=== PATIENT | female | born 1940 | race Caucasian/White ===

== ENCOUNTER 2019-08-06 17:46 | Emergency (ER) | payer MEDICARE, OTHER ==
--- OUTSIDE RECORDS SUMMARY | 2019-08-06 18:14 | XMS REPORT | Continuity of Care Document ---
:1940 External Reference #:[id number] Author Name MICHELLE Nicole (transmitted by agent of provider Dawood Hager M.D.) Address [address] [place] [address] Care Team Providers Name Role Phone Russ Fallon MD - Orthopaedic Surgery Care Team Information Personnel Arbitrator [phone] Dewayne Nelson MD - Wound Care Care Team Information Personnel Arbitrator [facility] - Clinic/Center Care Team Information Personnel Arbitrator Problems Active Problems Provider Date Benign essential hypertension Dawood Hager M.D. Onset: 01/08/2007 Hypothyroidism Dawood Hager M.D. Onset: 01/08/2007 Pure hypercholesterolemia Dawood Hager M.D. Onset: 01/08/2007 Rheumatoid arthritis Dawood Hager M.D. Onset: 01/08/2007 Osteoporosis Dawood Hager M.D. Onset: 11/14/2007 Degenerative joint disease involving multiple Dawood Hager M.D. Onset: joints Irritable bowel syndrome Dawood Hager M.D. Onset: 10/09/2011 Gastroesophageal reflux disease Dawood Hager M.D. Onset: 05/21/2017 Mixed hyperlipidemia Dawood Hager M.D. Onset: 05/21/2017 Rheumatoid arthritis with organ / system Dawood Hager M.D. Onset: 2015 involvement Osteochondropathy Dawood Hager M.D. 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 Onset: 10/11/2015 Vitamin D deficiency Dawood Hager M.D. 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 Onset: 05/27/2015 Social History Type Date Description Comments Sex Unknown Tobacco Use Start: Unknown Nonsmoker Tobacco Use Start: Unknown Patient has never smoked Smoking Status Reviewed: 08/06/19 Patient has never smoked Allergies, Adverse Reactions, Alerts Active Allergies Reaction Severity Comments Date Penicillin 03/07/2006 Erythromycin 03/07/2006 Tetracycline 03/07/2006 Oysters 03/07/2006 Shellfish-derived Products 02/08/2011 Meloxicam rash 05/08/2012 Linezolid 10/19/2014 Keflex Anaphylaxis 04/17/2016 Gabapentin itch 08/30/2016 Medications Active Medications SIG Qnty Indications Ordering Date Provider Fluconazole take 1 by mouth 2tabs N76.0 Flores 06/24/2019 100mg with onset vaginal Vee, [employer]ATION [employer] Tablets yeast symptoms, if incomplete response, repeat at 5-7 days Levothyroxine Sodium take 1 tablet by 90tabs E03.9 Flores 04/14/2019 mouth every day Vee, [employer] 100mcg Tablets Atenolol Take 1 Tablet By 90tabs Dawood Hager, 08/29/2017 100mg Mouth Every Day M.D. Tablets Gauze Dressing dispense quantity M05.20 Flores 03/05/2017 4"X4" 60 for 2 times Vee, [employer]ATION [employer] Pads daily use Gauze Bandage dispense quantity M05.20 Flores 03/05/2017 for daily use Vee, [employer] rolls 3" guaze wrap Santyl apply sparingly to 90gm M79.605 Flores 11/08/2016 250Unit/GM wounds of Vee, [employer] Ointment bilateral lower extremities daily with dsg change Xeroform Occlusive dispense one box OneBox M79.605 Flores 11/08/2016 Petroltum Gauze guazes for daily Vee, [employer] Patch 4"X4" dressing changes 4"X4" Pads Oxycodone-Acetaminop 1 tab by mouth 90tabs Flores 11/08/2016 hen three times a day NATALIIA Baxter 5-325mg Tablets as needed for pain Potassium Chloride 1 by mouth 2-3 100tabs Flores 01/11/2016 ER times per week MCKAYLA BaxterP 20Meq Tablets ER Triamterene/Hydrochl 2-3 times per week 30caps Dawood Hager MD 2014 orothiazide 37.5-25mg Capsules Epipen 2-Omid use as directed 2units Flores 05/27/2015 VeeMCKAYLA tranP 0.3mg/0.3ML Solution Auto-Inject Hydroxyzine HCL take 1 tablet by 90tabs Flores 03/07/2006 10mg mouth every day . MCKAYLA BaxterP Tablets max daily dose: 1 tablet Atorvastatin Calcium take 1 tablet by 90tabs Flores 03/07/2006 mouth every day NATALIIA Baxter 10mg Tablets Loperamide HCL daily 20tabs Unknown 2mg Tablets Silvadene two times a day as 170gm Flores 1% Cream needed NATALIIA Baxter Vitamin D 1 by mouth every Unknown 800Iu day Tablets History Medications Prednisone take 2 po bid x 30tabs M79.604 Flores 05/23/2019 - 5mg 3 days, then NATALIIA Baxter 06/24/2019 Tablets take 1 po tid x 3 days, then take 1 po bid x 3 days, then 1 po qd x 3 days, then stop Doxycycline Hyclate take one 180caps L03.115 Flores 04/18/2019 - capsule by NATALIIA Baxter 06/24/2019 100mg Capsules mouth twice a day Immunizations CPT Code Status Date Vaccine Lot # [id number] Given 02/10/2015 Pneumococcal Conjugate Vacc-13 [id number] Given 07/26/2014 DO Not Use Split Influenza Virus Vaccine [id number] Given 08/09/2011 Split Influenza Medicare: Fludomenica [id number] Given 08/22/2010 DO Not Use Split Influenza Virus Vaccine [id number] 51274 Given 07/10/2009 DO Not Use Split Influenza Virus Vaccine [id number] 30987 Given 09/07/2008 Pneumococcal Immunization [id number] Vital Signs Date Vital Result Comment 08/06/2019 4:34pm BP Systolic 120 mmHg BP Diastolic 88 mmHg Heart Rate 68 /min Body Temperature 98.4 F Respiratory Rate 18 /min Weight 230.00 lb 06/24/2019 2:31pm BP Systolic 126 mmHg BP Diastolic 80 mmHg Heart Rate 70 /min Body Temperature 98.4 F Respiratory Rate 17 /min Height 59.25 inches 4'11.25" Weight 218.00 lb BMI (Body Mass Index) 43.7 kg/m2 Results Test Date Facility Test Result H/L Range Note Wound 07/01/2019 [facility] Wound/Misc SEE RESULT BELOW 1 Culture/Sensi Culture-Gram Stain 1 SEE RESULT BELOW Name: BERTHA WHEELER : [address]: Dewayne Nelson MD Acct: [id number] Unit: [id number] AGE: 79 Location: WOUND Re07/01/19 SEX: F Status: REG REF SPEC: [id number] NOBLE: 07/01/[address] [facility] [address]: Dewayne Nelson MD REQ: [id number] RECD: 07/01/19 STATUS: SWAPNA APPIAH DR: Dawood Hager MD _ SOURCE: LEG, RIGHT SPDESC: ORDERED: Culture Stain Procedure Result Reported Site Wound/Misc Gram Stain Final 07/02/19- 46 ML No Neutrophils Observed 1+ Epithelial Cells 4+ Gram Positive Cocci 1+ Gram Negative Bacilli Wound/Misc Culture Final 07/05/19- 912 ML Organism 1 PSEUDOMONAS AERUGINOSA Quantity 3+ Organism 2 SERRATIA MARCESCENS Quantity 2+ Organism 3 STREP AGALACTIAE - (GROUP B) Quantity 2+ Organism 4 ESBL KLEBSIELLA OXYTOCA Quantity 1+ Organism 5 NORMAL XUAN Quantity 1+ STREP AGALACTIAE - (GROUP B):Organism nonviable for further testing. This isolate is an Extended Spectrum Beta-Lactamase 3Rd Grade Teacher (ESBL) strain, and as such is considered resistant for all penicillins, cephalosporins and aztreonam. 1. PSEUDOMONAS AERUGINOSA [facility] RX --------- ------ Cefazolin >=64 R Cefepime 4 S Ciprofloxacin 2 I Gentamicin 4 S Levofloxacin >=8 R Meropenem <=0.25 S CONTINUED ON NEXT PAGE DEPARTMENT OF PATHOLOGY, [address] [place] [address] Ed Boston M.D. Director [facility] # [id number] Specimen: [id number] Collected: 07/01/19 Received: 07/01/19 (Continued) Procedure Result Reported Site Wound/Misc Culture Final (continued) 07/05/19912 1. PSEUDOMONAS AERUGINOSA (continued) [facility].I.C. RX --------- ------ Pipercillin/Tazobactam <=4 S 2. SERRATIA MARCESCENS [facility] RX --------- ------ Cefazolin >=64 R Cefepime <=1 S Ceftriaxone <=1 S Ciprofloxacin <=0.25 S Gentamicin <=1 S Levofloxacin <=0.12 S Meropenem <=0.25 S Tetracycline >=16 R Trimethoprim/Sulfamethoxazole <=20 S Amoxicillin/Clavulanic Acid >=32 R Aztreonam <=1 S 3. STREP AGALACTIAE - (GROUP B) [facility].I.[facility]. RX --------- ------ Ampicillin <=0.25 S Penicillin <=0.12 S Clindamycin S Levofloxacin 1 S Linezolid 2 S * Moxifloxacin <=0.25 S * Quinupristin/Dalfopristin <=0.25 S Tetracycline >=16 R 4. ESBL KLEBSIELLA OXYTOCA [facility].I.C. RX --------- ------ Ampicillin >=32 R Cefazolin >=64 R Cefepime R Ceftriaxone >=64 R Ciprofloxacin 2 I Gentamicin <=1 S Levofloxacin 1 S Meropenem <=0.25 S Tetracycline >=16 R Pipercillin/Tazobactam 32 I Trimethoprim/Sulfamethoxazole >=320 R CONTINUED ON NEXT PAGE DEPARTMENT OF PATHOLOGY, [address] [place] [address] Ed Boston M.D. Director [facility] # [id number] Specimen: [id number] Collected: 07/01/19 Received: 07/01/19 (Continued) Procedure Result Reported Site Wound/Misc Culture Final (continued) 07/05/19- 912 4. ESBL KLEBSIELLA OXYTOCA (continued) M.I.C. RX --------- ------ Amoxicillin/Clavulanic Acid 16 I Aztreonam >=64 R * These antibiotics are not available in the [facility] Formulary Contact the Microbiology Department for any additional antibiotic reporting. Contact the Microbiology Department for any additional antibiotic reporting. * ML - Main Lab . END OF REPORT DEPARTMENT OF PATHOLOGY, [address] [place] [address] Ed Boston M.D. Director [facility] # [id number] Procedures Date Code Description Status 06/13/2018 [id number] Mammogram Completed 09/10/2017 [id number] Bone Mineral Density Test Completed 03/12/2017 [id number] Mammogram Completed 11/28/2016 [id number] Colonoscopy Completed 12/13/2015 [id number] Mammogram Completed 04/21/2015 [id number] Mammogram Completed 02/14/2013 [id number] Mammogram Completed 10/04/2011 [id number] Colonoscopy Completed 01/24/2011 [id number] Mammogram Completed 03/13/2008 [id number] Mammogram Completed 12/26/2006 [id number] Mammogram Completed 06/13/2006 [id number] Colonoscopy Completed Medical Devices Description No Information Available Encounters Type Date Location Provider Dx Diagnosis Office Visit 06/24/2019 Main Office Flores Baxter, I89.0 Lymphedema, not 2:15p [employer] elsewhere classified M79.604 Pain in right leg L03.115 Cellulitis of right lower limb 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 [facility] N76.0 Acute vaginitis Office Visit 05/23/2019 2:45p Main Office Flores I89.0 Lymphedema, not Vee, [employer] elsewhere classified M79.604 Pain in right leg L03.115 Cellulitis of right lower limb 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 [facility] Office Visit 04/29/2019 3:00p Main Office Flores M05.20 Rheumatoid Vee, [employer] vasculitis with rheumatoid arthritis of [facility] I89.0 Lymphedema, not elsewhere classified M79.604 Pain in right leg L03.115 Cellulitis of right lower limb Office Visit 04/18/2019 1:45p Main Office Flores M05.20 Rheumatoid Vee, [employer] vasculitis with rheumatoid arthritis of [facility] I89.0 Lymphedema, not elsewhere classified M79.604 Pain in right leg L03.115 Cellulitis of right lower limb Assessments Date Code Description Provider 08/06/2019 R21 Rash and other nonspecific skin eruption MICHELLE Nicole 06/24/2019 I89.0 Lymphedema, not elsewhere classified NATALIIA Laughlin 06/24/2019 M79.604 Pain in right leg MCKAYLA LaughlinP 06/24/2019 L03.115 Cellulitis of right lower limb NATALIIA Laughlin 06/24/2019 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 Flores Vee, [employer] arthritis of unspecifi 06/24/2019 N76.0 Acute vaginitis Flores Vee, [employer] 05/23/2019 I89.0 Lymphedema, not elsewhere classified Flores Vee, [employer] 05/23/2019 M79.604 Pain in right leg Flores Vee, [employer] 05/23/2019 L03.115 Cellulitis of right lower limb Flores Vee, [employer] 05/23/2019 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 Flores Vee, [employer] arthritis of unspecifi 04/29/2019 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 Flores Vee, [employer] arthritis of unspecifi 04/29/2019 I89.0 Lymphedema, not elsewhere classified Flores Vee, [employer] 04/29/2019 M79.604 Pain in right leg Flores Vee, [employer] 04/29/2019 L03.115 Cellulitis of right lower limb Flores Vee, [employer] 04/18/2019 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 at Main [facility]2008/06/2019 - Heidy Blanco, PAR21 Rash and other nonspecific skin eruptionComments:Sent to Emergency Room for further evaluation.Dr. Hager gave report to ER MD. Patient was warned ofthe risks of not going to the emergency room for further evaluation including loss of limb or .AllComments: PCMHMedication Management Patient Understands medications he's taking? Yes Are there Barriers to Adherence? No Has the patient been asked about herbal supplements and therapies, and OTC meds? Yes Care Plan1. Patient has been queried about patient's goals/preferences and functional/ lifestyle goals at relevant visits. Yes If relevant, describe: N/A2. Treatment goals as explained to the patient: above3. Are there barriers to meeting treatment goals? No If Yes, please describe:4. Self-Management goals as described to the patient: Yes As always, we strongly encourage a healthy diet and making physical activity a part of your every day life. If you have questions about how or where to start, please contact the office. Functional Status Description No Information Available Mental Status Description No Information Available Referrals Refer to Reason for Referral Status Appt Date [facility] W[facility] Consult and treat. Office note, labs and triage Sent faxed. LT [address] Floor AT [address] [address] [phone]
--- OUTSIDE RECORDS SUMMARY | 2019-08-06 18:14 | XMS REPORT | Continuity of Care Document ---
:1940 External Reference #:[id number] Author Name Cecilia Noriega NP (transmitted by agent of provider Mary Alexandra) Address [address] [place] [id number] Care Team Providers Name Role Phone Dawood Hager MD - Family Care Team Information [employer] Therapist [phone] Medicine Problems Active Problems Provider Date Rheumatoid arthritis Doe Moreno M.D. Onset: 07/30/2012 Medications Care Home (Current) Use Encounter Doe Moreno M.D. Onset: 06/2012 Lumbosacral spondylosis without myelopathy Doe Moreno M.D. Onset: 2011 Localized, primary osteoarthritis of the lower Doe Moreno M.D. Onset: leg Malaise and fatigue Doe Moreno M.D. Onset: 04/03/2013 Hypothyroidism Doe Moreno M.D. Onset: 06/19/2013 Allergic urticaria Doe Moreno M.D. Onset: 06/19/2013 Degenerative joint disease involving multiple Inocente Palomino M.D. Onset: 06/23 joints Migraine Inocente Palomino M.D. Onset: 08/31/2014 Cellulitis and abscess of foot excluding toe Inocente Palomino M.D. Onset: 2013 Cellulitis and abscess of lower limb Inocente Palomino M.D. Onset: 09/09/2014 Eruption Inocente Palomino M.D. Onset: 09/09/2014 Cellulitis Inocente Palomino M.D. Onset: 09/16/2014 Hypersensitivity angiitis Inocente Palomino M.D. Onset: 09/16/2014 Ulcer of lower extremity Doe Moreno M.D. Onset: 12/07/2014 Taking medication Doe Moreno M.D. Onset: 12/07/2014 Pruritus of skin Doe Moreno M.D. Onset: 03/01/2015 Social History Type Date Description Comments Sex Unknown Tobacco Use Start: Unknown Never Smoked Cigarettes ETOH Use Occasionally consumes alcohol Tobacco Use Start: Unknown Patient has never smoked Recreational Drug Use Denies Drug Use Smoking Status Reviewed: 07/24/19 Patient has never smoked Allergies, Adverse Reactions, Alerts Active Allergies Reaction Severity Comments Date Sulfa 01/27/2011 Keflex 01/27/2011 Penicillin 01/27/2011 Erythromycin 01/27/2011 Shellfish-derived Products 01/27/2011 Tetracycline 01/27/2011 Clindamycin diarrhea 10/08/2014 Zyvox Violent diarrhea 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 Misc and venous stasis with compression stockings Epipen 2-Omid take as directed 2uzair Casper, 04/25/2018 for severe M.D. 0.3mg/0.3ML Solution allergic reaction Auto-Inject Caltrate 600+D take one 180tabs Tray Casper, 09/16/2017 capsule/tablet by [facility] [id number] mouth twice daily Tablets Atorvastatin Calcium Take 1 Tablet 90tabs Doe Moreno, 02/22/2015 Daily M.D. 10mg Tablets Triamterene/Hydrochl Take 1 Capsule 90caps Doe Moreno, 09/09/2012 orothiazide Daily (Pt. is M.D. 37.5-25mg taking this only Capsules two times a week) Hydroxyzine HCL take 1 tablet at 120tabs Doe Moreno, 06/01/2011 10mg bedtime and as M.D. Tablets needed every day Aspirin 1 po qd (pt is Unknown [address] aspirins a day) Potassium Chloride 1 po twice a week 30tabs Unknown ER 20Meq Tablets ER Atenolol take 2 tablet Unknown 50mg Tablets daily Levothyroxine Sodium once a day Unknown 100mcg Solution Rec Multivitamin Adults once a day Unknown 50+ Adlt 50+ Tablets Tums 1 or 2 chewtabs by Unknown 500mg Chewtabs mouth as needed, indigestion Loperamide HCL Unknown 2mg Capsules Gentamicin Sulfate Apply Topicallly Unknown Every Day 0.1% Ointment Medications Administered in Office Medication SIG Qnty Indications Ordering Provider Date SHANKAR Moreno M.D. 03/11/2012 Injection Immunizations CPT Code Status Date Vaccine Reaction Lot # [id number] Given 08/01/2018 Fluzone High Dose [id number] 48490 Given 08/23/2017 Influenza Virus Vaccine, no immediate reaction [id number] Quadrivalent, Split, noted Preservative Free 52803 Given 07/18/2016 Influenza Virus Vaccine, [id number] Quadrivalent, Split, Preservative Free 44193 Given 09/03/2015 Influenza Virus Vaccine, No reaction noted. [id number] Quadrivalent, Split, Preservative Free Q2038 Given 07/30/2012 Fluzone Vaccine [id number] Vital Signs Date Vital Result Comment 07/24/2019 11:52am Height 61 inches 5'1" Weight 214.00 lb Heart Rate 72 /min BP Systolic Sitting 142 mmHg BP Diastolic Sitting 90 mmHg Respiratory Rate 14 /min Body Temperature 98.3 F BMI (Body Mass Index) 40.4 kg/m2 07/17/2019 10:32am Height 61 inches 5'1" Weight 214.00 lb Heart Rate 72 /min BP Systolic Sitting 112 mmHg BP Diastolic Sitting 72 mmHg Respiratory Rate 14 /min Body Temperature 99.7 F BMI (Body Mass Index) 40.4 kg/m2 Results Description No Information Available Procedures Date Code Description Status 07/15/2019 05029 Removal Devitalized Tissue Wound Greater Than 20 Completed Square CM 07/15/2019 50907 Removal Devitalized Tissue Wound Greater Than 20 Completed Square CM 07/15/2019 32696 Removal Devitalization Tissue Wound Less Than Equal 20 Completed Square CM 07/08/2019 36882 Removal Devitalized Tissue Wound Greater Than 20 Completed Square CM 07/08/2019 87140 Removal Devitalization Tissue Wound Less Than Equal 20 Completed Square CM 07/01/2019 39744 Removal Devitalized Tissue Wound Greater Than 20 Completed Square CM 07/01/2019 71699 Removal Devitalized Tissue Wound Greater Than 20 Completed Square CM 07/01/2019 64441 Removal Devitalized Tissue Wound Greater Than 20 Completed Square CM 07/01/2019 70794 Removal Devitalization Tissue Wound Less Than Equal 20 Completed Square CM 02/10/2019 38365 ECHO Transthoracic, Real-Time 2D With Doppler And Completed Color Flow 02/10/2019 57044 ECHO Transthoracic, Real-Time 2D With Doppler And Completed Color Flow 09/10/2017 [id number] Bone Mineral Density Test Completed 11/28/2016 [id number] Colonoscopy Completed 09/07/2015 [id number] Bone Mineral Density Test Completed 02/14/2013 [id number] Mammogram Completed 08/08/2011 775273946 Bone Mineral Density Test Completed Medical Devices Description No Information Available Encounters Description No Information Available Assessments Date Code Description Provider 07/24/2019 L03.115 Cellulitis of right lower limb Cecilia Noriega NP 07/24/2019 I87.313 Chronic venous hypertension Cecilia Noriega NP (idiopathic) with ulcer of bilateral lower extremity 07/24/2019 I89.0 Lymphedema, not elsewhere Cecilia Noriega NP classified 07/17/2019 L03.115 Cellulitis of right lower limb Cecilia Noriega NP 07/17/2019 I87.313 Chronic venous hypertension Cecilia Noriega NP (idiopathic) with ulcer of bilateral lower extremity 07/17/2019 I89.0 Lymphedema, not elsewhere Cecilia Noriega NP classified 07/15/2019 I87.313 Chronic venous hypertension Dewayne Nelson M.D. (idiopathic) with ulcer of bilateral lower extremity 07/15/2019 I89.0 Lymphedema, not elsewhere Dewayne Nelson M.D. classified 07/08/2019 I87.313 Chronic venous hypertension Dewayne Nelson M.D. (idiopathic) with ulcer of bilateral lower extremity 07/08/2019 I89.0 Lymphedema, not elsewhere Dewayne Nelson M.D. classified 07/01/2019 I87.313 Chronic venous hypertension Dewayne Nelson M.D. (idiopathic) with ulcer of bilateral lower extremity 07/01/2019 I89.0 Lymphedema, not elsewhere Dewayne Nelson M.D. classified 02/10/2019 I51.89 Other ill-defined heart diseases Arian Banuelos M.D., [facility] 02/10/2019 I51.89 Other ill-defined heart diseases Traveling ECHO 1 02/10/2019 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 with Traveling ECHO 1 rheumatoid arthritis of unspecifi Plan of Treatment Future Appointment(s):08/15/2019 3:00 pm - Cecilia Noriega NP at [facility]zcl[facility]78/03/2019 - Cecilia Noriega NPL03.115 Cellulitis of right lower limbFollow up:2-3 otcrjQ31.313 Chronic venous hypertension w ulcer of bilateral low hqwljE61.0 Lymphedema, not elsewhere classified Functional Status Description No Information Available Mental Status Description No Information Available Referrals Description No Information Available
--- OUTSIDE RECORDS SUMMARY | 2019-08-06 18:14 | XMS REPORT | Continuity of Care Document ---
:1940 External Reference #:[id number] Author Name Flores Baxter, NATALIIA Address [address] [place] [address] Care Team Providers Name Role Phone Russ Fallon MD - Orthopaedic Surgery Care Team Information Java J2Ee Technical Lead Dewayne Nelson MD - Wound Care Care Team Information Java J2Ee Technical Lead [facility] [place] [facility]/Center Care Team Information Java J2Ee Technical Lead [phone] Problems Active Problems Provider Date Benign essential [...] Use Start: Unknown Patient has never smoked Allergies, Adverse Reactions, Alerts Active Allergies Reaction Severity Comments Date Penicillin 03/07/2006 Erythromycin 03/07/2006 Tetracycline 03/07/2006 Oysters 03/07/2006 Shellfish-derived Products 02/08/2011 Meloxicam rash 05/08/2012 Linezolid 10/19/2014 Keflex Anaphylaxis 04/17/2016 Gabapentin itch 08/30/2016 Medications Active Medications SIG Qnty Indications Ordering Date Provider Fluconazole take 1 by mouth 2tabs N76.0 Florse 06/24/2019 100mg with onset vaginal Vee, CAR CLE[employer]ER Tablets yeast symptoms, if incomplete response, repeat at 5-7 days Levothyroxine Sodium take 1 tablet by 90tabs E03.9 Flores 04/14/2019 mouth every day Vee, [employer] CLE[employer]ER 100mcg Tablets Atenolol Take 1 Tablet By 90tabs Dawood Hager, 08/29/2017 100mg Mouth Every Day M.D. Tablets Gauze Dressing dispense quantity M05.20 Flores 03/05/2017 4"X4" 60 for 2 times Vee, CAR CLEANER Pads daily use Gauze Bandage dispense quantity M05.20 Flores 03/05/2017 for daily use Vee, CAR CLEANER rolls 3" guaze wrap Santyl apply sparingly to 90gm M79.605 Flores 11/08/2016 250Unit/GM wounds of Vee, [employer] CLEANER Ointment bilateral lower extremities daily with dsg change Xeroform Occlusive dispense one box OneBox M79.605 Flores 11/08/2016 Petroltum Gauze guazes for daily Vee, [employer] CLE[employer]ER Patch 4"X4" dressing changes 4"X4" Pads Oxycodone-Acetaminop 1 tab by mouth 90tabs Flores 11/08/2016 hen three times a day Vee, [employer] CLE[employer]ER 5-325mg Tablets as needed for pain Potassium Chloride 1 by mouth 2-3 100tabs [place] 01/11/2016 ER times per week Vee, [employer] CLE[employer]ER 20Meq Tablets ER Triamterene/Hydrochl 2-3 times per week 30caps Dawood Hager MD 2014 orothiazide 37.5-25mg Capsules Epipen 2-Omid use as directed 2units [place] 05/27/2015 Vee, CAR CLE[employer]ER 0.3mg/0.3ML Solution Auto-Inject Hydroxyzine HCL take 1 tablet by 90tabs [place] 03/07/2006 10mg mouth every day . Vee, [employer] CLE[employer]ER Tablets max daily dose: 1 tablet Atorvastatin Calcium take 1 tablet by 90tabs [place] 03/07/2006 mouth every day Vee, [employer] CLE[employer]ER 10mg Tablets Loperamide HCL daily 20tabs Unknown 2mg Tablets Silvadene two times a day as 170gm [place] 1% Cream needed Vee, [employer] CLE[employer]ER Vitamin D 1 by mouth every Unknown 800Iu day Tablets History Medications Prednisone take 2 po bid x 3 30tabs M79.604 [place] 05/23/2019 - 5mg days, then take 1 Vee, [employer] CLE[employer] 06/24/2019 Tablets po tid x 3 days, then take 1 po bid x 3 days, then 1 po qd x 3 days, then stop Doxycycline take one capsule 180caps L03.115 [place] 04/18/2019 - Hyclate by mouth twice a Vee, [employer] CLE[employer]ER 06/24/2019 100mg day Capsules Doxycycline take one by mouth 90caps [place] 01/23/2019 - Hyclate daily/ has taken Vee, [employer] CLE[employer]ER 04/18/2019 100mg doxycycline Capsules without difficulty in past Immunizations CPT Code Status Date Vaccine Lot # [id number] Given 02/10/2015 Pneumococcal Conjugate Vacc-13 [id number] Given 07/26/2014 DO Not Use Split Influenza Virus Vaccine [id number] Given 08/09/2011 Split Influenza Medicare: Fludomenica [id number] Given 08/22/2010 DO Not Use Split Influenza Virus Vaccine [id number] 72880 Given 07/10/2009 DO Not Use Split Influenza Virus Vaccine [id number] 35688 Given 09/07/2008 Pneumococcal Immunization [id number] Vital Signs Date Vital Result Comment 06/24/2019 2:31pm BP Systolic 126 mmHg BP Diastolic 80 mmHg Heart Rate 70 /min Body Temperature 98.4 F Respiratory Rate 17 /min Height 59.25 inches 4'11.25" Weight 218.00 lb BMI (Body Mass Index) 43.7 kg/m2 05/23/2019 3:07pm BP Systolic 128 mmHg BP Diastolic 88 mmHg Heart Rate 57 /min Body Temperature 97.7 F Respiratory Rate 20 /min O2 % BldC Oximetry 95 % Height 59.25 inches 4'11.25" Weight 220.00 lb BMI (Body Mass Index) 44.1 kg/m2 Results Test Date Facility Test Result H/L Range Note Laboratory test 01/23/2019 Mazin Dannielle([facility]) TSH 3.09 mIU/L 0.50-6.00 finding Free T4 1.13 ng/dL 0.75-1.54 CBC Electronic Fma 01/23/2019 Mazin Spicer([facility]) WBC 8.5 x10^3/UL 4.0- 10.0 RBC 4.66 x10^6/UL 3.93-6.00 HGB 12.9 g/dL 12.0-17.0 HCT 40 % 35-50 MCV 85.6 fL 80.0-95.0 MCH 27.7 pg 25.6-32.2 MCHC 32.3 g/dL 32.2-36.0 RDW-CV 14.5 % High 11.6-14.4 PLT 263 x10^3/UL 163-400 MPV 8.7 fL Low 9.4-12.4 Shanelle# 6.57 x10^3/UL High 1.56-6.13 Lymph# 1.18 x10^3/UL 1.18-3.74 Lyman# 0.69 x10^3/UL 0.24-0.82 Eos # 0.0 x10^3/UL 0.0-0.5 Baso # 0.00 x10^3/UL Low 0.01-0.08 Shanelle% 77.7 % High 34.0-70.0 Lymph % 13.9 % Low 20.0-52.0 Lyman% 8.2 % 5.0-12.0 Eos% 0.0 % Low 0.7-7.0 Baso% 0.0 % Low 0.1-1.2 Comprehensive Metabolic 01/23/2019 Retana Dannielle([facility]) Sodium 142 mEq/L 134-149 Prof Potassium 5.1 mEq/L 3.6-5.5 Chloride 102 mEq/L 94-112 Carbon Dioxide 30 mEq/L 21-32 Glucose 85 mg/dL 70-105 BUN 22 mg/dL 6-26 Creatinine 0.9 mg/dL 0.6-1.4 BUN/Creat Ratio 24.4 CALC 8.0-36.0 Calcium 9.9 mg/dL 8.6-10.2 Total Protein 6.9 g/dL 6.4-8.3 Albumin 4.3 g/dL 3.8-5.5 Globulin 2.6 g/dL 2.0-4.8 A/G Ratio 1.7 CALC 0.6-2.3 Alk. Phosphatase 99 U/L 30-110 Alt (SGPT) 18 U/L 7-35 Ast (Sgot) 26 U/L 5-34 Total Bilirubin 0.5 mg/dL 0.2-1.3 GFR Non- >60 ml/min/1.73m^ >=60 GFR >60 ml/min/1.73m^ >=60 Procedures Date Code Description Status 06/13/2018 [id number] Mammogram Completed 09/10/2017 [id number] Bone Mineral Density Test Completed 03/12/2017 [id number] Mammogram Completed 11/28/2016 [id number] Colonoscopy Completed 12/13/2015 [id number] Mammogram Completed 04/21/2015 [id number] Mammogram Completed 02/14/2013 [id number] Mammogram Completed 10/04/2011 [id number] Colonoscopy Completed 01/24/2011 [id number] Mammogram Completed 03/13/2008 [id number] Mammogram Completed 12/26/2006 [id number] Mammogram Completed 06/13/2006 [id number] Colonoscopy Completed Medical Devices Description No Information Available Encounters Type Date Location Provider Dx Diagnosis Office Visit 05/23/2019 Main Office Flores Baxter, I89.0 Lymphedema, not 2:45p CAR CLEANER elsewhere classified M79.604 Pain in right leg L03.115 Cellulitis of right lower limb 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 [facility] Office Visit 04/29/2019 3:00p Main Office Flores 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 Rheumatoid Vee, [employer] CLE[employer]ER vasculitis with rheumatoid arthritis of [facility] I89.0 Lymphedema, not elsewhere classified M79.604 Pain in right leg L03.115 Cellulitis of right lower limb Office Visit 04/18/2019 1:45p Main Office Flores 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 Rheumatoid Vee, [employer] CLE[employer] vasculitis with rheumatoid arthritis of [facility] site I89.0 Lymphedema, not elsewhere classified M79.604 Pain in right leg L03.115 Cellulitis of right lower limb Office Visit 01/23/2019 [place] Flores E03.9 Hypothyroidism, 2:00p Office Vee, [employer] CLE[employer]ER unspecified 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 [facility] site I89.0 Lymphedema, not elsewhere classified M79.605 Pain in left leg N39.41 Urge incontinence K92.1 Melena Assessments Date Code Description Provider 06/24/2019 I89.0 Lymphedema, not elsewhere classified Flores Vee, [employer] 06/24/2019 M79.604 Pain in right leg Flores Vee, [employer] 06/24/2019 L03.115 Cellulitis of right lower limb Flores Vee, [facility] 06/24/2019 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 Flores Vee, [employer] CLE[employer] arthritis of unspecifi 06/24/2019 N76.0 Acute vaginitis Flores Vee, [employer] 05/23/2019 I89.0 Lymphedema, not elsewhere classified Flores Vee, [employer] 05/23/2019 M79.604 Pain in right leg Flores Vee, [facility] 05/23/2019 L03.115 Cellulitis of right lower limb Flores Vee, [employer] 05/23/2019 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 Flores Vee, [employer] arthritis of unspecifi 04/29/2019 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 Flores Vee, [employer] arthritis of unspecifi 04/29/2019 I89.0 Lymphedema, not elsewhere classified Flores Vee, [facility] 04/29/2019 M79.604 Pain in right leg Florestabatha Zamanart, [facility] 04/29/2019 L03.115 Cellulitis of right lower limb Flores Vee, [facility] 04/18/2019 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 Flores [facility], [facility] arthritis of unspecifi 04/18/2019 I89.0 Lymphedema, not elsewhere classified Flores Vee, [facility] 04/18/2019 M79.604 Pain in right leg Flores Vee, [facility] 04/18/2019 L03.115 Cellulitis of right lower limb Flores Vee, [facility] 01/23/2019 E03.9 Hypothyroidism, unspecified Flores Vee, [facility] 01/23/2019 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 Flores [facility], [facility] arthritis of unspecifi 01/23/2019 I89.0 Lymphedema, not elsewhere classified Flores Vee, [facility] 01/23/2019 M79.605 Pain in left leg Flores Vee, [facility] 01/23/2019 N39.41 Urge incontinence Flores Vee, [facility] 01/23/2019 K92.1 Sarai Tanner [facility], [facility] Plan of Treatment 06/24/2019 - Flores Baxter, FNPI89.0 Lymphedema, not elsewhere dgdxooatcvR08.604 Pain in right legL03.115 Cellulitis of right lower limb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 unspecifiFollow up:3 month follow-up with Dr Alvarez76.0 Acute vaginitisNew Medication:Fluconazole 100 mg - take 1 by mouth with onset vaginal yeast symptoms, if incomplete response, repeat at 5-7 daysFollow up:call ROSE if condition changes/worsens in any wayAllComments:Medication Management Patient Understands medications he 's taking? Yes No Are there Barriers to Adherence? Yes No Has the patient been asked about herbal supplements and therapies, andOTC meds? Yes No As always, we strongly encourage a healthy diet and making physical activity a part of your every day life. If you have questions about how or where to start, please contact the office. Functional Status Description No Information Available Mental Status Description No Information Available Referrals Refer to Reason for Referral Status Appt Date Didi Jon MD Echocardiogram ind: rheumatoid arthritis ? Scheduled 02/10 cardiac involvment [place] [id number] [phone]
--- OUTSIDE RECORDS SUMMARY | 2019-08-06 18:14 | XMS REPORT | Continuity of Care Document ---
:1940 External Reference #:[id number] Author Name Cecilia Noriega NP (transmitted by agent of provider Sabina Oakes) Address [address] [place] [id number] Care Team Providers Name Role Phone Dawood Hager MD - Family Care Team Information Set Staff Fitter [phone] Medicine Problems Active Problems Provider Date Rheumatoid arthritis Doe Moreno M.D. Onset: 07/30/2012 Medications Criminal Intelligence Specialist (Current) Use Encounter Doe Moreno M.D. Onset: [...] Patient has never smoked Smoking Status Reviewed: 07/17/19 Patient has never smoked Allergies, Adverse Reactions, [...] 14 days Stocking Applicator apply to help 2uzair [place], 08/01/2018 Regular edema/spider veins M.D. Misc and venous stasis with compression stockings Epipen 2-Omid take as directed 2uzair Casper, 04/25/2018 for severe M.D. 0.3mg/0.3ML Solution allergic reaction Auto-Inject Caltrate 600+D take one 180tabs Tray Casper, 09/16/2017 capsule/tablet by [facility] [id number] mouth twice daily Tablets Atorvastatin Calcium Take [...] Code Status Date Vaccine Reaction Lot # [id number] Given 08/01/2018 Fluzone High Dose [id number] 84690 Given 08/23/2017 Influenza Virus Vaccine, no immediate reaction [id number] Quadrivalent, Split, noted Preservative Free 02824 Given 07/18/2016 Influenza Virus Vaccine, [id number] Quadrivalent, Split, Preservative Free 07569 Given 09/03/2015 Influenza Virus Vaccine, No reaction noted. [id number] Quadrivalent, Split, Preservative Free Q2038 Given 07/30/2012 Fluzone Vaccine [id number] Vital Signs Date Vital Result Comment 07/17/2019 10:32am Height 61 inches 5'1" Weight 214.00 lb Heart Rate 72 /min BP Systolic Sitting 112 mmHg BP Diastolic Sitting 72 mmHg Respiratory Rate 14 /min Body Temperature 99.7 F BMI (Body Mass Index) 40.4 kg/m2 11/05/2018 2:25pm Height 61 inches 5'1" Weight 216.38 lb Heart Rate 62 /min BP Systolic Sitting 152 mmHg BP Diastolic Sitting 94 mmHg Pain Level 7 O2 % BldC Oximetry 97 % BMI (Body Mass Index) 40.9 kg/m2 Results Description No Information Available Procedures Date Code Description Status 07/15/2019 06621 Removal Devitalized Tissue Wound Greater Than 20 Completed Square CM 07/15/2019 75264 Removal Devitalized Tissue Wound Greater Than 20 Completed Square CM 07/15/2019 84072 Removal Devitalization Tissue Wound Less Than Equal 20 Completed Square CM 07/08/2019 33711 Removal Devitalized Tissue Wound Greater Than 20 Completed Square CM 07/08/2019 70030 Removal Devitalization Tissue Wound Less Than Equal 20 Completed Square CM 07/01/2019 15915 Removal Devitalized Tissue Wound Greater Than 20 Completed Square CM 07/01/2019 19156 Removal Devitalized Tissue Wound Greater Than 20 Completed Square CM 07/01/2019 96486 Removal Devitalized Tissue Wound Greater Than 20 Completed Square CM 07/01/2019 76226 Removal Devitalization Tissue Wound Less Than Equal 20 Completed Square CM 02/10/2019 06487 ECHO Transthoracic, Real-Time 2D With Doppler And Completed Color Flow 02/10/2019 66608 ECHO Transthoracic, Real-Time 2D With Doppler And Completed Color Flow 09/10/2017 [id number] Bone Mineral Density Test Completed 11/28/2016 [id number] Colonoscopy Completed 09/07/2015 [id number] Bone Mineral Density Test Completed 02/14/2013 [id number] Mammogram Completed 08/08/2011 [id number] Bone Mineral Density Test Completed Medical Devices Description No Information Available Encounters Description No Information Available Assessments Date Code Description Provider 07/17/2019 L03.115 Cellulitis of right lower limb [...] Other ill-defined heart diseases Arian Banuelos M.D., [facility] 02/10/2019 I51.89 Other ill-defined heart diseases Traveling ECHO 1 02/10/2019 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 with Traveling ECHO 1 rheumatoid arthritis of unspecifi Plan of Treatment Future Appointment(s):07/24/2019 11:30 am - Cecilia Noriega NP at [facility]84/26/2019 - Cecilia Noriega, NPL03.115 Cellulitis of right lower limbNew Medication:Ciprofloxacin HCL 500 mg - Take 1 tablet by mouth twice a day for 14 daysComments:Take antibiotics as directed. Change at least the outer dressing as needed if they are saturated. Keep legs elevated and use the compression sleeves as directed by the wound clinic. If you develop worsening symptoms over the weekend such as shortness of breath, fevers, or increased pain and swelling of the right leg go to the emergency room.Follow up:1 weekI87.313 Chronic venous hypertension w ulcer of bilateral low jinhxZ12.0 Lymphedema, not elsewhere classified Functional Status Description No Information Available Mental Status Description No Information Available Referrals Description No Information Available
--- NOTE | 2019-08-06 19:49 | ED ---
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 Hager complains of rash on bilateral inner thighs since yesterday after wearing a norm skirt. States rash is itchy. States she noticed the rash yesterday during her wound care treatment. States she has been getting treatment for her bilateral lower extremities at the [facility]. Symptoms better w hydrocortisone cream and atarax. No oral involvement. 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 - History of Current Complaint Chief Complaint: EDRashSkinAbscess Time Seen by Provider: 08/06/19 19:42 Stated Complaint: RASH ON RIGHT LEG PER PATIENT Hx Obtained From: Patient Onset/Duration: Started Days Ago - 1, Still Present Timing: Constant Skin Location: Other: - bilateral anterior thighs Aggravating Symptom(s): Nothing Alleviating Symptom(s): Nothing - Allergy/Home Medications Allergies/Adverse Reactions: Allergies Allergy/AdvReac Type Severity Reaction Status Date / Time MS Cephalexin [From Keflex] Allergy Severe Rash And Verified 10/14/14 11:01 Itching MS Erythromycin Allergy Severe Rash And Verified 10/14/14 11:01 [Erythromycin] Itching MS Penicillins [Penicillins] Allergy Severe Rash Verified 10/14/14 11:01 MS Shellfish-derived Products Allergy Severe Shortness Verified 10/14/14 11:01 [Shellfish-derived Products] of Breath MS Sulfa Antibiotics Allergy Intermediate Itching Verified 10/14/14 11:01 [Sulfa Antibiotics] MS Tetracycline Allergy Mild Itching Verified 10/14/14 11:01 [Tetracycline] MS Clindamycin [Clindamycin] Allergy Diarrhea Verified 10/14/14 11:01 PMH/Surg Hx/FS Hx/Imm Hx Endocrine/Hematology History: Reports: Hx Thyroid Disease - Hypothyroidism Denies: Hx Diabetes Cardiovascular History: Reports: Hx Deep Vein Thrombosis - 1980 - unsure of which leg - clot., Other Cardiovascular Problems/Disorders - DVT Denies: Hx Congestive Heart Failure, Hx Hypertension Respiratory History: Reports: Hx Pneumonia Denies: Hx Asthma GI History: Reports: Hx Irritable Bowel, Other GI Disorders - gallbladder removal Denies: Hx Ulcer History: Denies: Hx Renal Disease Musculoskeletal History: Reports: Hx Arthritis - RA, Hx Rheumatoid Arthritis, Hx Back Problems - spinal stenosis, Hx Scoliosis Denies: Hx Osteoporosis Sensory History: Reports: Hx Contacts or Glasses Opthamlomology History: Reports: Hx Contacts or Glasses Neurological History: Reports: Hx Migraine, Other Neuro Impairments/Disorders - RHEUMATOID ARTHRITIS AND OSTEOPOROSIS FOR ABOUT 10 YEARS Denies: Hx Spinal Cord Injury - Cancer History Hx Chemotherapy: No Hx Radiation Therapy: No Hx Palliative Cancer Treatment: No - Surgical History Surgery Procedure, Year, and Place: Hysterectomy. Left shoulder. Cholecystectomy. Hx Anesthesia Reactions: No Infectious Disease History: No Infectious Disease History: Denies: Traveled Outside the [place] in Last 30 Days - Social History Alcohol Use: Rare Substance Use Type: Reports: None Smoking Status (MU): Never Smoked Tobacco Have You Smoked in the Last Year: No Review of Systems Negative: Fever Positive: Rash - bilateral inner thighs All Other Systems Reviewed And Are Negative: Yes Physical Exam - Summary Physical Exam Summary: Constitutional: Well-developed, Well-nourished, Alert. (-) Distressed Skin: Warm, Dry, papular non blanching erythematous rash to the inner thighs HENT: Normocephalic; Atraumatic Eyes: Conjunctiva normal Neck: Musculoskeletal ROM normal neck. (-) JVD, (-) Stridor, (-) Nuchal rigidity Cardio: Rhythm regular, rate normal, Heart sounds normal; Intact distal pulses; Radial pulses are 2+ and symmetric. (-) Murmur Pulmonary/Chest wall: Effort normal. (-) Respiratory distress, (-) Wheezes, (-) Rales Abd: Soft, (-) tenderness, (-) Distension, (-) Guarding, (-) Rebound Musculoskeletal: edema to feet, LE wrapped in clean dressing Lymph: (-) Cervical adenopathy Neuro: Alert, Oriented x3 Psych: Mood and affect Normal Triage Information Reviewed: Yes Vital Signs On Initial Exam: Initial Vitals Temp Pulse Resp BP Pulse Ox 98.0 F 57 16 189/84 100 08/06/19 17:55 08/06/19 17:55 08/06/19 17:55 08/06/19 17:55 08/06/19 17:55 Vital Signs Reviewed: Yes Procedures - Sedation Patient Received Moderate/Deep Sedation with Procedure: No Diagnostics - Vital Signs Vital Signs Temp Pulse Resp BP Pulse Ox 08/06/19 17:55 98.0 F 57 16 189/84 100 - Laboratory Lab Statement: Any lab studies that have been ordered have been reviewed, and results considered in the medical decision making process. Re-Evaluation - Re-Evaluation First Eval Re-Evaluation Time: 20:15 Comment: understands d/c instructions Course/Dx - Course Course Of Treatment: 79 y/o F w hx of SJS 40 years ago p/w itchy rash to thighs. - PE w heat rash/contact rash of thighs. LE in dressing (follows w wound clinic). 2+ DP pulses. No oral mucosal involvement to suggest SJS. - using hydrocortisone cream, can take benadryl PRN. - return for worsening symptoms - Diagnoses Provider Diagnoses: [facility] Discharge ED - Sign-Out/Discharge Documenting (check all that apply): Patient Departure - Discharge - Discharge Plan Condition: Stable Disposition: HOME Patient Education Materials: Acute Rash (ED) Referrals: Dawood Hager MD [Primary Care Provider] - Additional Instructions: You were seen in the emergency department for a rash. Your rashe is consistent with something called miliaria rubra which is a rash results with localized inflammation often seen in the inner thighs or axilla where the skin is warm. Please return to emergency by you have worsening of your rash, involvement of your oral mucosa in your mouth, fevers or you're concerned. It was a pleasure taking care of you today. - Billing Disposition and Condition Condition: STABLE Disposition: Home - Attestation Statements Document Initiated by Alonso: Yes Documenting Scribe: Cary Calvin Provider For Whom Alonso is Documenting (Include Credential): Lamont Avelar MD Scribe Attestation: I, Cary Calvin, scribed for Lamont Avelar MD on 08/06/19 at 2023. Scribe Documentation Reviewed: Yes Provider Attestation: The documentation as recorded by the Cary morales accurately reflects the service I personally performed and the decisions made by me, Lamont Avelar MD Status of Scribe Document: Viewed
[2019-08-06 20:37] VITALS: BP 166/80
== END 2019-08-06 20:20 | disposition home or self-care (01) ==
LOC: ED 17:46
DX: L74.3 Miliaria, unspecified (principal); E03.9 Hypothyroidism, unspecified; M06.9 Rheumatoid arthritis, unspecified; Z90.710 Acquired absence of both cervix and uterus; Z90.49 Acquired absence of other specified parts of digestive tract; Z88.1 Allergy status to other antibiotic agents; Z88.0 Allergy status to penicillin; Z88.2 Allergy status to sulfonamides; Z79.890 Hormone replacement therapy; Z79.899 Other long term (current) drug therapy
CPT/HCPCS: 99282

== ENCOUNTER 2019-12-12 16:39 | Emergency (ER) | payer MEDICARE, OTHER ==
[2019-12-12 17:25] LABS: Hematocrit 37 % (35-47); Hemoglobin 11.9 g/dL (12.0-16.0); Mean Corpuscular HGB Conc 33 g/dL (31-36); Mean Corpuscular Hemoglobin 28 pg (27-31); Mean Corpuscular Volume 87 fL (80-97); Mean Platelet Volume 6.9 fL (7.4-10.4); Platelet Count 328 10^3/uL (150-450); Red Blood Count 4.21 10^6 /uL (3.70-4.87); Red Cell Distribution Width 18 % (10-15); White Blood Count 20.7 10^3/uL (3.5-10.8)
[2019-12-12 17:31] LABS: INR 1.15 (0.82-1.09)
[2019-12-12 17:48] LABS: Albumin 3.5 g/dL (3.2-5.2); Albumin/Globulin Ratio 1.2 (1-3); BUN/Creatinine Ratio 33.3 (8-20); Calcium 9.7 mg/dL (8.6-10.3); EGFR Non-African American 42.1 (>60); Potassium 4.7 mmol/L (3.5-5.0); Total Bilirubin 0.6 mg/dL (0.2-1.0); Total Protein 6.5 g/dL (6.4-8.9)
[2019-12-12 17:49] LABS: Troponin I 0.02 ng/mL (<0.03)
[2019-12-12 17:54] LABS: ABS Lymphocytes 0.8 10^3/ul (1.0-4.8); ABS Monocytes 0.5 10^3/ul (0-0.8); ABS Neutrophils 19.5 10^3/ul (1.5-7.7); Lymphocyte % 3.7 %
--- NOTE | 2019-12-12 19:26 | ED ---
HPI Chest Pain - HPI Summary HPI Summary: This patient is a 79 year old female presenting to [facility] with a chief complaint of chest pain since 7 days ago. 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 She states the pain was caused by what felt like distension in her abdomen. She states her symptoms resolved yesterday. She was concerned it may be a reaction to the prednisone. She called her PCP Dr. Hager who told her to come here to get an EKG. She has no Hx of cardiac problems. - History of Current Complaint Chief Complaint: EDChestPainROMI Time Seen by Provider: 12/12/19 17:12 Hx Obtained From: Patient Onset/Duration: Started Days Ago Pain Intensity: 0 Pain Scale Used: 0-10 Numeric - Allergy/Home Medications Allergies/Adverse Reactions: Allergies Allergy/AdvReac Type Severity Reaction Status Date / Time MS Cephalexin [From Keflex] Allergy Severe Rash And Verified 12/12/19 16:53 Itching MS Erythromycin Allergy Severe Rash And Verified 12/12/19 16:53 [Erythromycin] Itching MS Penicillins [Penicillins] Allergy Severe Rash Verified 12/12/19 16:53 MS Shellfish-derived Products Allergy Severe Shortness Verified 12/12/19 16:53 [Shellfish-derived Products] of Breath MS Sulfa Antibiotics Allergy Intermediate Itching Verified 12/12/19 16:53 [Sulfa Antibiotics] MS Tetracycline Allergy Mild Itching Verified 12/12/19 16:53 [Tetracycline] cephalexin [From Keflex] Allergy Rash And Verified 12/12/19 19:27 Itching clindamycin Allergy Diarrhea Verified 12/12/19 19:27 erythromycin base Allergy Rash And Verified 12/12/19 19:27 Itching MS Clindamycin [Clindamycin] Allergy Diarrhea Verified 12/12/19 16:53 Penicillins Allergy Rash Verified 12/12/19 19:27 shellfish derived Allergy Anaphylatic Verified 12/12/19 19:27 Shock Sulfa (Sulfonamide Allergy Rash And Verified 12/12/19 19:27 Antibiotics) Itching Tetracyclines Allergy Rash And Verified 12/12/19 19:27 Itching Home Medications: Home Medications Atenolol TAB* [Tenormin TAB* 50 MG] 50 mg PO DAILY 08/05/14 [History Confirmed 11/24/16] Atorvastatin* [Lipitor*] 10 mg PO BEDTIME 08/05/14 [History Confirmed 11/24/16] Levothyroxine TAB* [Synthroid 100 MCG TAB*] 100 mcg PO DAILY 08/05/14 [History Confirmed 11/24/16] Omeprazole CAP (NF) [Prilosec CAP* 20 MG] 20 mg PO DAILY 08/05/14 [History Confirmed 11/24/16] hydrOXYzine HCL TAB* [Atarax 10 MG TAB*] 10 mg PO BEDTIME 08/05/14 [History Confirmed 11/24/16] Loperamide CAP* [Imodium CAP*] 2 mg PO QPM 09/09/14 [History Confirmed 11/24/16] Triamterene/HCTZ 37.5-25 MG* [Dyazide CAP*] 1 cap PO FR 10/26/14 [History Confirmed 11/24/16] Cholecalciferol [Vitamin D3] 2,000 unit PO DAILY 11/24/16 [History Confirmed 05/07] DULoxetine DR CAP* [Cymbalta CAP*] 30 mg PO DAILY 11/24/16 [History Confirmed ] EPINEPHrine [Epipen 2-Omid] 0.3 mg IM ONCE PRN 11/24/16 [History Confirmed ] Hydrocodone/Acetaminophen [Hydrocodone/Acetaminophen 10-325 mg] 1 tab PO Q6H PRN 11/24/16 [History Confirmed 11/24/16] Ondansetron TAB* [Zofran Tab*] 4 mg PO Q6H PRN 11/24/16 [History Confirmed 11/24] Potassium Chlor TAB* [Klor Con ER TAB*] 20 meq PO DAILY 11/24/16 [History Confirmed 11/24/16] Aspirin TAB* [Aspirin 325 MG TAB*] 650 mg PO TID 11/28/16 [History Confirmed 05/07] Gentamicin 0.1% OINTMENT* 1 applic TOPICAL DAILY 30 Days #7 tube 07/08/19 [Rx] Triamcinolone 0.1% Oint (NF) [Triamcinolone Acetonide] 3 gm TOPICAL DAILY 30 Days #90 gm 09/09/19 [Rx] PMH/Surg Hx/FS Hx/Imm Hx Endocrine/Hematology History: Reports: Hx Thyroid Disease - Hypothyroidism Denies: Hx Diabetes Cardiovascular History: Reports: Hx Deep Vein Thrombosis - 1980 - unsure of which leg - clot., Other Cardiovascular Problems/Disorders - DVT Denies: Hx Congestive Heart Failure, Hx Hypertension Respiratory History: Reports: Hx Pneumonia Denies: Hx Asthma GI History: Reports: Hx Irritable Bowel, Other GI Disorders - gallbladder removal Denies: Hx Ulcer History: Denies: Hx Renal Disease Musculoskeletal History: Reports: Hx Arthritis - RA, Hx Rheumatoid Arthritis, Hx Back Problems - spinal stenosis, Hx Scoliosis Denies: Hx Osteoporosis Sensory History: Reports: Hx Contacts or Glasses Opthamlomology History: Reports: Hx Contacts or Glasses Neurological History: Reports: Hx Migraine, Other Neuro Impairments/Disorders - RHEUMATOID ARTHRITIS AND OSTEOPOROSIS FOR ABOUT 10 YEARS Denies: Hx Spinal Cord Injury - Cancer History Hx Chemotherapy: No Hx Radiation Therapy: No Hx Palliative Cancer Treatment: No - Surgical History Surgery Procedure, Year, and Place: Hysterectomy. Left shoulder. Cholecystectomy. Hx Anesthesia Reactions: No Infectious Disease History: No Infectious Disease History: Denies: Traveled Outside the [place] in Last 30 Days - Family History Known Family History: Negative: Cardiac Disease - Social History Alcohol Use: Rare Substance Use Type: Reports: None Smoking Status (MU): Never Smoked Tobacco Have You Smoked in the Last Year: No Review of Systems Positive: Chest Pain Positive: Other - Abd Distension All Other Systems Reviewed And Are Negative: Yes Physical Exam - Summary Physical Exam Summary: Appearance: Well-appearing, Well-nourished, lying in bed comfortably Skin: Warm, dry, no obvious rash Eyes: sclera anicteric, no conjunctival pallor ENT: mucous membranes moist, pharynx appears normal Neck: Supple, nontender Respiratory: Clear to auscultation, no signs of respiratory distress Cardiovascular: Normal S1, S2. No murmurs. Normal distal pulses in tibial and radial bilaterally. Abdomen: Soft, nontender, normal active bowel sounds present Musculoskeletal: Normal, Strength/ROM Intact. Patient dressings on lower extremities left intact. Appears to be chronic swelling and erythema in this area. Neurological: A&Ox3, awake and alert, mentation is normal, speech is fluent and appropriate Psychiatric: affect is normal, does not appear anxious or depressed Triage Information Reviewed: Yes Vital Signs On Initial Exam: Initial Vitals Temp Pulse Resp BP Pulse Ox 97.9 F 66 16 159/75 98 12/12/19 16:49 02/21/20 16:49 12/12/19 16:49 12/12/19 16:49 12/12/19 16:49 Vital Signs Reviewed: Yes Procedures - Sedation Patient Received Moderate/Deep Sedation with Procedure: No Diagnostics - Vital Signs Vital Signs Temp Pulse Resp BP Pulse Ox 12/12/19 16:49 97.9 F 66 16 159/75 98 - Laboratory Lab Results: Lab Results 12/12/19 12/12/19 12/12/19 Range/Units 17:08 17:08 17:08 WBC 20.7 H (3.5-10.8) 10^3/uL RBC 4.21 (3.70-4.87) 10^6 /uL Hgb 11.9 L (12.0-16.0) g/dL Hct 37 (35-47) % MCV 87 (80-97) fL MCH 28 (27-31) pg MCHC 33 (31-36) g/dL RDW 18 H (10-15) % Plt Count 328 (150-450) 10^3/uL MPV 6.9 L (7.4-10.4) fL Neut % (Auto) 93.8 % Lymph % (Auto) 3.7 % Charles % (Auto) 2.4 % Eos % (Auto) 0.0 % Baso % (Auto) 0.1 % Absolute Neuts (auto) 19.5 H (1.5-7.7) 10^3/ul Absolute Lymphs (auto) 0.8 L (1.0-4.8) 10^3/ul Absolute Monos (auto) 0.5 (0-0.8) 10^3/ul Absolute Eos (auto) 0.0 (0-0.6) 10^3/ul Absolute Basos (auto) 0.0 (0-0.2) 10^3/ul Absolute Nucleated RBC 0.0 10^3/ul Immature Gran % 5.0 (0-9) % Neutrophils % 91.0 % Band Neutrophils % 1.0 (0-8) % Lymphocytes % 2.0 % Monocytes % 2.0 % Metamyelocytes % 1.0 (0-2) % Myelocytes % 3.0 H (0-1) % Nucleated RBC % 0.0 Normal RBC Morphology Not Reportable Anisocytosis 1+ INR (Anticoag Therapy) 1.15 H (0.82-1.09) Sodium 135 (135-145) mmol/L Potassium 4.7 (3.5-5.0) mmol/L Chloride 103 (101-111) mmol/L Carbon Dioxide 24 (22-32) mmol/L Anion Gap 8 (2-11) mmol/L BUN 41 H (6-24) mg/dL Creatinine 1.23 H (0.51-0.95) mg/dL Est GFR ( Amer) 51.0 (>60) Est GFR (Non-Af Amer) 42.1 (>60) BUN/Creatinine Ratio 33.3 H (8-20) Glucose 161 H (70-100) mg/dL Calcium 9.7 (8.6-10.3) mg/dL Total Bilirubin 0.60 (0.2-1.0) mg/dL AST 18 (13-39) U/L ALT 39 (7-52) U/L Alkaline Phosphatase 88 (34-104) U/L Troponin I 0.02 (<0.03) ng/mL Total Protein 6.5 (6.4-8.9) g/dL Albumin 3.5 (3.2-5.2) g/dL Globulin 3.0 (2-4) g/dL Albumin/Globulin Ratio 1.2 (1-3) Result Diagrams: 12/12/19 17:08 12/12/19 17:08 Lab Statement: Any lab studies that have been ordered have been reviewed, and results considered in the medical decision making process. - Radiology CXR Radiology Interpretation Completed By: ED Physician Summary of Radiographic Findings: No acute process. Pending official radiologist report. - EKG 1651 Cardiac Rate: NL - 67 BPM EKG Rhythm: Sinus Rhythm Summary of EKG Findings: NSR at 67 BPM, P waves, QRS complex, and T waves are within normal limits, T waves and intervals are normal, no ischemic changes. This is a normal EKG. Chest Pain Course/Dx - Course Course Of Treatment: This patient is a 79 year old female presenting to [facility] with a chief complaint of chest pain since 7 days ago. Physical exam, CXR, and EKG were unremarkable for cardiac problems. She states her pain resolved one day ago. THe patient was not instructed to stop her medication due to the resolution of her symptoms. Plan for discharge was discussed with the patient and she understands and agrees. - Diagnoses Provider Diagnoses: Chest pain Discharge ED - Sign-Out/Discharge Documenting (check all that apply): Patient Departure - Discharge - Discharge Plan Condition: Good Disposition: HOME Patient Education Materials: Chest Pain (ED) Referrals: Dawood Hager MD [Primary Care Provider] - Additional Instructions: The tests we ran to check your heart and make sure the discomfort you had wasn' t coming from a heart condition were negative. 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 - Billing Disposition and Condition Condition: GOOD Disposition: Home - Attestation Statements Document Initiated by Alonso: Yes Documenting Hermanibe: Leonel Nair Provider For Whom Alonso is Documenting (Include Credential): Edwardo Fields MD Scribe Attestation: Leonel Burrell, hermanibed for Edwardo Fields MD on 12/13/19 at 0633. Scribe Documentation Reviewed: Yes Provider Attestation: The documentation as recorded by the Leonel morales accurately reflects the service I personally performed and the decisions made by me, Edwardo Fields MD Status of Scribe Document: Viewed
[2019-12-12 19:47] VITALS: BP 165/66
== END 2019-12-12 19:45 | disposition home or self-care (01) ==
LOC: ED 16:39
DX: R07.9 Chest pain, unspecified (principal); E03.9 Hypothyroidism, unspecified; Z86.718 Personal history of other venous thrombosis and embolism; Z79.82 Long term (current) use of aspirin; Z79.890 Hormone replacement therapy; Z79.899 Other long term (current) drug therapy; Z88.1 Allergy status to other antibiotic agents; Z88.0 Allergy status to penicillin; Z88.2 Allergy status to sulfonamides
CPT/HCPCS: 36415; 71045; 80053; 84484; 85025; 85610; 93005; 99282

== ENCOUNTER 2019-12-18 19:13 | Emergency (ER) | payer MEDICARE, OTHER ==
--- OUTSIDE RECORDS SUMMARY | 2019-12-18 19:36 | XMS REPORT | Continuity of Care Document ---
:1940 External Reference #:[id number] Author Name Tray Casper M.D. (transmitted by agent of provider Sabina Oakes) Address [address] [place] [id number] Care Team Providers Name Role Phone Dawood Hager MD - Family Care Team Information Application Architect Manager [phone] Medicine Problems Active Problems Provider Date Rheumatoid arthritis Doe Moreno M.D. Onset: 07/30/2012 Medications Mcfp (Current) Use Encounter Doe Moreno M.D. 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 daily by mouth Trazodone HCL take one 30tabs R30.0 Tray Casper, 12/01/2019 50mg tablet/capsule by M.DSherif Tablets mouth at bedtime. as needed for insomnia Dapsone take two 60tabs M05.20 Tray Casper, 10/16/2019 25mg Tablets capsule/tablet M.D. daily by mouth Stocking Applicator apply to help 2units Tray Casper, 08/01/2018 Regular edema/spider veins M.D. Misc and venous stasis with compression stockings Epipen 2-Omid take as directed 2unjusta Casper, 04/25/2018 for severe M.D. 0.3mg/0.3ML Solution allergic reaction Auto-Inject Caltrate 600+D take one 180tabs Tray Casper, 09/16/2017 capsule/tablet by Mayo [id number] mouth twice daily Tablets Atorvastatin Calcium Take 1 Tablet 90tabs Doe Moreno, 02/22/2015 Daily M.D. 10mg Tablets Triamterene/Hydrochlo Take 1 Capsule 90caps Doe Moreno, 09/09/2012 rothiazide Daily (Pt. is M.D. 37.5-25mg taking this only Capsules two times a week) Hydroxyzine HCL take 1 tablet at 120tabs Doe Moreno, 06/01/2011 10mg bedtime and as M.D. Tablets needed every day Triamcinolone Apply To Affected Unknown Acetonide Area(S) Two Times 0.1% Cream Daily For 7 To 10 Days, Then Apply as Needed Gentamicin Sulfate Apply Topicallly Unknown 0.1% Every Day Ointment Loperamide HCL Unknown 2mg Capsules Tums 1 or 2 chewtabs by Unknown 500mg Chewtabs mouth as needed, indigestion Multivitamin Adults once a day Unknown 50+ Adlt 50+ Tablets Levothyroxine Sodium once a day Unknown 100mcg Solution Rec Atenolol take 2 tablet Unknown 50mg Tablets daily Potassium Chloride ER 1 po twice a week 30tabs Unknown 20Meq Tablets ER Aspirin 1 po qd (pt is Unknown [address] taking three aspirins a day) History Medications Furosemide one tab once 7tabs I89.0 Sean Woods 08/18/2019 - 40mg Tablets daily Mayo Monahan 09/15/2019 Furosemide Take 1 tablet 2tabs I87.313 Cecilia Layne 08/15/2019 - 40mg Tablets by mouth daily DIAN Noriega 08/18/2019 Ciprofloxacin HCL Take 1 tablet 28tabs L03.115 Cecilia Layne 2018 - 500mg by mouth twice DIAN Noriega 08/14/2019 Tablets a day for 14 days Medications Administered in Office Medication SIG Qnty Indications Ordering Provider Date SHANKAR Moreno M.D. 03/11/2012 Injection Immunizations CPT Code Status Date Vaccine Reaction Lot # [id number] Given 10/16/2019 Fluad (65+) or older flu [id number] vacc 20732 Given 08/01/2018 Fluzone High Dose [id number] Given 08/23/2017 Influenza Virus Vaccine, no immediate reaction [id number] Quadrivalent, Split, noted Preservative Free 60135 Given 07/18/2016 Influenza Virus Vaccine, [id number] Quadrivalent, Split, Preservative Free 85151 Given 09/03/2015 Influenza Virus Vaccine, No reaction noted. [id number] Quadrivalent, Split, Preservative Free [id number] Given 07/30/2012 Fluzone Vaccine [id number] Vital Signs Date Vital Result Comment 12/01/2019 4:06pm Height 61 inches 5'1" Weight 206.00 lb Heart Rate 56 /min BP Systolic Sitting 132 mmHg BP Diastolic Sitting 82 mmHg Body Temperature 97.8 F Pain Level 10 O2 % BldC Oximetry 98 % BMI (Body Mass Index) 38.9 kg/m2 10/16/2019 2:42pm Height 61 inches 5'1" Weight 212.00 lb Heart Rate 78 /min BP Systolic 132 mmHg BP Diastolic 80 mmHg Body Temperature 98.1 F Pain Level 5 O2 % BldC Oximetry 98 % BMI (Body Mass Index) 40.1 kg/m2 Results Test Acquired Date Facility Test Result H/L Range Note Laboratory test 11/25/2019 [facility] C Reactive 31.63 mg/L High <8.[address] [place] [address] [phone] Erythrocyte Sed Rate 45 mm/Hr High 0-29 CBC Auto 11/25/2019 [facility] White Blood 16.7 10^3/uL High 3.5-10.[address] [place] [address] [phone] Red Blood Count 4.18 10^6/uL Normal 3.70-4.87 Hemoglobin 11.8 g/dL Low 12.0-16.0 Hematocrit 37 % Normal 35-47 Mean Corpuscular Volume 88 fL Normal 80-97 Mean Corpuscular Hemoglobin 28 pg Normal 27-31 Mean Corpuscular HGB Conc 32 g/dL Normal 31-36 Red Cell Distribution Width 18 % High 10-15 Platelet Count 352 10^3/uL Normal 150-450 Mean Platelet Volume 7.0 fL Low 7.4-10.4 Abs Neutrophils 15.1 10^3/uL High 1.5-7.7 Abs Lymphocytes 0.9 10^3/uL Low 1.0-4.8 Abs Monocytes 0.7 10^3/uL Normal 0-0.8 Abs Eosinophils 0.0 10^3/uL Normal 0-0.6 Abs Basophils 0.1 10^3/uL Normal 0-0.2 Abs Nucleated RBC 0.0 10^3/uL Granulocyte % 90.3 % Lymphocyte % 5.3 % Monocyte % 4.0 % Eosinophil % 0.0 % Basophil % 0.4 % Nucleated Red Blood Cells % 0.1 Laboratory test 11/25/2019 [facility] Magnesium 2.0 Normal 1.9 -2.7 finding 101 mg/[place] [address] [phone] Manual 11/25/2019 [facility] Immature 6.0 % Normal 0-9 Differential [address] [place] [address] [phone] Neutrophil % 84.0 % Band % 5.0 % Normal 0-8 Lymphocytes % 5.0 % Monocytes % 5.0 % Myelocytes % 1.0 % Normal 0-1 RBC Morphology Normal Normal Laboratory test 11/25/2019 [facility] Rheumatoid 19 IU/mL High <15 finding [address] [place] [address] [phone] Iron & Iron 11/25/2019 [facility] Total Iron 319 Normal 250- 450 Binding 101 Binding g/[place] [address] Capacity [phone] Transferrin 228 mg/dL Normal 203-362 Iron 58 g/dL Normal 50-212 Unsaturated Iron Binding < 304 g/dL % Iron Saturation 18 % Normal 15-55 Laboratory test 11/25/2019 [facility] Ferritin 84.6 ng/mL Normal 11-307 finding 101 [place] [address] [phone] Folic Acid (Folate) > 20.00 ng/mL >3.99 Vitamin B12 549 pg/mL Normal 180-914 1 G6PD Quantitative RBC 12.6 U/gHb 8.8 - 13.4 2 Cyclic Citrullinated Pep Igg <15.6 U 3 Anca AB Ser If 11/25/2019 [facility] C-Anca Negative Negative [address] [place] [address] [phone] P-Anca Positive Abnormal Negative 4 Comp Metabolic 08/15/2019 [facility] Sodium 138 mmol/L Normal 135-145 Panel [address] [place] [address] [phone] Potassium 4.7 mmol/L Normal 3.5-5.0 Chloride 104 mmol/L Normal 101-111 Co2 Carbon Dioxide 31 mmol/L Normal 22-32 Anion Gap 3 mmol/L Normal 2-11 Glucose 93 mg/dL Normal 70-100 Blood Urea Nitrogen 25 mg/dL High 6-24 Creatinine 0.74 mg/dL Normal 0.51-0.95 BUN/Creatinine Ratio 33.8 High 8-20 Calcium 9.2 mg/dL Normal 8.6-10.3 Total Protein 6.7 g/dL Normal 6.4-8.9 Albumin 3.9 g/dL Normal 3.2-5.2 Globulin 2.8 g/dL Normal 2-4 Albumin/Globulin Ratio 1.4 Normal 1-3 Total Bilirubin 0.40 mg/dL Normal 0.2-1.0 Alkaline Phosphatase 77 U/L Normal 34-104 Alt 23 U/L Normal 7-52 Ast 19 U/L Normal 13-39 Egfr Non- 75.7 >60 Egfr 91.6 >60 5 CBC Auto 08/15/2019 [facility] White Blood 13.5 10^3/uL High 3.5-10.[address] [place] [address] [phone] Red Blood Count 4.48 10^6/uL Normal 3.70-4.87 Hemoglobin 12.6 g/dL Normal 12.0-16.0 Hematocrit 39 % Normal 35-47 Mean Corpuscular Volume 86 fL Normal 80-97 Mean Corpuscular Hemoglobin 28 pg Normal 27-31 Mean Corpuscular HGB Conc 33 g/dL Normal 31-36 Red Cell Distribution Width 18 % High 10-15 Platelet Count 339 10^3/uL Normal 150-450 Mean Platelet Volume 6.5 fL Low 7.4-10.4 Abs Neutrophils 11.5 10^3/uL High 1.5-7.7 Abs Lymphocytes 1.1 10^3/uL Normal 1.0-4.8 Abs Monocytes 0.8 10^3/uL Normal 0-0.8 Abs Eosinophils 0.0 10^3/uL Normal 0-0.6 Abs Basophils 0.0 10^3/uL Normal 0-0.2 Abs Nucleated RBC 0.0 10^3/uL Granulocyte % 85.6 % Lymphocyte % 8.3 % Monocyte % 6.0 % Eosinophil % 0.1 % Basophil % 0.0 % Nucleated Red Blood Cells % 0.1 Laboratory test 08/15/2019 [facility] C Reactive 11.56 mg/L High <8.[address] Protein [place], [place] [id number] [phone] 1 Normal Range 180 to 914 Indeterminate Range 145 to 180 Deficient Range <145 2 ADDITIONAL INFORMATION This test was developed and its performance characteristics determined by [facility] in a manner consistent with CLIA requirements. This test has not been cleared or approved by the U.S. Food and Drug Administration. Test Performed by: [facility] [place] [address] Seo Coordinator: Jorge A Flores M.D. Ph.D.; CLIA# [id number] 3 REFERENCE VALUE <20.0 (Negative) Test Performed by: [facility] [place] [address] Seo Coordinator: Jorge A Flores M.D. 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 Suggest further testing for anti-myeloperoxidase (anti-MPO) antibodies, if clinically indicated. ADDITIONAL INFORMATION This test was developed and its performance characteristics determined by [facility] in a manner consistent with CLIA requirements. This test has not been cleared or approved by the U.S. Food and Drug Administration. Test Performed by: [place] [address] Seo Coordinator: Jorge A Flores M.D. Ph.D.; CLIA# [id number] 5 Because ethnic data is not always readily available, this report includes an eGFR for both -Americans and non- Americans. The National Kidney Disease Education Program (NKDEP) does not endorse the use of the MDRD equation for patients that are not between the ages of 18 and 70, are , have extremes of body size, muscle mass, or nutritional status, or are non- or non-. According to the National Kidney Foundation, irrespective of diagnosis, the stage of the disease is based on the level of kidney function: Stage Description GFR(mL/min/1.73 m(2)) 1 Kidney damage with normal or decreased GFR 90 2 Kidney damage with mild decrease in GFR 60-89 3 Moderate decrease in GFR 30-59 4 Severe decrease in GFR 15-29 5 Kidney failure <15 (or dialysis) Procedures Date Code Description Status 11/25/2019 75378 Punch Biopsy Of Skin Completed 11/06/2019 12934 Removal Devitalized Tissue Wound Greater Than [address] 11/06/2019 79885 Removal Devitalized Tissue Wound Greater Than [address] 11/06/2019 11356 Removal Devitalization Tissue Wound Less Than Equal 20 Completed [facility] 08/29/2019 50301 Punch Biopsy Of Skin Completed 08/05/2019 58894 Removal Devitalized Tissue Wound Greater Than [address] 08/05/2019 74171 Removal Devitalization Tissue Wound Less Than Equal [address] 07/29/2019 01920 Removal Devitalized Tissue Wound Greater Than [address] 07/29/2019 45139 Removal Devitalization Tissue Wound Less Than Equal [address] 07/15/2019 39464 Removal Devitalization Tissue Wound Less Than Equal [address] 07/15/2019 73718 Removal Devitalized Tissue Wound Greater Than [address] 07/15/2019 91332 Removal Devitalized Tissue Wound Greater Than [address] 07/08/2019 61407 Removal Devitalized Tissue Wound Greater Than [address] 07/08/2019 75385 Removal Devitalization Tissue Wound Less Than Equal [address] 07/01/2019 66081 Removal Devitalized Tissue Wound Greater Than [address] 07/01/2019 70128 Removal Devitalized Tissue Wound Greater Than [address] 07/01/2019 35678 Removal Devitalized Tissue Wound Greater Than [address] 07/01/2019 65176 Removal Devitalization Tissue Wound Less Than Equal 20 Completed [facility] 09/10/2017 [id number] Bone Mineral Density Test Completed 11/28/2016 [id number] Colonoscopy Completed 09/07/2015 [id number] Bone Mineral Density Test Completed 02/14/2013 [id number] Mammogram Completed 08/08/2011 [id number] Bone Mineral Density Test Completed Medical Devices Description No Information Available Encounters Type Date Location Provider Dx Diagnosis Office Visit 11/25/2019 Lorena Cee MD L88 Pyoderma gangrenosum 12:45p Z79.899 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 Heather Cee L13.1 Subcorneal pustular dermatitis L65.0 Telogen effluvium Office Visit 10/16/2019 2:20p Rheumatology Tray I89.0 Lymphedema, not Services Of Lorena Casper M.D. 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 [place] I89.0 Lymphedema, not Infectious Mayo Monahan elsewhere Diseases classified L30.9 Dermatitis, unspecified I87.313 Chronic venous hypertension w ulcer of bilateral low extrm Office Visit 09/10/2019 2:30p [facility] Heather Cee L13.1 Subcorneal pustular dermatitis L65.0 Telogen effluvium Z48.02 Encounter for removal of sutures Office Visit 09/09/2019 3:00p Wound Care Dewayne Arreola I87.313 Chronic venous [facility] Mayo Nelson hypertension w ulcer of bilateral low extrm I89.0 Lymphedema, not elsewhere classified L97.819 Non-pressure chronic ulcer oth prt r low leg w unsp severity L97.829 Non-pressure chronic ulcer oth prt l low leg w unsp severity Office Visit 08/29/2019 1:30p [facility] Heather Cee L30.Kirsty Mireles, MD unspecified Office Visit 08/18/2019 3:20p 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 R21 Rash and other nonspecific skin eruption L97.528 Non-prs chronic ulcer oth prt left foot with oth severity Office Visit 08/15/2019 [facility] Minmigueljesusmyron I87.313 Chronic venous 3:00p For Infectious Noriega, DIRECTOR VIDEO hypertension w Diseases ulcer of bilateral low extrm R21 Rash and other nonspecific skin eruption I89.0 Lymphedema, not elsewhere classified 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 Office Visit 07/24/2019 [facility] Minmigueljesusmyron L03.115 Cellulitis of 11:30a For Infectious Noriega, DIRECTOR VIDEO right lower limb Diseases I87.313 Chronic venous hypertension w ulcer of bilateral low extrm I89.0 Lymphedema, not elsewhere classified Office Visit 07/17/2019 [facility] Xi L03.115 Cellulitis of 10:30a For Infectious Noriega, DIRECTOR VIDEO right lower limb Diseases I87.313 Chronic venous hypertension w ulcer of bilateral low extrm I89.0 Lymphedema, not elsewhere classified Assessments Date Code Description Provider 12/01/2019 L88 Pyoderma gangrenosum Tray Casper M.D. 12/01/2019 Z79.899 Other senior care (current) drug Tray Casper M.D. therapy 12/01/2019 I87.313 Chronic venous hypertension Tray Casper M.D. (idiopathic) with ulcer of bilateral lower extremity 12/01/2019 I89.0 Lymphedema, not elsewhere classified Tray Casper M.D. 12/01/2019 R30.0 Dysuria Tray Casper M.D. 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 (idiopathic) with ulcer of bilateral lower extremity 11/25/2019 I89.0 Lymphedema, not elsewhere classified Dewayne Nelson M.D. 11/18/2019 L13.1 Subcorneal pustular dermatitis Hailey Cee MD 11/18/2019 L65.0 Telogen effluvium Hailey Cee MD 11/06/2019 I87.313 Chronic venous hypertension Dewayne Nelson M.D. (idiopathic) with ulcer of bilateral lower extremity 11/06/2019 I89.0 Lymphedema, not elsewhere classified Dewayne Nelson M.D. 11/06/2019 L97.919 Non-pressure chronic ulcer of Dewayne Nelson M.D. unspecified part of right lower leg with unspecified severity 11/06/2019 L97.929 Non-pressure chronic ulcer of Dewayne Nelson M.D. unspecified part of left lower leg with unspecified severity 11/06/2019 L97.529 Non-pressure chronic ulcer of other Dewayne Nelson M.D. part of left foot with unspecified severity 10/16/2019 I89.0 Lymphedema, not elsewhere classified Tray Casper M.D. 10/16/2019 L30.9 Dermatitis, unspecified Tray Casper M.D. 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 therapy 10/16/2019 D64.9 Anemia, unspecified Tray Casper M.D. 10/16/2019 Z23 Encounter for immunization Tray Casper M.D. 09/15/2019 I89.0 Lymphedema, not elsewhere classified Sean Monahan M.D. 09/15/2019 L30.9 Dermatitis, unspecified Sean Monahan M.D. 09/15/2019 I87.313 Chronic venous hypertension Sean Monahan M.D. (idiopathic) with ulcer of bilateral lower extremity 09/10/2019 L13.1 Subcorneal pustular dermatitis Hailey Cee MD 09/10/2019 L65.0 Telogen effluvium Hailey Cee MD 09/10/2019 Z48.02 Encounter for removal of sutures Hailey Cee MD 09/09/2019 I87.313 Chronic venous hypertension Dewayne Nelson M.D. (idiopathic) with ulcer of bilateral lower extremity 09/09/2019 I89.0 Lymphedema, not elsewhere classified Dewayne eNlson M.D. 09/09/2019 L97.819 Non-pressure chronic ulcer of other Dewayne Nelson M.D. part of right lower leg with unspecified severity 09/09/2019 L97.829 Non-pressure chronic ulcer of other Dewayne Nelson M.D. part of left lower leg with unspecified severity 08/29/2019 L30.9 Dermatitis, unspecified Hailey Cee MD 08/18/2019 I89.0 Lymphedema, not elsewhere classified Sean Monahan M.D. 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 arthritis of unspecifi 08/18/2019 R21 Rash and other nonspecific skin Sean Monahan M.D. eruption 08/18/2019 L97.528 Non-pressure chronic ulcer of other Sean Monahan M.D. 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 part of right lower leg with unspecified severity 08/05/2019 I87.311 Chronic venous hypertension Dewayne Nelson M.D. (idiopathic) with ulcer of right 08/05/2019 I89.0 Lymphedema, not elsewhere classified Dewayne Nelson M.D. 07/29/2019 L97.529 Non-pressure chronic ulcer of other Dewayne Nelson M.D. part of left foot with unspecified severity 07/29/2019 L97.829 Non-pressure chronic ulcer of other Dewayne Nelson M.D. part of left lower leg with unspecified severity 07/29/2019 L97.819 Non-pressure chronic ulcer of other Dewayne Nelson M.D. part of right lower leg with unspecified severity 07/29/2019 I87.313 Chronic venous hypertension Dewayne Nelson M.D. (idiopathic) with ulcer of bilateral lower extremity 07/29/2019 I89.0 Lymphedema, not elsewhere classified Dewayne Nelson M.D. 07/24/2019 L03.115 Cellulitis of right lower limb Cecilia Noriega, DIAN 07/24/2019 I87.313 Chronic venous hypertension Cecilia Noriega NP (idiopathic) with ulcer of bilateral lower extremity 07/24/2019 I89.0 Lymphedema, not elsewhere classified Cecilia Noriega, DIAN 07/17/2019 L03.115 Cellulitis of right lower limb Cecilia Noriega, DIAN 07/17/2019 I87.313 Chronic venous hypertension Cecilia Noriega NP (idiopathic) with ulcer of bilateral lower extremity 07/17/2019 I89.0 Lymphedema, not elsewhere classified Cecilia Noriega, DIAN 07/15/2019 I87.313 Chronic venous hypertension Dewayne Nelson M.D. (idiopathic) with ulcer of bilateral lower extremity 07/15/2019 I89.0 Lymphedema, not elsewhere classified Dewayne Nelson M.D. 07/08/2019 I87.313 Chronic venous hypertension Dewayne Nelson M.D. (idiopathic) with ulcer of bilateral lower extremity 07/08/2019 I89.0 Lymphedema, not elsewhere classified Dewayne Nelson M.D. 07/01/2019 I87.313 Chronic venous hypertension Dewayne Nelson M.D. (idiopathic) with ulcer of bilateral lower extremity 07/01/2019 I89.0 Lymphedema, not elsewhere classified Dewayne Nelson M.D. Plan of Treatment 12/01/2019 - Tray Casper M.D.L88 Pyoderma [id number] Other senior care (current) drug nhchphwG01.313 Chronic venous hypertension (idiopathic) with ulcer of bilateral lower pksizlkxwF82.0 Lymphedema, not elsewhere hqoiuwrizoG23.0 DysuriaNew Medication:Trazodone HCL 50 mg - take one tablet/ capsule by mouth at bedtime. as needed for insomnia Functional Status Description No Information Available Mental Status Description No Information Available Referrals Refer to Reason for Referral Status Appt Date Hailey Cee MD 79 year old woman with rheumatoid Received Complete vasculitis and non blanching rash on thighs and forearms [facility] [place] [address] [phone]
[2019-12-18] MEDS ORDERED: Ondansetron INJ* 2 MG/ML VIAL IV ONE (22:36)
[2019-12-18] MEDS ORDERED: NS 0.9% 1000 ML** 1,000 ML IV ONE (22:36)
--- NOTE | 2019-12-18 22:36 | ED ---
Nausea/Vomiting/Diarrhea HPI - HPI Summary HPI Summary: Patient complains of epigastric pain, nausea and vomiting 2 weeks. Seen here for same symptoms 1 week ago with subsequent cardiac rule out. History of GERD. Also complains of right hip pain 2 weeks. History of arthritis. Appointment with orthopedics Dr. Roberts pending. - History of Current Complaint Chief Complaint: EDAbdPain Stated Complaint: POS ULCER,HIP PAIN,LEG PAIN PER PT Time Seen by Provider: 12/18/19 22:34 Hx Obtained From: Patient Onset/Duration: Gradual Onset, Lasting Weeks Timing: Intermittent Episodes Lasting: Severity Initially: Severe Severity Currently: Severe Pain Intensity: 10 Pain Scale Used: 0-10 Numeric Location: Discrete At: LUQ, Epigastric Character: Burning Aggravating Factor(s): Food Alleviating Factor(s): Nothing Nausea/Vomiting Presence: Nauseated, Vomiting Vomiting Characteristics: Nonbilious Diarrhea Presence: No - Allergies/Home Medications Allergies/Adverse Reactions: Allergies Allergy/AdvReac Type Severity Reaction Status Date / Time MS Cephalexin [From Keflex] Allergy Severe Rash And Verified 12/12/19 16:53 Itching MS Erythromycin Allergy Severe Rash And Verified 12/18/19 23:51 [Erythromycin] Itching MS Penicillins [Penicillins] Allergy Severe Rash Verified 12/18/19 23:51 MS Shellfish-derived Products Allergy Severe Shortness Verified 12/18/19 23:51 [Shellfish-derived Products] of Breath ciprofloxacin [From Cipro] Allergy Intermediate Rash Verified 12/18/19 23:52 MS Sulfa Antibiotics Allergy Intermediate Itching Verified 12/18/19 23:51 [Sulfa Antibiotics] MS Tetracycline Allergy Mild Itching Verified 12/18/19 23:51 [Tetracycline] cephalexin [From Keflex] Allergy Rash And Verified 12/18/19 23:51 Itching clindamycin Allergy Diarrhea Verified 12/18/19 23:51 erythromycin base Allergy Rash And Verified 12/18/19 23:51 Itching MS Clindamycin [Clindamycin] Allergy Diarrhea Verified 12/18/19 23:51 Penicillins Allergy Rash Verified 12/18/19 23:51 shellfish derived Allergy Anaphylatic Verified 12/18/19 23:51 Shock Sulfa (Sulfonamide Allergy Rash And Verified 12/18/19 23:51 Antibiotics) Itching Tetracyclines Allergy Rash And Verified 12/18/19 23:51 Itching Home Medications: Home Medications Atenolol TAB* [Tenormin TAB* 50 MG] 50 mg PO DAILY 08/05/14 [History Confirmed 12/18/19] Atorvastatin* [Lipitor*] 10 mg PO BEDTIME 08/05/14 [History Confirmed 12/18/19] Levothyroxine TAB* [Synthroid 100 MCG TAB*] 100 mcg PO DAILY 08/05/14 [History Confirmed 12/18/19] Omeprazole CAP (NF) [Prilosec CAP* 20 MG] 20 mg PO DAILY 08/05/14 [History Confirmed 12/18/19] hydrOXYzine HCL TAB* [Atarax 10 MG TAB*] 10 mg PO BEDTIME 08/05/14 [History Confirmed 12/18/19] Loperamide CAP* [Imodium CAP*] 2 mg PO QPM 09/09/14 [History Confirmed 12/18/19] Triamterene/HCTZ 37.5-25 MG* [Dyazide CAP*] 1 cap PO FR 10/26/14 [History Confirmed 12/18/19] Cholecalciferol [Vitamin D3] 2,000 unit PO DAILY 11/24/16 [History Confirmed ] EPINEPHrine [Epipen 2-Omid] 0.3 mg IM ONCE PRN 11/24/16 [History Confirmed ] Ondansetron TAB* [Zofran Tab*] 4 mg PO Q6H PRN 11/24/16 [History Confirmed 12/18] Potassium Chlor TAB* [Klor Con ER TAB*] 20 meq PO DAILY 11/24/16 [History Confirmed 12/18/19] Aspirin TAB* [Aspirin 325 MG TAB*] 650 mg PO TID 11/28/16 [History Confirmed ] Triamcinolone 0.1% Oint (NF) [Triamcinolone Acetonide] 3 gm TOPICAL DAILY 30 Days #90 gm 09/09/19 [Rx Confirmed 12/18/19] Lidocaine 2% VISCOUS* [Xylocaine 2% Viscous*] 15 ml .SEE ORDER Q6H PRN #1 btl [Rx] Omeprazole 20 mg PO DAILY 30 Days #30 capsule. 12/19/19 [Rx] Ondansetron ODT TAB* [Zofran 4 MG Odt TAB*] 4 mg PO Q8H PRN 4 Days #14 tab.odt 12/19/19 [Rx] PMH/Surg Hx/FS Hx/Imm Hx Endocrine/Hematology History: Reports: Hx Thyroid Disease - Hypothyroidism Denies: Hx Diabetes Cardiovascular History: Reports: Hx Deep Vein Thrombosis - 1980 - unsure of which leg - clot., Other Cardiovascular Problems/Disorders - DVT Denies: Hx Congestive Heart Failure, Hx Hypertension Respiratory History: Reports: Hx Pneumonia Denies: Hx Asthma GI History: Reports: Hx Irritable Bowel, Other GI Disorders - gallbladder removal Denies: Hx Ulcer History: Denies: Hx Renal Disease Musculoskeletal History: Reports: Hx Arthritis - RA, Hx Rheumatoid Arthritis, Hx Back Problems - spinal stenosis, Hx Scoliosis Denies: Hx Osteoporosis Sensory History: Reports: Hx Contacts or Glasses Opthamlomology History: Reports: Hx Contacts or Glasses Neurological History: Reports: Hx Migraine, Other Neuro Impairments/Disorders - RHEUMATOID ARTHRITIS AND OSTEOPOROSIS FOR ABOUT 10 YEARS Denies: Hx Spinal Cord Injury - Cancer History Hx Chemotherapy: No Hx Radiation Therapy: No Hx Palliative Cancer Treatment: No - Surgical History Surgery Procedure, Year, and Place: Hysterectomy. Left shoulder. Cholecystectomy. Hx Anesthesia Reactions: No Infectious Disease History: No Infectious Disease History: Denies: Traveled Outside the [place] in Last 30 Days - Family History Known Family History: Negative: Cardiac Disease - Social History Alcohol Use: Rare Substance Use Type: Reports: None Smoking Status (MU): Never Smoked Tobacco Have You Smoked in the Last Year: No Review of Systems Constitutional: Negative Eyes: Negative ENT: Negative Cardiovascular: Negative Respiratory: Negative Positive: Abdominal Pain, Vomiting, Nausea Genitourinary: Negative Musculoskeletal: Negative Skin: Negative Neurological/Mental Status: Negative Psychological: Normal All Other Systems Reviewed And Are Negative: Yes Physical Exam - Summary Physical Exam Summary: Tender in epigastrium and left upper quadrant. Triage Information Reviewed: Yes Vital Signs On Initial Exam: Initial Vitals Temp Pulse Resp BP Pulse Ox 97.4 F 61 16 121/81 96 12/18/19 19:19 12/18/19 19:19 12/18/19 19:19 12/18/19 19:19 12/18/19 19:19 Vital Signs Reviewed: Yes Appearance: Positive: Well-Appearing Skin: Positive: Warm Head/Face: Positive: Normal Head/Face Inspection Neck: Positive: Supple Respiratory/Lung Sounds: Positive: Clear to Auscultation Cardiovascular: Positive: Normal Abdomen Description: Positive: Other: Musculoskeletal: Positive: Normal Neurological: Positive: Normal Psychiatric: Positive: Normal AVPU Assessment: Alert - [place] Coma Scale Best Eye Response: 4 - Spontaneous Best Motor Response: 6 - Obeys Commands Best Verbal Response: 5 - Oriented Coma Scale Total: 15 Procedures - Sedation Patient Received Moderate/Deep Sedation with Procedure: No Diagnostics - Vital Signs Vital Signs Temp Pulse Resp BP Pulse Ox 12/18/19 19:19 97.4 F 61 16 121/81 96 - Laboratory Result Diagrams: 12/18/19 22:54 12/18/19 22:54 Lab Statement: Any lab studies that have been ordered have been reviewed, and results considered in the medical decision making process. Naus/Vom/Diarrhea Course/Dx - Course Course Of Treatment: Patient complains of epigastric pain, nausea and vomiting 2 weeks. Seen here for same symptoms 1 week ago with subsequent cardiac rule out. History of GERD. Also complains of right hip pain 2 weeks. History of arthritis. Appointment with orthopedics Dr. Roberts pending. Denies trauma. Vital signs within normal limits. WBC 22.1. Patient currently taking prednisone for arthritis. Creatinine 1.18 which is new for patient. Likely due to dehydration. BUN/creatinine ratio is 40. CRP 80. Labs otherwise unremarkable. Patient's symptoms completely resolved with Zofran and GI cocktail. Advised to follow-up with GI. - Differential Dx/Diagnosis Provider Diagnosis: Gastritis, Dehydration, Hip pain, right Condition At Discharge: Stable Discharge ED - Sign-Out/Discharge Documenting (check all that apply): Patient Departure - Discharge Plan Condition: Stable Disposition: HOME Prescriptions: Lidocaine 2% VISCOUS* [Xylocaine 2% Viscous*] 15 ml .SEE ORDER Q6H PRN #1 btl PRN Reason: Pain - Moderate Omeprazole 20 mg PO DAILY 30 Days #30 capsule. Ondansetron ODT TAB* [Zofran 4 MG Odt TAB*] 4 mg PO Q8H PRN 4 Days #14 tab.odt PRN Reason: Nausea Patient Education Materials: Gastritis (ED) Referrals: Dawood Hager MD [Primary Care Provider] - Karri Mancuso MD [Medical Doctor] - Additional Instructions: Take omeprazole daily. Use lidocaine with [id number] Maalox every 6 hours if needed for breakthrough stomach pain. Use Zofran as directed for nausea if needed. Gentle diet. Follow-up with GI Dr. Mancuso for further evaluation. Return to the ED for any new or worsening symptoms. - Billing Disposition and Condition Condition: STABLE Disposition: Home
[2019-12-18] MEDS ORDERED: Lidocaine 2% VISCOUS* 15 ML UDC PO ONE (22:45)
[2019-12-18] MEDS ORDERED: Al Hydrox/Mg Hydrox/Simet LIQ* 30 ML UDC PO ONE (22:45)
[2019-12-18 23:03] LABS: Hematocrit 38 % (35-47); Hemoglobin 12.4 g/dL (12.0-16.0); Mean Corpuscular HGB Conc 33 g/dL (31-36); Mean Corpuscular Hemoglobin 28 pg (27-31); Mean Corpuscular Volume 87 fL (80-97); Mean Platelet Volume 6.9 fL (7.4-10.4); Platelet Count 310 10^3/uL (150-450); Red Blood Count 4.38 10^6 /uL (3.70-4.87); Red Cell Distribution Width 18 % (10-15); White Blood Count 22.1 10^3/uL (3.5-10.8)
[2019-12-18 23:20] LABS: Albumin 3.6 g/dL (3.2-5.2); Albumin/Globulin Ratio 1.1 (1-3); BUN/Creatinine Ratio 40.7 (8-20); C Reactive Protein 84.72 mg/L (<8.01); Calcium 9.7 mg/dL (8.6-10.3); EGFR African American 53.5 (>60); EGFR Non-African American 44.2 (>60); Globulin 3.3 g/dL (2-4); Potassium 4.5 mmol/L (3.5-5.0); Total Bilirubin 0.7 mg/dL (0.2-1.0); Total Protein 6.9 g/dL (6.4-8.9)
[2019-12-18 23:29] LABS: ABS Lymphocytes 0.9 10^3/ul (1.0-4.8); ABS Monocytes 0.6 10^3/ul (0-0.8); ABS Neutrophils 20.5 10^3/ul (1.5-7.7); Lymphocyte % 4.1 %; Polychromasia 1+
[2019-12-19] MEDS ORDERED: NS 0.9% 1000 ML** 1,000 ML IV ONE
[2019-12-19] MEDS ORDERED: oxyCODONE TAB* 5 MG TAB PO ONE (00:05)
[2019-12-19] MEDS ORDERED: Pantoprazole IV* 40 MG IV ONE (00:07)
[2019-12-19 02:00] VITALS: BP 146/48
== END 2019-12-19 01:58 | disposition home or self-care (01) ==
LOC: ED 19:13
DX: K29.70 Gastritis, unspecified, without bleeding (principal); E86.0 Dehydration; M25.551 Pain in right hip; R10.13 Epigastric pain; R11.2 Nausea with vomiting, unspecified; E03.9 Hypothyroidism, unspecified; Z86.718 Personal history of other venous thrombosis and embolism; Z79.890 Hormone replacement therapy; Z79.899 Other long term (current) drug therapy; Z88.2 Allergy status to sulfonamides; Z88.0 Allergy status to penicillin
CPT/HCPCS: 36415; 80053; 83605; 83690; 85025; 86140; 96361; 96374; 96375; 99284; A9270-GY; J2405

== ENCOUNTER 2019-12-22 08:58 | Inpatient (IN) | payer MEDICARE, OTHER ==
[2019-12-22 09:45] LABS: Hematocrit 33 % (35-47); Hemoglobin 10.9 g/dL (12.0-16.0); Mean Corpuscular HGB Conc 33 g/dL (31-36); Mean Corpuscular Hemoglobin 28 pg (27-31); Mean Corpuscular Volume 87 fL (80-97); Mean Platelet Volume 6.8 fL (7.4-10.4); Platelet Count 332 10^3/uL (150-450); Red Blood Count 3.84 10^6 /uL (3.70-4.87); Red Cell Distribution Width 19 % (10-15)
[2019-12-22 10:08] LABS: ALT 27 U/L (7-52); AST 20 U/L (13-39); Albumin 3.2 g/dL (3.2-5.2); Alkaline Phosphatase 94 U/L (34-104); Anion Gap 9 mmol/L (2-11); Blood Urea Nitrogen 60 mg/dL (6-24); CO2 Carbon Dioxide 20 mmol/L (22-32); Chloride 105 mmol/L (101-111); EGFR African American 40.5 (>60); EGFR Non-African American 33.5 (>60); Globulin 3.1 g/dL (2-4); Glucose 124 mg/dL (70-100); Magnesium 2.1 mg/dL (1.9-2.7); Potassium 4.9 mmol/L (3.5-5.0); Sodium 134 mmol/L (135-145); Total Protein 6.3 g/dL (6.4-8.9)
--- NOTE | 2019-12-22 10:32 | ED ---
Complex/Multi-Sys Presentation - HPI Summary HPI Summary: This patient is a 79 y/o female presenting to [facility] via EMS for abd pain, nausea and vomiting x2 weeks. Patient reports she has had decreased PO intake secondary to vomiting. She describes upper abdominal pain. Patient states today she felt weak and "lost the ability to walk." Additionally notes dizziness, described as head spinning, and shortness of breath. Denies fever or cough. Patient reports a little bit of burning with urination. She states she has hx of vasculitis and has bilateral leg pain that weep a lot. She has been placing silver sulfadiazine powder on legs with mild relief and has also been taking Dapsone. Patient sees Dr. Nelson, at the wound clinic, and last saw him 1 week ago. Patient notes she has had chest pain but was in the ED 4 days ago and had " heart study" that resulted normal. PMHx includes vasculitis, pyoderma, GERD, rheumatoid arthritis. Home Medications Medication Instructions Recorded Confirmed Type Atenolol TAB* [Tenormin TAB* 50 MG] 100 mg PO DAILY 08/05/14 12/22/19 History Atorvastatin* [Lipitor*] 10 mg PO DAILY 08/05/14 12/22/19 History Levothyroxine TAB* [Synthroid 100 100 mcg PO DAILY 08/05/14 12/22/19 History MCG TAB*] hydrOXYzine HCL TAB* [Atarax 10 MG 10 mg PO DAILY MDD 1 tab 08/05/14 12/22/19 History TAB*] Loperamide CAP* [Imodium CAP*] 2 mg PO DAILY 09/09/14 12/22/19 History Triamterene/HCTZ 37.5-25 MG* 1 cap PO .2-3X/WEEK 10/26/14 12/22/19 History [Dyazide CAP*] EPINEPHrine [Epipen 2-Omid] 0.3 mg IM ONCE PRN 11/24/16 12/22/19 History Potassium Chlor TAB* [Klor Con ER 20 meq PO .2-3X/WEEK 11/24/16 12/22/19 History TAB*] Aspirin TAB* [Aspirin 325 MG TAB*] 325 mg PO DAILY 11/28/16 12/22/19 History Cholecalciferol TAB* [Vitamin D 800 unit PO DAILY 12/22/19 12/22/19 History TAB*] Dapsone TAB* 25 mg PO BID 12/22/19 12/22/19 History Fluconazole 100 MG TAB* [Diflucan 100 mg PO ONCE 12/22/19 12/22/19 History 100 MG TAB*] Silver Sulfadiazine [Silvadene] 1 applic TOPICAL BID 12/22/19 12/22/19 History oxyCODONE/Acetamin 5/325 MG* 1 tab PO TID PRN 12/22/19 12/22/19 History [Percocet 5/325 TAB*] predniSONE 10 mg TAB [Deltasone 10 10 mg PO BID 12/22/19 12/22/19 History MG TAB*] - History Of Current Complaint Chief Complaint: EDWeakness Time Seen by Provider: 12/22/19 10:16 Hx Obtained From: Patient Onset/Duration: Lasting Weeks, Still Present Timing: Weeks Severity Currently: Moderate Location: Pain At: - upper abdomen Aggravating Factor(s): nothing Alleviating Factor(s): nothing Associated Signs And Symptoms: Positive: Dizziness, Weakness - generalized, SOB , Nausea, Vomiting, Abdominal Pain, Dysuria, Decreased Oral Intake. Negative: Cough, Chest Pain, Fever - Allergies/Home Medications Allergies/Adverse Reactions: Allergies Allergy/AdvReac Type Severity Reaction Status Date / Time ciprofloxacin [From Cipro] Allergy Intermediate Rash Verified 12/22/19 09:10 cephalexin [From Keflex] Allergy Rash And Verified 12/22/19 09:10 Itching clindamycin Allergy Diarrhea Verified 12/22/19 09:10 erythromycin base Allergy Rash And Verified 12/22/19 09:10 Itching Penicillins Allergy Rash Verified 12/22/19 09:10 shellfish derived Allergy Anaphylatic Verified 12/22/19 09:10 Shock Sulfa (Sulfonamide Allergy Rash And Verified 12/22/19 09:10 Antibiotics) Itching Tetracyclines Allergy Rash And Verified 12/22/19 09:10 Itching Home Medications: Home Medications Atenolol TAB* [Tenormin TAB* 50 MG] 100 mg PO DAILY 08/05/14 [History Confirmed 12/22/19] Atorvastatin* [Lipitor*] 10 mg PO DAILY 08/05/14 [History Confirmed 12/22/19] Levothyroxine TAB* [Synthroid 100 MCG TAB*] 100 mcg PO DAILY 08/05/14 [History Confirmed 12/22/19] hydrOXYzine HCL TAB* [Atarax 10 MG TAB*] 10 mg PO DAILY MDD 1 tab 08/05/14 [ History Confirmed 12/22/19] Loperamide CAP* [Imodium CAP*] 2 mg PO DAILY 09/09/14 [History Confirmed ] Triamterene/HCTZ 37.5-25 MG* [Dyazide CAP*] 1 cap PO .2-3X/WEEK 10/26/14 [ History Confirmed 12/22/19] EPINEPHrine [Epipen 2-Omid] 0.3 mg IM ONCE PRN 11/24/16 [History Confirmed ] Potassium Chlor TAB* [Klor Con ER TAB*] 20 meq PO .2-3X/WEEK 11/24/16 [History Confirmed 12/22/19] Aspirin TAB* [Aspirin 325 MG TAB*] 325 mg PO DAILY 11/28/16 [History Confirmed 12/22/19] Cholecalciferol TAB* [Vitamin D TAB*] 800 unit PO DAILY 12/22/19 [History Confirmed 12/22/19] Dapsone TAB* 25 mg PO BID 12/22/19 [History Confirmed 12/22/19] Fluconazole 100 MG TAB* [Diflucan 100 MG TAB*] 100 mg PO ONCE 12/22/19 [History Confirmed 12/22/19] Silver Sulfadiazine [Silvadene] 1 applic TOPICAL BID 12/22/19 [History Confirmed 12/22/19] oxyCODONE/Acetamin 5/325 MG* [Percocet 5/325 TAB*] 1 tab PO TID PRN 12/22/19 [ History Confirmed 12/22/19] predniSONE 10 mg TAB [Deltasone 10 MG TAB*] 10 mg PO BID 12/22/19 [History Confirmed 12/22/19] PMH/Surg Hx/FS Hx/Imm Hx Endocrine/Hematology History: Reports: Hx Thyroid Disease - Hypothyroidism Denies: Hx Diabetes Cardiovascular History: Reports: Hx Deep Vein Thrombosis - 1980 - unsure of which leg - clot., Other Cardiovascular Problems/Disorders - DVT Denies: Hx Congestive Heart Failure, Hx Hypertension Respiratory History: Reports: Hx Pneumonia Denies: Hx Asthma GI History: Reports: Hx Gastroesophageal Reflux Disease, Hx Irritable Bowel, Other GI Disorders - gallbladder removal Denies: Hx Ulcer History: Denies: Hx Renal Disease Musculoskeletal History: Reports: Hx Arthritis - RA, Hx Rheumatoid Arthritis, Hx Back Problems - spinal stenosis, Hx Scoliosis Denies: Hx Osteoporosis Sensory History: Reports: Hx Contacts or Glasses Opthamlomology History: Reports: Hx Contacts or Glasses Neurological History: Reports: Hx Migraine, Other Neuro Impairments/Disorders - RHEUMATOID ARTHRITIS AND OSTEOPOROSIS FOR ABOUT 10 YEARS Denies: Hx Spinal Cord Injury - Cancer History Hx Chemotherapy: No Hx Radiation Therapy: No Hx Palliative Cancer Treatment: No - Surgical History Surgery Procedure, Year, and Place: Hysterectomy. Left shoulder. Cholecystectomy. Hx Anesthesia Reactions: No Infectious Disease History: No Infectious Disease History: Denies: Traveled Outside the [place] in Last 30 Days - Family History Known Family History: Positive: Cardiac Disease - Father with DC. Mother with CHF - Social History Alcohol Use: Rare Substance Use Type: Reports: None Smoking Status (MU): Never Smoked Tobacco Have You Smoked in the Last Year: No Review of Systems Constitutional: Other - POSITIVE: decreased PO intake Negative: Fever Negative: Chest Pain Positive: Shortness Of Breath. Negative: Cough Positive: Abdominal Pain, Vomiting, Nausea Positive: dysuria Skin: Other - POSITIVE: bilateral leg weeping Neurological/Mental Status: Other - POSITIVE: dizziness Positive: Weakness - generalized All Other Systems Reviewed And Are Negative: Yes Physical Exam - Summary Physical Exam Summary: VITAL SIGNS: Reviewed. GENERAL: Patient is a well-developed and nourished female who is lying comfortable in the stretcher. Patient is not in any acute respiratory distress. HEAD AND FACE: No signs of trauma. No ecchymosis, hematomas or skull depressions. No sinus tenderness. EYES: PERRLA, EOMI x 2, No injected conjunctiva, no nystagmus. EARS: Hearing grossly intact. Ear canals and tympanic membranes are within normal limits. MOUTH: Oropharynx within normal limits. NECK: Supple, trachea is midline, no adenopathy, no JVD, no carotid bruit, no c- spine tenderness, neck with full ROM. CHEST: Symmetric, no tenderness at palpation LUNGS: Decreased breath sounds bilaterally. CVS: Regular rate and rhythm, S1 and S2 present, no murmurs or gallops appreciated. ABDOMEN: Soft, some epigastric tenderness. No signs of distention. No rebound, no guarding, and no masses palpated. Bowel sounds are normal. EXTREMITIES: Legs with peripheral vascular disease and weeping with some ulcers. NEURO: Alert and oriented x 3. No acute neurological deficits. Speech is normal and follows commands. SKIN: Dry and warm Triage Information Reviewed: Yes Vital Signs On Initial Exam: Initial Vitals Temp Pulse Resp BP Pulse Ox 98.4 F 72 18 116/83 100 12/22/19 09:01 12/22/19 09:01 12/22/19 09:01 12/22/19 09:01 12/22/19 09:01 Vital Signs Reviewed: Yes Procedures - Procedure Summary Procedure Summary: Right EJ Placement Using ultrasound guidance right EJ line was placed. No complications. Patient tolerated the procedure well. - Sedation Patient Received Moderate/Deep Sedation with Procedure: No Diagnostics - Vital Signs Vital Signs Temp Pulse Resp BP Pulse Ox 12/22/19 09:01 98.4 F 72 18 116/83 100 - Laboratory Lab Results: Lab Results 12/22/19 12/22/19 Range/Units 09:34 09:34 WBC 23.0 H (3.5-10.8) 10^3/uL RBC 3.84 (3.70-4.87) 10^6 /uL Hgb 10.9 L (12.0-16.0) g/dL Hct 33 L (35-47) % MCV 87 (80-97) fL MCH 28 (27-31) pg MCHC 33 (31-36) g/dL RDW 19 H (10-15) % Plt Count 332 (150-450) 10^3/uL MPV 6.8 L (7.4-10.4) fL Neut % (Auto) Pending Lymph % (Auto) Pending [place] % (Auto) Pending Eos % (Auto) Pending Baso % (Auto) Pending Absolute Neuts (auto) Pending Absolute Lymphs (auto) Pending Absolute Monos (auto) Pending Absolute Eos (auto) Pending Absolute Basos (auto) Pending Absolute Nucleated RBC Pending Nucleated RBC % Pending Sodium 134 L (135-145) mmol/L Potassium 4.9 (3.5-5.0) mmol/L Chloride 105 (101-111) mmol/L Carbon Dioxide 20 L (22-32) mmol/L Anion Gap 9 (2-11) mmol/L BUN 60 H (6-24) mg/dL Creatinine 1.50 H (0.51-0.95) mg/dL Est GFR ( Amer) 40.5 (>60) Est GFR (Non-Af Amer) 33.5 (>60) BUN/Creatinine Ratio 40.0 H (8-20) Glucose 124 H (70-100) mg/dL Calcium 9.0 (8.6-10.3) mg/dL Magnesium 2.1 (1.9-2.7) mg/dL Total Bilirubin 0.40 (0.2-1.0) mg/dL AST 20 (13-39) U/L ALT 27 (7-52) U/L Alkaline Phosphatase 94 (34-104) U/L Total Protein 6.3 L (6.4-8.9) g/dL Albumin 3.2 (3.2-5.2) g/dL Globulin 3.1 (2-4) g/dL Albumin/Globulin Ratio 1.0 (1-3) Result Diagrams: 12/22/19 15:54 12/22/19 09:34 Lab Statement: Any lab studies that have been ordered have been reviewed, and results considered in the medical decision making process. - Radiology Chest XR Radiology Interpretation Completed By: Radiologist Summary of Radiographic Findings: IMPRESSION: No evidence for pneumonia. No evidence for acute intrathoracic disease. Dr. Riddle has reviewed this report. - CT Brain CT CT Interpretation Completed By: Radiologist Summary of CT Findings: IMPRESSION: No intracranial mass or hemorrhage is noted. Dr. Riddle has reviewed this report. Abdomen/Pelvis CT CT Interpretation Completed By: Radiologist Summary of CT Findings: IMPRESSION: No evidence of obstructive uropathy is noted. 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 This is new since previous exam of September 10, 2014 and neoplastic process including metastatic disease should BE considered. Parapelvic cyst is noted in the right kidney with no hydronephrosis. No obstructive uropathy is noted. Periumbilical hernia containing omentum is noted. Dr. Riddle has reviewed this report. Re-Evaluation - Re-Evaluation First Eval Re-Evaluation Time: 16:36 Comment: Placed right EJ. Complex Multi-Symp Course/Dx Assessment/Plan: This patient is a 79 y/o female presenting to [facility] via EMS for abd pain, nausea and vomiting x2 weeks. Patient reports she has had decreased PO intake secondary to vomiting. She describes upper abdominal pain. Patient states today she felt weak and "lost the ability to walk." Additionally notes dizziness, described as head spinning, and shortness of breath. Denies fever or cough. Patient reports a little bit of burning with urination. She states she has hx of vasculitis and has bilateral leg pain that weep a lot. She has been placing silver sulfadiazine powder on legs with mild relief and has also been taking Dapsone. Patient sees Dr. Nelson, at the wound clinic, and last saw him 1 week ago. Patient notes she has had chest pain but was in the ED 4 days ago and had "heart study" that resulted in normal. PMHx includes vasculitis, pyoderma, GERD, rheumatoid arthritis. In the ED course the patient was placed in a quality assurance monitor chassis, IV access was obtained, IV fluids were started. Past medical records reviewed. Blood test w/o a significant abnormality except for WBC of 23, hemoglobin of 10.9, hematocrit of 33, absolute neutrophils of 21.3, sodium of 134, carbon dioxide of 20, BUN of 60, creatinine of 1.50, glucose is 124, troponin is 0.03, CRP is 50.2. Head CT IMPRESSION: No intracranial mass or hemorrhage is noted. Abdominal and pelvic CT IMPRESSION: No evidence of obstructive uropathy is noted. 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 This is new since previous. exam of September 10, 2014 and neoplastic process including metastatic disease should BE considered. Parapelvic cyst is noted in the right kidney with no hydronephrosis. No obstructive uropathy is noted. Periumbilical hernia containing omentum is noted. In the ED course she was given IV fluids, Zofran for nausea and vomiting. She was given Levaquin for bilateral cellulitis. I discussed my physical exam and test results with Dr. Redding from the hospitalist services and she agrees to admit the patient to her services. The patient is hemodynamically stable, alert and oriented x 3. - Diagnoses Provider Diagnoses: Dizziness, Cellulitis, Abdominal pain, Dehydration, Acute renal failure - Physician Notifications Discussed Care Of Patient With: Annalise Redding - hospitalist Time Discussed With Above Provider: 13:01 Instructed by Provider To: Admit As Inpatient Discharge ED - Sign-Out/Discharge Documenting (check all that apply): Patient Departure - Admit to [facility] [place] - Discharge Plan Condition: Stable Disposition: ADMITTED TO [facility] - Billing Disposition and Condition Condition: STABLE Disposition: Admitted to [facility] - Attestation Statements Document Initiated by Alonso: Yes Documenting Scribe: Ju Viera Provider For Whom Alonso is Documenting (Include Credential): Darell Riddle MD Scribe Attestation: Ju Burrell, scribed for Darell Riddle MD on 12/22/19 at 2046. Scribe Documentation Reviewed: Yes Provider Attestation: The documentation as recorded by the Ju morales accurately reflects the service I personally performed and the decisions made by , Darell Riddle MD Status of Scribe Document: Viewed
[2019-12-22 10:35] LABS: ABS Lymphocytes 1.1 10^3/ul (1.0-4.8); ABS Monocytes 0.6 10^3/ul (0-0.8); ABS Neutrophils 21.3 10^3/ul (1.5-7.7); Lymphocyte % 4.7 %; Nucleated Red Blood Cells % 0.2
[2019-12-22] MEDS ORDERED: Ondansetron INJ* 2 MG/ML VIAL IV ONE (10:44)
[2019-12-22 10:54] LABS: Activated Partial Thrombo Time 28.8 seconds (26.0-38.0); INR 1.14 (0.82-1.09)
[2019-12-22 10:54] LABS: C Reactive Protein 50.22 mg/L (<8.01)
[2019-12-22 10:59] LABS: Troponin I 0.03 ng/mL (<0.03)
[2019-12-22] MEDS: NS 0.9% 1000 ML** 1,000 ML IV ONE (11:19)
[2019-12-22] MEDS ORDERED: Levofloxacin 750 MG IVPREMIX(* 750 MG/150 ML BAG IVPB ONE (13:09)
[2019-12-22] MEDS ORDERED: Ondansetron INJ* 2 MG/ML VIAL IV PRN (13:23)
[2019-12-22] MEDS ORDERED: Enoxaparin(*) 40 MG/0.4 ML SYR SUBCUT SCH (14:00)
[2019-12-22 15:00] LABS: TSH (Thyroid Stimulating Horm) 5.43 mcIU/mL (0.34-5.60)
[2019-12-22 15:34] LABS: Influenza A Molecular Negative (Negative); Influenza B Molecular Negative (Negative)
[2019-12-22 16:13] LABS: Hematocrit 28 % (35-47); Hemoglobin 9.3 g/dL (12.0-16.0)
--- NOTE | 2019-12-22 17:43 | HP ---
ADDENDUM NOW INCLUDED ON THIS REPORT CC: Dr. Dawood Hager; Dr. Dewayne Nelson * HISTORY AND PHYSICAL: DATE OF ADMISSION: 12/22/19 PRIMARY CARE PROVIDER: Dr. Dawood Hager. OTHER PROVIDERS: Dr. Dewayne Nelson. ATTENDING PHYSICIAN: Dr. Annalise Redding * (dictated by MICHELLE Lopez). CHIEF COMPLAINT: 1. Decreased appetite, nausea, vomiting, abdominal pain. 2. Dizziness, shortness of breath. HISTORY OF PRESENT ILLNESS: Ms. Ash is a 79-year-old female with past medical history of hypertension, rheumatoid arthritis, pyoderma gangrenosum, vasculitis, who presented to the ER today with the above complaints. The patient reports approximately 2 weeks of decreased appetite followed by vomiting. She reports that she has more difficulty keeping down solid foods, but is able to consume liquids such as coke, juice, milk. She reports some relief after consuming these. She believes she has had weight loss over the last 2 weeks due to decreased p.o. intake, although she has not weighed herself recently. She reports associated dizziness, shortness of breath and chills. She has pain in the epigastrium. She complains of weakness that is worsened in the last 2 weeks. She notes that she was walking and "knees came out of joints and I just could not stand up" which occurred yesterday and today. She reports that she has fallen a couple of times in the last month. She reports vomiting 2 times in the last 24 hours. She reports associated shortness of breath. She denies hematemesis, melena, hematochezia. She denies diarrhea. She believes that there may be some correlation with her starting dapsone and prednisone. She reports that she started these approximately 2 weeks ago, although upon reviewing her chart it appears that her dapsone dose was increased approximately 1 month ago and at that time, she also started prednisone. Discussion was had between the ER provider and her primary care provider, who reports that the patient does have a history of peptic ulcer disease which is concerning due to epigastric pain, recently starting prednisone and vomiting. In the ER, the patient received a full workup. CBC reveals leukocytosis, but appears to be chronic over the last month or so, anemia. She appears to have an acute kidney injury as well as an elevated BUN and creatinine. Her troponin was mildly elevated at 0.03. No EKG available for comparison at this time. Although the patient does deny chest pain, CRP is elevated to 50.22. CT of the head was unremarkable. CT of the abdomen and pelvis was negative for obstructive uropathy, but did show a right adrenal mass that was new since 2013 , right parapelvic kidney cyst, periumbilical hernia. In the ER, the patient received 1 L of normal saline bolus and Zofran 4 mg IV. The hospitalist team was asked to evaluate the patient for admission. PAST MEDICAL HISTORY: 1. Hypertension. 2. Hypothyroidism. 3. Rheumatoid arthritis. 4. Irritable bowel syndrome. 5. GERD. 6. Pyoderma gangrenosum. 7. Vasculitis. 8. Lymphedema and chronic venous insufficiency. 9. History of peptic ulcer disease. PAST SURGICAL HISTORY: Hysterectomy, left shoulder, cholecystectomy. HOME MEDICATIONS: 1. Aspirin 325 mg p.o. daily. 2. Atenolol 100 mg p.o. daily. 3. Atorvastatin 10 mg p.o. daily. 4. Cholecalciferol 8000 units p.o. daily. 5. Dapsone 25 mg p.o. b.i.d. 6. Epinephrine 0.3 mg IM injection once. 7. Hydroxyzine 10 mg p.o. daily. 8. Levothyroxine 100 mcg p.o. daily. 9. Loperamide 2 mg p.o. daily. 10. Oxycodone/acetaminophen 1 tab p.o. t.i.d. p.r.n. 11. Potassium chloride 20 mEq p.o. 2 to 3 times per week. 12. Prednisone 10 mg p.o. b.i.d. 13. Silver sulfadiazine 1 application topically b.i.d. 14. Triamterene/HCTZ 37.5/25 one cap p.o. 2 to 3 times per week. DRUG ALLERGIES: CIPROFLOXACIN, CEPHALEXIN, CLINDAMYCIN, ERYTHROMYCIN, PENICILLIN, SHELLFISH, SULFA, TETRACYCLINE. FAMILY HISTORY: Father had CVA and RI. Mother had heart failure. The patient is unsure of any health history regarding grandparents. No family history of diabetes or cancer as far as she knows. SOCIAL HISTORY: The patient denies current or former use of tobacco. She drinks approximately once per month at most. She denies illicit drug use. 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 She is , with 1 daughter. She lives alone with her . In the event that she is unable to make her own medical decisions, she has appointed her , Gilmar Ash, to be her surrogate decision maker. REVIEW OF SYSTEMS: A 14-point review of systems has been performed and all the pertinent positives and negatives are in the HPI. All other systems are negative. PHYSICAL EXAMINATION GENERAL: Ms. Ash is a well-developed, well-nourished, obese elderly white woman, who is sitting up in bed, she appears chronically ill. She is breathing comfortably on 2 L of supplemental oxygen. She appears mildly uncomfortable. VITAL SIGNS: Temperature 98.4 oral, heart rate 44, respiratory rate 18, oxygen saturation 100% on 2 L O2, blood pressure 138/58. HEENT: PERRL. Extraocular movements are intact. Visual hampton are grossly intact. Sclerae are nonicteric without injection. Hearing is grossly intact. Oral mucous membranes are mildly dry. There are white patches on the oral mucosa on the tongue, left greater than right. The posterior pharynx is clear without exudate or erythema. Tongue is at midline. Palate elevates symmetrically. PULMONARY: Symmetrical chest expansion without use of accessory muscles. Clear to auscultation bilaterally without rhonchi, wheeze, or rales. CARDIOVASCULAR: Sinus bradycardia. S1 and S2 present without murmurs, rubs, clicks, or gallops. There is no JVD. ABDOMEN: Bowel sounds hypoactive throughout. There does not appear to be any distention. The abdomen is soft. There is mild epigastric tenderness to palpation and mild right upper quadrant tenderness, otherwise nontender. EXTREMITIES: Bilateral lower extremities are extremely tender to palpation. NEUROLOGIC: The patient is awake. She is alert and oriented x3 with cranial nerves II through XII grossly intact. SKIN: Bilateral lower extremities with brawny purple-red skin color changes and ulcerations at various aspects of the lower extremities from the knee distally. Although the areas are mildly erythematous, there does not appear to be any underlying cellulitis. The wounds are weeping without purulent drainage. DIAGNOSTIC STUDIES/LAB DATA: 1. CBC: WBC 23.0, hemoglobin 10.9, hematocrit 33, platelets 332, absolute neutrophils 21.3. 2. CMP: Sodium 134, potassium 4.9, chloride 105, carbon dioxide 20, BUN 60, creatinine 1.50, glucose 124, magnesium 2.1. Total bilirubin 0.40, AST 20, ALT 27, alk phos 94. Troponin 0.03. CRP is 50.22. Total protein 6.3. Lipase 72. 3. CT of the brain, impression: No intracranial mass or hemorrhage is noted. 4. CT abdomen and pelvis, impression: No evidence of obstructive uropathy is noted. There is a right adrenal mass measuring up to 3.1 x 2.5 cm, this is new since previous exam of 09/10/14 and neoplastic process including metastatic disease should be considered. Parapelvic cyst is noted in the right kidney with no hydronephrosis. No obstructive uropathy is noted. Periumbilical hernia containing omentum is noted. ASSESSMENT AND PLAN: Ms. Ash is a 79-year-old female with a past medical history of hypertension, hypothyroidism, rheumatoid arthritis, pyoderma gangrenosum and vasculitis, who presented to the ER today with complaints of abdominal pain, nausea, vomiting, dizziness and shortness of breath. She will be admitted for: 1. Abdominal pain, nausea, and vomiting. The patient reports nausea, vomiting , epigastric abdominal pain for approximately 2 weeks. She is able to tolerate liquids most times, but has been unable to keep down solid foods. Per her primary care provider, she has a history of peptic ulcer disease. She appears to have an anemia as well as some dehydration, which is concerning in that her anemia may be worse than portrayed based on lab values due to hemoconcentration. A stool for blood has been ordered as has GI consult for concern for peptic ulcer disease. In the meantime, the patient will have a midline placed due to difficulty with peripheral vascular access and she will be placed on maintenance fluids of 125 cc per hour. She will be given a very light clear liquid diet. The patient believes that her symptoms began when she started prednisone, which could certainly cause gastric ulcers. Prednisone will be held. Dapsone can also reportedly cause nausea, vomiting and abdominal pain and therefore, this will be held. Her symptoms could also be from gastritis; therefore, we will continue hydration and continue to monitor. We will await GI recommendations for further results. We will continue to monitor H and H. 2. Anemia. As mentioned above, the patient does have anemia as well as some associated symptoms of dizziness and shortness of breath. I believe that her anemia may be more severe than portrayed in the lab values due to hemoconcentration. We will continue to monitor her H and H throughout her stay at least q.12 hours to assess the need for blood transfusion. A GI consult has been ordered. A stool for blood has been ordered as well. The patient does report associated dizziness, shortness of breath and weakness, which I believe is related to her anemia and dehydration. 3. Weakness, shortness of breath. As discussed above, this could all be from dehydration or anemia. Dapsone also is known to cause abdominal pain, nausea, vomiting, weakness and therefore, it will be discontinued. 4. Acute kidney injury. The patient appears to have an acute kidney injury with a creatinine of 1.50. I suspect that this is prerenal due to dehydration. She will be placed on IV fluids and we will recheck in the morning. 5. Elevated troponin. The patient has a troponin of 0.03 without complaints of chest pain. An EKG has not been obtained yet, but has been ordered. Meanwhile, we will continue to trend her troponins. Again, I suspect that this is due to demand ischemia and not acute coronary syndrome. We will continue to monitor. 6. Oral stephanie. Nystatin swish and swallow has been ordered. We will continue to monitor for need for further interventions. 7. Right adrenal mass noted on CT abdomen and pelvis that should be followed by the patient's primary care provider Dr. Hager in the outpatient setting. 8. Leukocytosis. The patient does have a leukocytosis which appears to be chronic. I believe that this is multifactorial from vasculitis versus prednisone. I do not believe that the patient is infected at this time, although she does have abdominal pain, nausea, and vomiting. I do not think that this is bacterial in nature. She does not have any symptoms of urinary tract infection. A chest x-ray was unremarkable with no evidence for pneumonia. Urinalysis will be obtained and we will continue to trend the patient's leukocytosis. 9. Hypertension. Continue atenolol. The patient states that she takes triamterene/HCTZ approximately once per week for lower extremity swelling and for no other conditions; therefore, this medication will be held at this time. 10. Hypothyroidism. TSH is pending. Meanwhile, she will continue on her home dose of levothyroxine. 11. Pyoderma gangrenosum. A wound consult has been ordered. The patient does follow with Dr. Nelson at the wound clinic here. 12. DVT prophylaxis: According to DVT Risk Assessment, the patient scores 3, placing her at high risk. She has been started on Lovenox. 13. Code status: Full code. TIME SPENT: Approximately 70 minutes was spent on this admission, greater than half that time was spent [id number] with the patient and her obtaining history, performing a physical and reviewing the plan of care. The case has been discussed with my attending, Dr. Redding, who is in agreement with the plan of care. MICHELLE BALDERAS [id number]/[facility] #: [id number] [id number]/[facility] #: [id number] [place]
[2019-12-22] MEDS: Nystatin SUSPENSION* 100000 UNITS/ML 5 ML UDC PO SCH ×2 (18:34→20:52)
[2019-12-22] MEDS: Pantoprazole* 80 mg IN NS 80 MG/250 ML BAG IV SCH (18:35)
--- NOTE | 2019-12-22 19:23 | CONS ---
CC: Dr. Hager * CONSULTATION REPORT: DATE OF CONSULT: 12/22/19 REQUESTING PHYSICIAN: The emergency department. INDICATION: Melena and anemia. NARRATIVE: Ms. Ash is a 79-year-old female with multiple medical issues, who states for the past 1 to 2 months she has had the inability to eat. She states that whenever she eats something she feels nauseated. She does admit to vomiting. No bloody vomitus. She states for the past few weeks her stools have been black and loose. She does take a full strength aspirin every day. Additionally approximately a week to a week and a half ago, she was started on prednisone. She feels weak, dizzy, lightheaded. She has an epigastric pain that does not radiate. No fevers or chills. She has never had GI bleeding in the past. Her outpatient digital business analyst is Dr. Jain. He did perform a colonoscopy on her just 2-1/2 years ago. It revealed diverticulosis and a small polyp that was removed. She has also been experiencing falls at home. She has multiple open decubitus ulcers on her lower extremities. PAST MEDICAL HISTORY: Significant for rheumatoid arthritis, lower extremity cellulitis, hypertension, dyslipidemia, hypothyroid, GERD, osteomyelitis, history of chest pain, obesity. PAST SURGICAL HISTORY: Includes shoulder surgery, cholecystectomy, hysterectomy. MEDICATIONS UPON ADMISSION: Include: 1. Aspirin 325 mg. 2. Atenolol. 3. Atorvastatin. 4. Levothyroxine. 5. Omeprazole 20 mg a day. 6. Potassium. 7. Prednisone. 8. Zofran. ALLERGIES: To CEPHALEXIN, ERYTHROMYCIN, PENICILLIN, SHELLFISH, CIPRO, SULFA, TETRACYCLINE, CLINDAMYCIN. FAMILY HISTORY: She denies any family history of GI issues. REVIEW OF SYSTEMS: Other than that mentioned in the HPI, 12 systems were reviewed and were negative. Of note on 11/25/19, her hemoglobin was 11.8, on it was 11.9, on 12/18/19 it was 12.4. PHYSICAL EXAM: Vital signs reveal temperature is 98.4, blood pressure is 149/65 , pulse is 50, respiratory rate of 15, O2 sat is 100%. General: Chronically ill- appearing female, appears her stated age, lying flat in bed, alert, oriented, pleasant, fluent. HEENT: Mucous membranes are moist without lesions , ulcers, or exudate. Neck is supple. Trachea is midline. Head is normocephalic, atraumatic. Heart: Regular rate and rhythm. Lungs: Clear to auscultation bilaterally. No wheezes, rales, or rhonchi. Abdomen: Morbidly obese. Positive bowel sounds. Mild epigastric tenderness. No rebound. No guarding. Extremities: She has significant lower extremity edema, cellulitis, and multiple foul-smelling ulcers. DIAGNOSTIC STUDIES/LAB DATA: Of note, her white count is 23, hemoglobin is 10.9 , platelets of 332. INR is 1.14. BUN is 60, creatinine is 1.15. C-reactive protein of 50. She does have a CT abdomen and pelvis from 10:34 this morning, which reveals no obstructive uropathy. ASSESSMENT AND PLAN: This is a pleasant 79-year-old female with anemia, epigastric pain, black tarry stools, elevated BUN, on full-strength aspirin with prednisone. Most likely, she has peptic ulcer disease. I would recommend we start her on IV Protonix. Hold her aspirin. We will need to monitor her hemoglobins. She will be made n.p.o. after midnight for an EGD tomorrow. [id number]/[facility] #: [id number] [facility]
--- NOTE | 2019-12-22 19:57 | HP ---
HISTORY AND PHYSICAL: ADDENDUM: ASSESSMENT AND PLAN: 1. Oral stephanie. Nystatin swish and swallow has been ordered. We will continue to monitor for need for further interventions. 2. Right adrenal mass noted on CT abdomen and pelvis that should be followed by the patient's primary care provider Dr. Hager in the outpatient setting. 3. Leukocytosis. The patient does have a leukocytosis which appears to be chronic. I believe that this is multifactorial from vasculitis versus prednisone. I do not believe that the patient is infected at this time, although she does have abdominal pain, nausea, and vomiting. I do not think that this is bacterial in nature. She does not have any symptoms of urinary tract infection. A chest x-ray was unremarkable with no evidence for pneumonia. Urinalysis will be obtained and we will continue to trend the patient's leukocytosis. MICHELLE BALDERAS [id number]/[facility] #: [id number] [place]
[2019-12-22] MEDS: Nystatin TOP POWDER* 15 GM BTL TOPICAL SCH (20:47)
[2019-12-22] MEDS ORDERED: Silver Sulfadiazine 1% 400gm* 1 APPLIC JAR TOPICAL SCH (21:00)
[2019-12-22] MEDS: Silver Sulfadiazine 1%* 85 GM TOPICAL SCH (21:36)
[2019-12-22] MEDS: NS 0.9% 1000 ML** 1,000 ML IV SCH (21:37)
[2019-12-22 23:03] LABS: Hematocrit 29 % (35-47); Hemoglobin 8.8 g/dL (12.0-16.0)
[2019-12-23] MEDS ORDERED: Al Hydrox/Mg Hydrox/Simet LIQ* 30 ML UDC PO ONE (01:15)
[2019-12-23 04:34] LABS: Hematocrit 20 % (35-47); Hemoglobin 6.7 g/dL (12.0-16.0); Mean Corpuscular HGB Conc 33 g/dL (31-36); Mean Corpuscular Hemoglobin 29 pg (27-31); Mean Corpuscular Volume 87 fL (80-97); Mean Platelet Volume 7.1 fL (7.4-10.4); Platelet Count 247 10^3/uL (150-450); Red Blood Count 2.35 10^6 /uL (3.70-4.87); Red Cell Distribution Width 18 % (10-15); White Blood Count 17.5 10^3/uL (3.5-10.8)
--- NOTE | 2019-12-23 04:42 | OP ---
Operative Report - Blank - Operative Report Date of Operation: 12/23/19 Note: OP NOTE Pre: Hypotension, GI bleeding Post: Same Procedure: Insertion of right femoral triple lumen catheter Surgeon: Enrique Anes:1 % Lidocaine EBL: min Wound: One Specimen: None Drain: none Findings: Unable to place in Right IJ or Right subclavian vein--ultimately inserted in right femoral vein Post-Procedure CXR without PTX
[2019-12-23 04:49] LABS: Anion Gap 5 mmol/L (2-11); BUN/Creatinine Ratio 52.3 (8-20); Blood Urea Nitrogen 58 mg/dL (6-24); CO2 Carbon Dioxide 21 mmol/L (22-32); Calcium 7.5 mg/dL (8.6-10.3); Chloride 109 mmol/L (101-111); EGFR African American 57.4 (>60); EGFR Non-African American 47.4 (>60); Glucose 156 mg/dL (70-100); Magnesium 1.6 mg/dL (1.9-2.7); Potassium 4.5 mmol/L (3.5-5.0); Sodium 135 mmol/L (135-145)
[2019-12-23 04:54] LABS: Troponin I 0.03 ng/mL (<0.03)
--- NOTE | 2019-12-23 04:55 | PN ---
Hospitalist Progress Note Date of Service: 12/23/19 Called to bedside at 1230. Received calls prior to bradycardia that was asymptomatic. plan to monitor bp was stable. At 1215 received call that patient in the 27's and dizzy. Patient also having brungin epigastric pain. EKG ordered and labs. ALso informed of no IV access. 1230 at bedside patient states she has burning sensation in epigastric area and tenderness. Unable to place PIV. Called attending Dr Kirby made aware. Prior to my arrival patient had black bm and now complaints of dizziness with position change. Suspect Gi bleed worsening. Asked Dr sanders for a CVC given no access. Call at [address] line and concern for PTX. CXR ordered tx to ICU. Call placed to Certified Public Accountant to alert him of situation. Place transfer in stable condition. ED attending pull to ER for patient care. Called General surgery to come and place possible chest tube and cvc. Reviewed xray with attending ? PTX surgery reviewed no PTX seen and read obtained by radiology no PTX noted. Central line attempted by surgery IJ attempeted no success and sublcavin as attempted. Right femoral line obtained, labs checked, BP in ruddy 70's/30's went pt upright. In supine position bp 110's/40. LAbs sent, h and h low and patient had another tarry stool. 2 units PRBC ordered, checking BMP, trops, lactic now and h and h, Repeat cxr after 2nd ij and subclavin attempt shows no ptx per surgery , will monitor closely,
[2019-12-23] MEDS ORDERED: Magnesium Sulfate 2 GM IV* 2 GM/50 ML BAG IVPB ONE (05:00)
[2019-12-23] MEDS: Levothyroxine TAB* 100 MCG TAB PO SCH (05:11)
[2019-12-23] MEDS ORDERED: NS 0.9% 1000 ML** 1,000 ML IV ONE (05:14)
[2019-12-23] MEDS: NS 0.9% 1000 ML** 1,000 ML IV ONE (05:17)
[2019-12-23] MEDS: Hydrocortisone INJ* 100 MG/2 ML VIAL (in pyxis) IV SCH ×3 (05:18→21:14)
[2019-12-23 05:33] LABS: ABS Lymphocytes 1.1 10^3/ul (1.0-4.8); ABS Monocytes 0.5 10^3/ul (0-0.8); ABS Neutrophils 15.9 10^3/ul (1.5-7.7); Eosinophil % 0.1 %; Lymphocyte % 6.2 %; Nucleated Red Blood Cells % 0.1
--- NOTE | 2019-12-23 05:44 | ED ---
ED Procedures - Procedure Summary Procedure Summary: Right EJ Placement Using ultrasound guidance right EJ line was placed. No complications. Patient tolerated the procedure well. - Central Line Left Jugular Central Line Lumen: triple Central Line Procedure: sterile drapes applied - chloraprep; central line placed with ultrasound guidance Central Line Position: internal jugular (L) Anesthesia: Lidocaine Complications: With insertion of the needle and syringe, there was venous blood return. The guide wire was introduced with no complication and minimal initial resistance. The dilator was introduced with no resistance. Line was placed to 15cm with no resistance. However, when drawing back, line everton back air. Initially patient denied any difficulty breathing. Each time an attempt was made for draw back there was no blood return, only air bubbles. Patient then complained of some shortness of breath. Line was pulled. CXR ordered. Breath sounds equal bilaterally. Patient stated breathing was better once the line was pulled. - Attestation Statements Document Initiated by Alonso: Yes Documenting Scribe: Jillian Perez Provider For Whom Alonso is Documenting (Include Credential): Dr. Arina Escoto MD Scribe Attestation: Jillian Burrell scribed for Dr. Arina Escoto MD on 12/23/19 at 0703. Scribe Documentation Reviewed: Yes Provider Attestation: The documentation as recorded by the Jillian morales accurately reflects the service I personally performed and the decisions made by me, Dr. Arina Escoto MD Status of Scribe Document: Viewed
[2019-12-23 05:51] LABS: TSH (Thyroid Stimulating Horm) 1.67 mcIU/mL (0.34-5.60)
[2019-12-23] MEDS ORDERED: Norepinephrine 16MCG/ML IVPRE* 4,000 MCG/250 ML BAG IV SCH (06:00)
[2019-12-23] MEDS: Pantoprazole* 80 mg IN NS 80 MG/250 ML BAG IV SCH ×4 (06:38→18:16)
[2019-12-23] MEDS: hydrOXYzine HCL TAB* 10 MG PO SCH (07:47)
[2019-12-23] MEDS: Atorvastatin* 10 MG TAB PO SCH (07:47)
[2019-12-23] MEDS: Loperamide CAP* 2 MG PO SCH (07:48)
[2019-12-23] MEDS: Nystatin SUSPENSION* 100000 UNITS/ML 5 ML UDC PO SCH ×4 (07:48→21:16)
[2019-12-23] MEDS: Nystatin TOP POWDER* 15 GM BTL TOPICAL SCH ×3 (08:18→21:16)
[2019-12-23] MEDS: Silver Sulfadiazine 1%* 85 GM TOPICAL SCH (08:18)
[2019-12-23] MEDS ORDERED: Atenolol TAB* 50 MG PO SCH (09:00)
--- NOTE | 2019-12-23 12:04 | PN ---
Date of Service: 12/23/19 Critical Care Services: Transferred to ICU for Hypovolemic Shock and Acute Bloodloss Anemia secondary to apparent UGIB. Vital Signs: Temp Pulse Resp BP SpO2 FiO2 36.9 C 57 21 73/48 96 12/23/19 08:00 12/23/19 11:01 12/23/19 11:01 12/23/19 11:01 12/23/19 11:01 Physical Exam: Gen: HEENT: Lungs: Cardiac: Abdomen: Extremities: Neuro: Fluid Balance (Past 24 Hours): I= O= Net Intake & Output 12/21/19 12/22/19 12/23/19 12/24/19 06:59 06:59 06:59 06:59 Intake Total 1902 0 Balance 1902 0 Weight 85.094 kg Intake: IV Fluids 1491 NS (0.9%) 1320 Protonix 171 Medicated IV 1 CC - Norepinephrine/ 1 Levophed Oral 410 0 Other: Estimated Void Medium # Bowel Movements 3 1 Estimated Stool Amount Large Large # Voids 1 Labs: Laboratory Results - last 24 hr 12/22/19 12/22/19 12/22/19 09:34 13:27 14:02 WBC RBC Hgb Hct MCV MCH MCHC RDW Plt Count MPV Neut % (Auto) Lymph % (Auto) [place] % (Auto) Eos % (Auto) Baso % (Auto) Absolute Neuts (auto) Absolute Lymphs (auto) Absolute Monos (auto) Absolute Eos (auto) Absolute Basos (auto) Absolute Nucleated RBC Nucleated RBC % Sodium 134 L Potassium 4.9 Chloride 105 Carbon Dioxide 20 L Anion Gap 9 BUN 60 H Creatinine 1.50 H Est GFR ( Amer) 40.5 Est GFR (Non-Af Amer) 33.5 BUN/Creatinine Ratio 40.0 H Glucose 124 H Lactic Acid Calcium 9.0 Magnesium 2.1 Total Bilirubin 0.40 AST 20 ALT 27 Alkaline Phosphatase 94 Troponin I 0.03 H* 0.01 C-Reactive Protein 50.22 H Total Protein 6.3 L Albumin 3.2 Globulin 3.1 Albumin/Globulin Ratio 1.0 Lipase 72 TSH 5.43 Influenza A (Rapid) Negative Influenza B (Rapid) Negative Blood Type Antibody Screen Crossmatch 12/22/19 12/22/19 12/22/19 15:54 15:54 22:59 WBC RBC Hgb 9.3 L 8.8 L Hct 28 L 29 L MCV MCH MCHC RDW Plt Count MPV Neut % (Auto) Lymph % (Auto) [place] % (Auto) Eos % (Auto) Baso % (Auto) Absolute Neuts (auto) Absolute Lymphs (auto) Absolute Monos (auto) Absolute Eos (auto) Absolute Basos (auto) Absolute Nucleated RBC Nucleated RBC % Sodium Potassium Chloride Carbon Dioxide Anion Gap BUN Creatinine Est GFR ( Amer) Est GFR (Non-Af Amer) BUN/Creatinine Ratio Glucose Lactic Acid Calcium Magnesium Total Bilirubin AST ALT Alkaline Phosphatase Troponin I 0.02 C-Reactive Protein Total Protein Albumin Globulin Albumin/Globulin Ratio Lipase TSH Influenza A (Rapid) Influenza B (Rapid) Blood Type Antibody Screen Crossmatch 12/23/19 12/23/19 12/23/19 04:14 04:14 04:14 WBC 17.5 H RBC 2.35 L Hgb 6.7 L Hct 20 L MCV 87 MCH 29 MCHC 33 RDW 18 H Plt Count 247 MPV 7.1 L Neut % (Auto) 90.6 Lymph % (Auto) 6.2 [place] % (Auto) 3.0 Eos % (Auto) 0.1 Baso % (Auto) 0.1 Absolute Neuts (auto) 15.9 H Absolute Lymphs (auto) 1.1 Absolute Monos (auto) 0.5 Absolute Eos (auto) 0.0 Absolute Basos (auto) 0.0 Absolute Nucleated RBC 0.0 Nucleated RBC % 0.1 Sodium 135 Potassium 4.5 Chloride 109 Carbon Dioxide 21 L Anion Gap 5 BUN 58 H Creatinine 1.11 H Est GFR ( Amer) 57.4 Est GFR (Non-Af Amer) 47.4 BUN/Creatinine Ratio 52.3 H Glucose 156 H Lactic Acid 2.0 Calcium 7.5 L Magnesium 1.6 L Total Bilirubin AST ALT Alkaline Phosphatase Troponin I 0.03 H* C-Reactive Protein Total Protein Albumin Globulin Albumin/Globulin Ratio Lipase TSH 1.67 Influenza A (Rapid) Influenza B (Rapid) Blood Type Antibody Screen Crossmatch 12/23/19 04:14 WBC RBC Hgb Hct MCV MCH MCHC RDW Plt Count MPV Neut % (Auto) Lymph % (Auto) [place] % (Auto) Eos % (Auto) Baso % (Auto) Absolute Neuts (auto) Absolute Lymphs (auto) Absolute Monos (auto) Absolute Eos (auto) Absolute Basos (auto) Absolute Nucleated RBC Nucleated RBC % Sodium Potassium Chloride Carbon Dioxide Anion Gap BUN Creatinine Est GFR ( Amer) Est GFR (Non-Af Amer) BUN/Creatinine Ratio Glucose Lactic Acid Calcium Magnesium Total Bilirubin AST ALT Alkaline Phosphatase Troponin I C-Reactive Protein Total Protein Albumin Globulin Albumin/Globulin Ratio Lipase TSH Influenza A (Rapid) Influenza B (Rapid) Blood Type O Negative Antibody Screen Negative Crossmatch See Detail Impression: Hypovolemic Shock and Acute Bloodloss Anemia secondary to apparent UGIB Plan: Hypovolemic Shock and Acute Bloodloss Anemia - secondary to apparent UGIB. Has received 2 units PRBC and BP better overall but still on low dose levophed at 2mcg/min. She is not tachycardic, in fact, currently RSR 64. Some sinus filippo overnight but nothing this AM. Satuarting 100% with RR in teens and no dyspnea on 5L oxygen. Plan is EGD today per GI. INR normal and platelets adequate. Received some steroids overnight for relative adrenal insufficiency given history steroid usage and HoTN. Repeat Hgb pending after current transfusion. Continue protonix gtt. Troponemia - EKG with non-specific changes and not grossly ischemic allowing for lead placement. Very trivial troponins despite the HoTN and no anginal equivalents. Continue lipitor and treat the source of any demand ischemia, in this case, bleeding, as we are doing with EGD pending. Hypothyroidism - continue synthroid Hyperlipidemia -continue lipitor. D/W pt at bedside who voiced understanding and appreciation for the care. Critical Care Time: 40 minutes
[2019-12-23] MEDS ORDERED: fentaNYL* 50 MCG/ML 2 ML VIAL (100 MCG VIAL) ONE (12:19)
[2019-12-23] MEDS ORDERED: Midazolam* 1 MG/ML 10 ML VIAL (10 MG) ONE (12:19)
[2019-12-23 12:52] LABS: Hematocrit 25 % (35-47); Hemoglobin 8.3 g/dL (12.0-16.0)
[2019-12-23] MEDS: NS 0.9% 1000 ML** 1,000 ML IV SCH ×2 (13:05→21:08)
[2019-12-23 13:28] LABS: Urine Appearance Turbid; Urine Bilirubin Negative (Negative); Urine Blood 2+ (Negative); Urine Color Amber; Urine Glucose Negative (Negative); Urine Ketones Negative (Negative); Urine Nitrite Positive (Negative); Urine Protein 1+(30 mg/dL) (Negative); Urine Urobilinogen Negative (Negative)
[2019-12-23 13:31] LABS: Troponin I 0.04 ng/mL (<0.03)
[2019-12-23 13:34] LABS: Urine Bacteria 1+ (Absent); Urine Red Blood Cell 3+(>10/hpf) (Absent); Urine Squamous Epithelial Cell Present (Absent); Urine Transitional Epithelial Present (Absent); Urine White Blood Cell 3+(>20/hpf) (Absent)
[2019-12-23] MEDS: oxyCODONE/Acetamin 5/325 MG* TAB PO PRN ×2 (15:35→21:34)
[2019-12-23 17:23] LABS: Hematocrit 24 % (35-47)
--- NOTE | 2019-12-23 18:12 | CONSULT ---
Subjective Date of Service: 12/23/19 Interval History: Ms. 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 She was admitted to the hospital for anemia, ABD pain, nausea, vomiting, weakness, and shortness of breath. While in the hospital she was found to have a upper GI bleed. She presented to the hospital with known wounds to bilateral LEs, she follows with the wound clinic and dermatology. In October 2019 was diagnosed with Sneddon-Quick and started on Dapsone. She was later diagnosed with suspected Pyoderma gangrenosum and was started on Prednisone and increased Dapsone in November 2019. At home she has been treating the wounds with silvadene and barrier cream. She was noted to have open areas to bilateral buttocks at the time of admission. Patient seen and examined at bedside. Verbal consent for wound consultation and photographs. Family History: Unchanged from Admission Social History: Unchanged from Admission Past Medical History: Unchanged from Admission Review of Systems - Measurements Intake and Output: Intake and Output Last 24 Hours 12/21/19 12/22/19 12/23/19 12/24/19 06:59 06:59 06:59 06:59 Intake Total 1902 1387 Output Total 150 Balance 1902 1237 Weight 187 lb 9.6 oz Intake: IV Fluids 1491 1304 NS (0.9%) 1320 1098 Protonix 171 206 IVPB 27 NS (0.9%) 27 Medicated IV 1 56 CC - Norepinephrine/ 1 56 Levophed Oral 410 0 Output: [place] 150 Other: Estimated Void Medium # Bowel Movements 3 1 Estimated Stool Amount Large Large # Voids 1 - Review of Systems Constitutional Symptoms: Negative: Fever, Other - Chills Dermatology: Positive: Other - Mulitple open areas to buttocks and bilateral LEs Endocrinology: Positive: Obesity, Diabetes Mellitus Objective Active Medications: Acetaminophen (Tylenol Tab*) 650 mg PO Q4H PRN Reason: mild to moderate pain Atorvastatin Calcium (Lipitor*) 10 mg PO DAILY JOHN Hydrocortisone Sodium Succinate (Solu-Cortef*) 100 mg IV Q8H JOHN Hydroxyzine HCl (Atarax Tab*) 10 mg PO DAILY [facility] Sodium Chloride (Ns 0.9% 1000 Ml) 1,000 mls @ 125 mls/hr IV PER RATE JOHN Pantoprazole Sodium (Protonix Iv Bag*) 80 mg in 250 mls @ 25 mls/hr IV Q10H JOHN Norepinephrine Bitartrate (Levophed 16 Mcg/Ml Premix*) 4,000 mcg in 250 mls @ 18.75 mls/hr IV .PER PROTOCOL JOHN; Protocol Ceftriaxone Sodium 1 gm/ (Sodium Chloride) 50 mls @ 100 mls/hr IVPB Q24H JOHN Levothyroxine Sodium (Synthroid Tab*) 100 mcg PO DAILY@0600 JOHN Loperamide HCl (Imodium Cap*) 2 mg PO DAILY [facility] Nystatin (Nystatin Suspension*) 200,000 units PO QID [facility] Nystatin (Nystatin Top Powder*) 1 applic TOPICAL TID [facility] Ondansetron HCl (Zofran Inj*) 4 mg IV Q4H PRN Reason: NAUSEA/VOMITING Oxycodone/Acetaminophen (Percocet 5/325 Tab*) 1 tab PO TID PRN Reason: PAIN - MODERATE Silver Sulfadiazine (Silvadine 1%*) 1 applic TOPICAL BID [facility] Vital Signs 12/23/19 12/23/19 12/23/19 14:48 15:00 15:01 Temperature 96.3 F 96.3 F 96.3 F Pulse Rate 64 70 62 Respiratory 18 18 21 Rate Blood Pressure 136/65 107/59 (mmHg) O2 Sat by Pulse 98 91 99 Oximetry Oxygen Devices in Use Now: OxyMask Appearance: NAD, laying in bed Ears/Nose/Mouth/Throat: Mucous Membranes Moist Respiratory: Symmetrical Chest Expansion and Respiratory Effort Extremities: No Edema Skin: - - See skin note below Neurological: Alert and Oriented x 3 Result Diagrams: 12/29/19 05:02 12/29/19 05:02 Additional Lab and Data: Above labs were pulled in to the note, when the note was edited prior to signing. See below for labs from day of consultation. Laboratory Tests 12/22/19 12/23/19 12/23/19 09:34 04:14 04:14 WBC 17.5 H Hgb 6.7 L Hct 20 L Plt Count 247 Sodium 135 Potassium 4.5 Chloride 109 Carbon Dioxide 21 L BUN 58 H Creatinine 1.11 H Glucose 156 H Total Protein 6.3 L Albumin 3.2 Microbiology and Other Data: SURGICAL PATHOLOGY REPORT 11/25/19 Skin, right ankle, biopsy: -- Ulcer and ulcer bed with reactive vascular hyperplasia and an acute inflammatory exudate; see comment. COMMENT: The histologic differential diagnosis includes vasculopathic ulceration and pyoderma gangrenosum. Electronically Signed by: Flores Abraham MD Reported on: 11/26/19 1103 Skin Deviation Note - Skin Deviation Findings Right lateral/posterior lower leg - There are 2 large open areas, the proximal area is 8 cm x 7 cm x 0.2 cm. The wound base pink granulation tissue, there are a few areas that appear to be epithelial islands. The distal area is 17 cm x 8 cm x 0.1 cm. The wound base is 90 % red granulation tissue and 10% yellow slough. There is scant to a small amount of serous drainage. The surrounding skin is difficult to fully visualize in the setting of zinc oxide previously applied. Right anterior/medial lower leg - There are 3 wound with 100% necrotic tissue present. The proximal wound on the anterior leg, measures 2.5 cm x 2 cm x 0.1 cm. The wound base is 100% necrotic tissue. The distal wound on t he anterior leg, measures 1 cm x 1 cm x 0.1 cm. The wound base is 100% necrotic tissue. The medial leg wound (between the 2 on the anterior leg), measures, 3.5 cm x 2 cm x 0.6 cm. The wound base is 100% dark necrotic tissue. There is scan to a small amount of serous drainage from the wounds. Unable to visualize the surrounding skin in the setting of zinc oxide previously applied. Not pictured well: Anterior/medial lower leg - There is an open area, measures 1.5 cm x 1 cm x 0.1 cm. The wound base is pink granulation tissue. There is scant serous drainage, and the surrounding skin is intact. Left medial lower leg - The left posterior leg with 2 open areas. The proximal area, measures 4 cm x 3.5 cm x 0.2 cm. The wound base is 95 % pink granulation tissue and 5 % necrotic tissue. There is a small amount of serous drainage. The distal wound, measures 2 cm x 2.5 cm x 0.1 cm. The wound base is 100% yellow necrotic tissue. There is scant serous drainage. The surrounding skin is difficult to assessing the setting of zinc oxide being applied. Medial ankle - There is an open area, measures 3 cm x 3.5 cm x 0.1 cm. The wound base is 100% red granulation tissue. here is scant serous drainage. The surrounding skin is difficult to assessing the setting of zinc oxide being applied. Left lateral/posterior lower leg - There is a cluster of open areas, measures 4.8 cm x 3 cm x 0.1 cm. The wound bases are pink granulation tissue. There is scant serous drainage. The surrounding skin is intact. Bilateral posterior lower legs - See above for measurements of the right posterior leg. There is a linear open area to the right Achilles area, measures 0.5 cm x 3.5 cm x 0.3 cm. The wound base is 100% red granulation tissue. There is scant serous drainage. The surrounding skin is intact. See above for measurements of the left posterior and medial leg. Buttocks - Right buttock with a cluster of open areas, measures 1.5 cm x 5 cm x 0.1 cm. The wound bases are 100% pink granulation tissue. There is scant serous drainage. The surrounding skin is intact. Left buttock with 2 open areas near the left gluteal fold; distal wound measures 1 cm x 1.8 cm x 0.1 cm. and the distal wound measures, 1 cm x 2 cm x 0.1 cm. The wound bases area pink epithelial tissue. The surrounding skin is intact. There is scant serous drainage. Wound Problem/Plan Assessment: Ms. 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 She was admitted to the hospital for anemia, ABD pain, nausea, vomiting, weakness, and shortness of breath. While in the hospital she was found to have a upper GI bleed. She presented to the hospital with known wounds to bilateral LEs, she follows with the wound clinic and dermatology. She was noted to have open areas to bilateral buttocks at the time of admission. 1. Bilateral LE wounds. Recent skin BX showed possible pyoderma gangrenosum. She is on Dapsone per Dermatology. She was unable to tolerate prednisone. Discontinue Silvadene. Recommend applying barrier cream (orange top) to bilateral legs to the intact skin (this will help protect this skin from any drainage). Apply Vaseline gauze to the open areas on bilateral LEs (Do NOT apply other dressing to the legs, and if Pt is unable to tolerate discontinue use of Vaseline gauze). Keep legs elevated as tolerated. She should continue to follow with the [facility] at discharge. 2. Open areas to bilateral buttocks, caused by moisture associated dermatitis in the setting of incontinence. Pressure may also be a component. Recommend providing incontinence care as needed. Apply barrier cream (orange top) to the area as needed. Frequent turning and repositioning. Use a friction reduction device to move in bed. Will add a pre-albumin to the last labs. 3. History of venous insufficiency and lymphedema. Edema is controlled at this time. 4. Candidiasis. Rash in ABD fold and under bilateral breasts. Agree with Nystatin powder. 5. Obesity. BMI 35.4. 6. Nutrition. Recommend meeting minimal nutrition requirements to assist with wound healing (Protein 1.3-1.5 grams/kg per day and Calories 30-35 kcal/kg per day). Clear liquid diet. 7. Code Status. Full Code Status. 8. Disposition. Inpatient, disposition per primary medicine team. TIME SPENT: Time for this wound consultation was 35 minutes and 25 minutes was spent with the patient discussing past medical history; assessing, measuring, and photographing the wounds; and repositioning the patient. Is Patient a Wound Clinic Patient: Yes - Last visit with Dr. Nelson on 12/16/19 Current Treatment: Zinc oxide to intact skin, Medihoney and triamcinolone cream to open areas, rolled gauze and medigrip Attending: Catrachita Bates
[2019-12-23] MEDS: cefTRIAXone(*) 1 GM in NS 0.9% 50 ML* 50 ML IVPB SCH (18:25)
[2019-12-23 19:06] LABS: Prealbumin 16 mg/dL (18-38)
--- NOTE | 2019-12-23 21:22 | OP ---
DATE OF OPERATION: 12/23/19 - ROOM #ICU-03 DATE OF : 40 SURGEON: Jamey Nunez MD [employer] MA[employer]: None. ANESTHESIOLOGIST: Dr. Méndez. ANESTHESIA: 1% lidocaine plain. PRE-OP DIAGNOSES: 1. Hypotension. 2. Gastrointestinal bleeding. POST-OP DIAGNOSES: 1. Hypotension. 2. Gastrointestinal bleeding. OPERATIVE PROCEDURE: Insertion of right femoral vein triple lumen catheter after unsuccessful attempts at placement in the right internal jugular vein and right subclavian vein. INDICATIONS: Ms. Eloisa Ash is a 79-year-old woman admitted with dehydration and GI bleed. She is scheduled for upper endoscopy in the morning, but she was transferred to the intensive care unit tonight for hypotension and dropping hemoglobin. IV access was unable to be obtained and surgical consultation was obtained. Briefly, I was able to explain the procedure to the patient and the risks briefly of bleeding and pneumothorax were explained, but this was quite expedited due to the patient's GI bleeding and hypotension, but written and informed consent was obtained. ESTIMATED BLOOD LOSS: Trace. SPECIMENS: None. WOUND CLASSIFICATION: I. DRAINS: None. COMPLICATIONS: None. FINDINGS: I was unable to puncture the right subclavian vein or the right internal jugular vein despite the use of ultrasound. Due to the patient's GI bleeding and hypotension, a triple lumen catheter was placed in the right femoral vein without difficulty. Postprocedural chest x-ray showed no evidence of pneumothorax or other acute findings. DESCRIPTION OF PROCEDURE: Written informed consent was obtained, the right neck and right groin were prepped and draped. They were marked with indelible ink. Time-out verification was completed. The patient was placed in Trendelenburg and the right neck and anterior chest were prepped and draped in the usual sterile fashion. Time-out verification was once again completed. Using the ultrasound machine, I was able to identify a right internal jugular vein in the usual position. However, this was very collapsible and not particularly distended. 1% lidocaine was infiltrated and at multiple attempts I attempted to pass the 18 - gauge Cook needle into the vein, but I was unable to get blood return despite the use of the ultrasound machine. I then tried 1 pass under the clavicle and the anatomy was less than favorable without blood return and I felt that this was not going to be an appropriate place to put the line. Due to her persistent GI bleeding, I made a decision to proceed with right femoral vein placement. The right groin was then prepped and draped in a usual sterile fashion. This was marked with indelible ink. A new triple lumen kit was opened. There was a strong palpable right femoral pulse. 1% lidocaine was infiltrated just medial to this and then an 18-gauge needle was used to puncture the vein with good blood return without difficulty. The guidewire was inserted and the tract was dilated. The triple lumen catheter was then placed over the wire using the Seldinger technique. There was good blood return from all 3 ports. They were flushed with saline. The catheter was secured to the skin with several 3-0 silk sutures and occlusive sterile dressing was applied. Postprocedural chest x-ray was obtained, which showed no evidence of pneumothorax or other acute abnormality in the chest. [id number] #: [id number] MTDD
[2019-12-23 21:38] LABS: Hematocrit 23 % (35-47); Hemoglobin 7.5 g/dL (12.0-16.0)
--- NOTE | 2019-12-24 02:05 | PRO ---
DATE: 12/23/19 - ROOM #ICU-03 REFERRING PHYSICIAN: Dawood Hager MD. * PROCEDURE: Upper gastrointestinal endoscopy to second portion of duodenum. INDICATION: This 79-year-old woman with a history of morbid obesity and chronic leg wounds has been treated for vasculitis at home taking Dapsone 25 b.i.d., prednisone 10 b.i.d., aspirin 325 (plus possibly other headache and other remedies containing aspirin) and also has a history of esophageal monilia , recently started on Diflucan. She came in passing melena, and initially hemoglobin 5 days ago was 12.4 and then dropped to 6.7 last night. Her BUN, which had been sinking to 25, was 48 five days ago. She has been passing dark loose stool. IV access is difficult and she has a right femoral line. She has never had prior upper endoscopy. Informed consent was obtained in discussion with the patient reviewing possible endoscopic therapy and surgery. ENDOSCOPIST: Dr. Jain. MEDICATIONS: Midazolam 1.5, fentanyl 25 with good tolerance. FINDINGS: She is a morbidly obese elderly woman in no overt distress although tired. She was positioned left side down and small doses of medication given and she was comfortable with the procedure. ESOPHAGOGASTRODUODENOSCOPY: Larynx - narrow, no gross abnormality. Esophagus - white exudate typical of monilia in the mid esophagus in large amounts and then scattered in the lower one-third. EG junction was about 37. Stomach - moderate sized hiatal hernia. The stomach itself has 150 cc of dark liquid with no clots or active red blood. The rugal pattern appears normal. No ulcers or deformity were seen. After suctioning, there still are no erosions in the stomach per se. The antrum appears normal with splatter of old blood. Duodenum - the pylorus is normal. The bulb is normal in the proximal two- thirds and then there are ulcers on opposite jimenez about 30% circumferential each, deep, with black bases and numerous sites potentially representing sentinel events. There is no large adherent clot or protruding visible vessel. Observing the area for about 10 minutes, no bleeding occurred and no clear-cut dominant site was seen and with the depth of the ulcers, it was elected to leave them for the moment. IMPRESSION: 1. 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 2. Moderate hiatal hernia. 3. Duodenal ulcers - continue PPI drip and off aspirin and all NSAIDs. 4. A relook endoscopy for continued signs of bleeding would be potentially therapeutic, although the location and depth of these ulcers may vary well if bleeding continues, require surgery. [id number]/CPS #: [id number] [facility]
[2019-12-24] MEDS: Pantoprazole* 80 mg IN NS 80 MG/250 ML BAG IV SCH ×4 (03:14→15:20)
[2019-12-24] MEDS: NS 0.9% 1000 ML** 1,000 ML IV SCH ×3 (04:03→21:59)
[2019-12-24 04:12] LABS: Hematocrit 24 % (35-47); Hemoglobin 8.1 g/dL (12.0-16.0); Mean Corpuscular HGB Conc 34 g/dL (31-36); Mean Corpuscular Hemoglobin 29 pg (27-31); Mean Corpuscular Volume 86 fL (80-97); Mean Platelet Volume 7.2 fL (7.4-10.4); Platelet Count 158 10^3/uL (150-450); Red Blood Count 2.84 10^6 /uL (3.70-4.87); Red Cell Distribution Width 16 % (10-15); White Blood Count 17.7 10^3/uL (3.5-10.8)
[2019-12-24 04:28] LABS: Albumin/Globulin Ratio 1.2 (1-3); Calcium 6.8 mg/dL (8.6-10.3); EGFR African American 83.7 (>60); EGFR Non-African American 69.2 (>60); Globulin 1.7 g/dL (2-4); Magnesium 1.9 mg/dL (1.9-2.7); Phosphorus 2.3 mg/dL (2.5-5.0); Potassium 4.2 mmol/L (3.5-5.0); Total Bilirubin 0.4 mg/dL (0.2-1.0); Total Protein 3.7 g/dL (6.4-8.9)
[2019-12-24 04:30] LABS: Troponin I 0.01 ng/mL (<0.03)
[2019-12-24] MEDS: Hydrocortisone INJ* 100 MG/2 ML VIAL (in pyxis) IV SCH ×3 (04:55→20:34)
[2019-12-24] MEDS: Levothyroxine TAB* 100 MCG TAB PO SCH (04:57)
[2019-12-24 05:36] LABS: ABS Lymphocytes 0.7 10^3/ul (1.0-4.8); ABS Monocytes 0.4 10^3/ul (0-0.8); ABS Neutrophils 16.6 10^3/ul (1.5-7.7); ABS Nucleated RBC 0.1 10^3/ul; Nucleated Red Blood Cells % 0.6
[2019-12-24] MEDS: Nystatin TOP POWDER* 15 GM BTL TOPICAL SCH ×3 (07:29→20:34)
[2019-12-24] MEDS: oxyCODONE/Acetamin 5/325 MG* TAB PO PRN ×3 (07:37→23:40)
[2019-12-24] MEDS: Atorvastatin* 10 MG TAB PO SCH (07:37)
[2019-12-24] MEDS: Loperamide CAP* 2 MG PO SCH (07:37)
[2019-12-24] MEDS: Nystatin SUSPENSION* 100000 UNITS/ML 5 ML UDC PO SCH ×4 (07:37→20:34)
[2019-12-24] MEDS: hydrOXYzine HCL TAB* 10 MG PO SCH (07:40)
[2019-12-24] MEDS ORDERED: Calcium Gluconate INJ* 2 GM in NS 0.9% 100 ML* 100 ML IV ONE (11:01)
--- NOTE | 2019-12-24 11:14 | PN ---
Date of Service: 12/24/19 Critical Care Services: Improving steadily Vital Signs: Temp Pulse Resp BP SpO2 FiO2 35.9 C 59 20 119/80 100 12/24/19 10:47 12/24/19 10:31 12/24/19 10:47 12/24/19 10:47 12/24/19 10:16 Physical Exam: Gen: no complaint apart from her chronically excoriated perineum and legs HEENT: NCAT, PERRL Lungs: clear Cardiac: S1S2 regular Abdomen: soft, obese, NT, ND, +BS Extremities: chronic changes of her pyoderma Neuro: A&O, grossly non-focal Fluid Balance (Past 24 Hours): I= O= Net Intake & Output 12/22/19 12/23/19 12/24/19 12/25/19 06:59 06:59 06:59 06:59 Intake Total 1902 2867.5 570 Output Total 720 80 Balance 1902 2147.5 490 Weight 85.094 kg 87.8 kg Intake: IV Fluids 1491 2362 NS (0.9%) 1320 1970 Protonix 171 392 IVPB 74 ABX 47 NS (0.9%) 27 Medicated IV 1 129.5 CC - Norepinephrine/ 1 129.5 Levophed Oral 410 0 570 Packed Cells 302 Output: Casanova 720 80 Other: Estimated Void Medium # Bowel Movements 3 1 Estimated Stool Amount Large Large # Voids 1 Labs: Laboratory Results - last 24 hr 12/23/19 12/23/19 12/23/19 04:14 04:14 12:23 WBC RBC Hgb 8.3 L Hct 25 L MCV MCH MCHC RDW Plt Count MPV Neut % (Auto) Lymph % (Auto) Baca % (Auto) Eos % (Auto) Baso % (Auto) Absolute Neuts (auto) Absolute Lymphs (auto) Absolute Monos (auto) Absolute Eos (auto) Absolute Basos (auto) Absolute Nucleated RBC Nucleated RBC % Sodium 135 Potassium 4.5 Chloride 109 Carbon Dioxide 21 L Anion Gap 5 BUN 58 H Creatinine 1.11 H Est GFR ( Amer) 57.4 Est GFR (Non-Af Amer) 47.4 BUN/Creatinine Ratio 52.3 H Glucose 156 H Calcium 7.5 L Ionized Calcium Phosphorus Magnesium 1.6 L Total Bilirubin AST ALT Alkaline Phosphatase Troponin I 0.03 H* Total Protein Albumin Globulin Albumin/Globulin Ratio Prealbumin 16 L TSH 1.67 Urine Color Urine Appearance Urine pH Ur Specific Ryan Urine Protein Urine Ketones Urine Blood Urine Nitrate Urine Bilirubin Urine Urobilinogen Ur Leukocyte Esterase Urine WBC (Auto) Urine RBC (Auto) Ur Squamous Epith Cells Ur Transition Epith Cell Urine Bacteria Urine Glucose Blood Type O Negative Antibody Screen Negative Crossmatch See Detail 12/23/19 12/23/19 12/23/19 12:23 12:46 17:08 WBC RBC Hgb 8.0 L Hct 24 L MCV MCH MCHC RDW Plt Count MPV Neut % (Auto) Lymph % (Auto) Baca % (Auto) Eos % (Auto) Baso % (Auto) Absolute Neuts (auto) Absolute Lymphs (auto) Absolute Monos (auto) Absolute Eos (auto) Absolute Basos (auto) Absolute Nucleated RBC Nucleated RBC % Sodium Potassium Chloride Carbon Dioxide Anion Gap BUN Creatinine Est GFR ( Amer) Est GFR (Non-Af Amer) BUN/Creatinine Ratio Glucose Calcium Ionized Calcium Phosphorus Magnesium Total Bilirubin AST ALT Alkaline Phosphatase Troponin I 0.04 H* Total Protein Albumin Globulin Albumin/Globulin Ratio Prealbumin TSH Urine Color Yanna Urine Appearance Turbid Urine pH 7.0 Ur Specific Ryan 1.020 Urine Protein 1+(30 mg/dl) A Urine Ketones Negative Urine Blood 2+ A Urine Nitrate Positive A Urine Bilirubin Negative Urine Urobilinogen Negative Ur Leukocyte Esterase 3+ A Urine WBC (Auto) 3+(>20/hpf) A Urine RBC (Auto) 3+(>10/hpf) A Ur Squamous Epith Cells Present A Ur Transition Epith Cell Present A Urine Bacteria 1+ A Urine Glucose Negative Blood Type Antibody Screen Crossmatch 12/23/19 12/24/19 12/24/19 21:28 03:58 03:58 WBC 17.7 H RBC 2.84 L Hgb 7.5 L 8.1 L Hct 23 L 24 L MCV 86 MCH 29 MCHC 34 RDW 16 H Plt Count 158 MPV 7.2 L Neut % (Auto) 93.7 Lymph % (Auto) 4.0 Baca % (Auto) 2.2 Eos % (Auto) 0.0 Baso % (Auto) 0.1 Absolute Neuts (auto) 16.6 H Absolute Lymphs (auto) 0.7 L Absolute Monos (auto) 0.4 Absolute Eos (auto) 0.0 Absolute Basos (auto) 0.0 Absolute Nucleated RBC 0.1 Nucleated RBC % 0.6 Sodium 138 Potassium 4.2 Chloride 116 H Carbon Dioxide 18 L Anion Gap 4 BUN 44 H Creatinine 0.80 Est GFR ( Amer) 83.7 Est GFR (Non-Af Amer) 69.2 BUN/Creatinine Ratio 55.0 H Glucose 150 H Calcium 6.8 L Ionized Calcium Phosphorus 2.3 L Magnesium 1.9 Total Bilirubin 0.40 AST 13 ALT 17 Alkaline Phosphatase 52 Troponin I 0.01 Total Protein 3.7 L Albumin 2.0 L Globulin 1.7 L Albumin/Globulin Ratio 1.2 Prealbumin TSH Urine Color Urine Appearance Urine pH Ur Specific Ryan Urine Protein Urine Ketones Urine Blood Urine Nitrate Urine Bilirubin Urine Urobilinogen Ur Leukocyte Esterase Urine WBC (Auto) Urine RBC (Auto) Ur Squamous Epith Cells Ur Transition Epith Cell Urine Bacteria Urine Glucose Blood Type Antibody Screen Crossmatch 12/24/19 03:58 WBC RBC Hgb Hct MCV MCH MCHC RDW Plt Count MPV Neut % (Auto) Lymph % (Auto) Baca % (Auto) Eos % (Auto) Baso % (Auto) Absolute Neuts (auto) Absolute Lymphs (auto) Absolute Monos (auto) Absolute Eos (auto) Absolute Basos (auto) Absolute Nucleated RBC Nucleated RBC % Sodium Potassium Chloride Carbon Dioxide Anion Gap BUN Creatinine Est GFR ( Amer) Est GFR (Non-Af Amer) BUN/Creatinine Ratio Glucose Calcium Ionized Calcium 1.07 L Phosphorus Magnesium Total Bilirubin AST ALT Alkaline Phosphatase Troponin I Total Protein Albumin Globulin Albumin/Globulin Ratio Prealbumin TSH Urine Color Urine Appearance Urine pH Ur Specific Ryan Urine Protein Urine Ketones Urine Blood Urine Nitrate Urine Bilirubin Urine Urobilinogen Ur Leukocyte Esterase Urine WBC (Auto) Urine RBC (Auto) Ur Squamous Epith Cells Ur Transition Epith Cell Urine Bacteria Urine Glucose Blood Type Antibody Screen Crossmatch Nutrition: Full liquids Impression: Hypovolemic Shock and Acute Bloodloss Anemia secondary to bleeding duodenal ulcers Plan: Hypovolemic Shock and Acute Bloodloss Anemia - secondary to bleeding duodenal ulcers. Has received 4 units PRBC and BP better overall but still on and off low dose levophed at 2mcg/min. Bradycardia resolved. Saturating 100% with RR in teens and no dyspnea on 3L oxygen. EGD yesterday uneventful and showed the duodenal ulcers not actively bleeding at that time. INR normal and platelets adequate. Cutting steroid dose in half. Hgb holding around 8. Change frequency to Q12H. Continue protonix gtt. NATY resolving. Troponemia - EKG with non-specific changes and not grossly ischemic allowing for lead placement. Very trivial troponins despite the HoTN and no anginal equivalents. Continue lipitor and treat the source of any demand ischemia, in this case, bleeding, as we are doing with PPI gtt and transfusion. Hypothyroidism - continue synthroid Hyperlipidemia -continue lipitor. OOB today, PT. Wound care for her legs and perineum. D/W pt at bedside who voiced understanding and appreciation for the care. critical care time 30 minutes
[2019-12-24] MEDS: Acetaminophen TAB* 325 MG PO PRN (15:06)
[2019-12-24] MEDS: cefTRIAXone(*) 1 GM in NS 0.9% 50 ML* 50 ML IVPB SCH (17:34)
[2019-12-24] MEDS ORDERED: Pantoprazole* 80 mg IN NS 80 MG/250 ML BAG IV SCH (18:00)
[2019-12-24 18:52] LABS: Hematocrit 19 % (35-47); Hemoglobin 6.4 g/dL (12.0-16.0); Mean Corpuscular HGB Conc 34 g/dL (31-36); Mean Corpuscular Hemoglobin 29 pg (27-31); Mean Corpuscular Volume 86 fL (80-97); Platelet Count 150 10^3/uL (150-450); Red Blood Count 2.19 10^6 /uL (3.70-4.87); Red Cell Distribution Width 16 % (10-15); White Blood Count 17.4 10^3/uL (3.5-10.8)
[2019-12-25] MEDS ORDERED: hydrALAZINE TAB* 25 MG PO ONE (00:48)
[2019-12-25 04:42] LABS: Hematocrit 18 % (35-47); Hemoglobin 6.1 g/dL (12.0-16.0); Mean Corpuscular HGB Conc 34 g/dL (31-36); Mean Corpuscular Hemoglobin 29 pg (27-31); Mean Corpuscular Volume 87 fL (80-97); Mean Platelet Volume 7.4 fL (7.4-10.4); Platelet Count 120 10^3/uL (150-450); Red Blood Count 2.08 10^6 /uL (3.70-4.87); Red Cell Distribution Width 16 % (10-15); White Blood Count 13.1 10^3/uL (3.5-10.8)
[2019-12-25] MEDS: Pantoprazole* 80 mg IN NS 80 MG/250 ML BAG IV SCH ×3 (04:51→23:49)
[2019-12-25 04:56] LABS: Albumin/Globulin Ratio 1.2 (1-3); Calcium 7.1 mg/dL (8.6-10.3); EGFR African American 83.7 (>60); EGFR Non-African American 69.2 (>60); Globulin 1.7 g/dL (2-4); Magnesium 1.8 mg/dL (1.9-2.7); Phosphorus 1.9 mg/dL (2.5-5.0); Potassium 3.7 mmol/L (3.5-5.0); Total Bilirubin 0.3 mg/dL (0.2-1.0); Total Protein 3.7 g/dL (6.4-8.9)
[2019-12-25] MEDS: Hydrocortisone INJ* 100 MG/2 ML VIAL (in pyxis) IV SCH ×3 (05:16→18:18)
[2019-12-25] MEDS: Levothyroxine TAB* 100 MCG TAB PO SCH (05:17)
[2019-12-25] MEDS: NS 0.9% 1000 ML** 1,000 ML IV SCH ×2 (05:56→23:50)
[2019-12-25] MEDS ORDERED: Magnesium Sulfate 1 GM IV* 1 GM/100 ML BAG IV ONE (06:00)
[2019-12-25] MEDS: Nystatin SUSPENSION* 100000 UNITS/ML 5 ML UDC PO SCH ×4 (09:22→21:32)
[2019-12-25] MEDS: Loperamide CAP* 2 MG PO SCH (09:22)
[2019-12-25] MEDS: oxyCODONE/Acetamin 5/325 MG* TAB PO PRN ×3 (09:22→21:32)
[2019-12-25] MEDS: hydrOXYzine HCL TAB* 10 MG PO SCH (09:22)
[2019-12-25] MEDS: Nystatin TOP POWDER* 15 GM BTL TOPICAL SCH ×3 (09:22→21:33)
[2019-12-25 09:29] LABS: Hematocrit 20 % (35-47); Hemoglobin 6.8 g/dL (12.0-16.0); Mean Corpuscular HGB Conc 34 g/dL (31-36); Mean Corpuscular Hemoglobin 29 pg (27-31); Mean Corpuscular Volume 86 fL (80-97); Mean Platelet Volume 6.9 fL (7.4-10.4); Platelet Count 109 10^3/uL (150-450); Red Blood Count 2.32 10^6 /uL (3.70-4.87); Red Cell Distribution Width 16 % (10-15); White Blood Count 11.9 10^3/uL (3.5-10.8)
--- NOTE | 2019-12-25 10:24 | PN ---
Date of Service: 12/25/19 Critical Care Services: More bleeding overnight, for EGD today. Vital Signs: Temp Pulse Resp BP SpO2 FiO2 35.5 C 68 26 139/75 99 12/25/19 07:30 12/25/19 07:30 12/25/19 09:22 12/25/19 07:30 12/25/19 07:30 Physical Exam: Gen: no new complaints, appears non-toxic HEENT: NCAT, PERRL Lungs: clear Cardiac: S1S2 regular Abdomen: soft, NT, ND, +BS Extremities: stable pyoderma changes and excoriations bilat LE extending into the perineum Neuro: grossly intact Fluid Balance (Past 24 Hours): I= O= Net Intake & Output 12/23/19 12/24/19 12/25/19 12/26/19 06:59 06:59 06:59 06:59 Intake Total 1902 4897.5 5693 Output Total 720 730 Balance 1902 4177.5 4963 Weight 85.094 kg 87.8 kg 91.2 kg Intake: IV Fluids 1491 4344 2521 NS (0.9%) 1320 3623 2056 Protonix 171 721 465 IVPB 74 191 ABX 47 66 Ca gluconate 125 NS (0.9%) 27 Medicated IV 1 177.5 CC - Norepinephrine/ 1 177.5 Levophed Oral 410 0 2730 Packed Cells 302 251 Output: Casanova 720 730 Other: Estimated Void Medium Date of Last Bowel 12/25/19 Movement # Bowel Movements 3 1 2 Estimated Stool Amount Large Large Large # Voids 1 Labs: Laboratory Results - last 24 hr 12/23/19 12/24/19 12/24/19 04:14 18:30 22:39 WBC 17.4 H RBC 2.19 L Hgb 6.4 L* Hct 19 L MCV 86 MCH 29 MCHC 34 RDW 16 H Plt Count 150 MPV 7.0 L Sodium Potassium Chloride Carbon Dioxide Anion Gap BUN Creatinine Est GFR ( Amer) Est GFR (Non-Af Amer) BUN/Creatinine Ratio Glucose Calcium Ionized Calcium Phosphorus Magnesium Total Bilirubin AST ALT Alkaline Phosphatase Total Protein Albumin Globulin Albumin/Globulin Ratio Blood Type O Negative Antibody Screen Negative Crossmatch See Detail Transfusion React Rpt Donor Unit # [id number] Post-Trans Blood Type O Negative Post-Trans DOROTA Negative Reaction Interpretation 12/25/19 12/25/19 12/25/19 04:10 04:10 04:10 WBC 13.1 H RBC 2.08 L Hgb 6.1 L* Hct 18 L MCV 87 MCH 29 MCHC 34 RDW 16 H Plt Count 120 L MPV 7.4 Sodium 140 Potassium 3.7 Chloride 118 H Carbon Dioxide 17 L Anion Gap 5 BUN 36 H Creatinine 0.80 Est GFR ( Amer) 83.7 Est GFR (Non-Af Amer) 69.2 BUN/Creatinine Ratio 45.0 H Glucose 145 H Calcium 7.1 L Ionized Calcium 1.11 L Phosphorus 1.9 L Magnesium 1.8 L Total Bilirubin 0.30 AST 28 ALT 29 Alkaline Phosphatase 65 Total Protein 3.7 L Albumin 2.0 L Globulin 1.7 L Albumin/Globulin Ratio 1.2 Blood Type Antibody Screen Crossmatch Transfusion React Rpt Donor Unit # Post-Trans Blood Type Post-Trans DOROTA Reaction Interpretation 12/25/19 12/25/19 04:10 09:15 WBC 11.9 H RBC 2.32 L Hgb 6.8 L Hct 20 L MCV 86 MCH 29 MCHC 34 RDW 16 H Plt Count 109 L MPV 6.9 L Sodium Potassium Chloride Carbon Dioxide Anion Gap BUN Creatinine Est GFR ( Amer) Est GFR (Non-Af Amer) BUN/Creatinine Ratio Glucose Calcium Ionized Calcium Phosphorus Magnesium Total Bilirubin AST ALT Alkaline Phosphatase Total Protein Albumin Globulin Albumin/Globulin Ratio Blood Type Antibody Screen Crossmatch Transfusion React Rpt Donor Unit # =[id number] Post-Trans Blood Type Post-Trans DOROTA Negative Reaction Interpretation Nutrition: NPO EGD pending Impression: Hypovolemic Shock and Acute Bloodloss Anemia secondary to bleeding duodenal ulcers recurrent overnight Plan: Hypovolemic Shock and Acute Bloodloss Anemia - secondary to bleeding duodenal ulcers which seems recurrent overnight last night. Has received 6 units PRBC and 1 unit FFP. BP is vastly improved and she is off levophed. Bradycardia resolved. Saturating 100% with RR in teens and no dyspnea on 3L oxygen. EGD planned again for today. INR normal at last check and platelets falling daily, now at 109. Will give 1 unit platelets which will also give her another FFP and then check recheck coags. Cutting steroid dose in half again today for SBP now 160s steadily. Hgb in 6-7 range. Continue protonix gtt. NATY resolving. Troponemia - EKG with non-specific changes and not grossly ischemic allowing for lead placement. Very trivial troponins despite the HoTN and no anginal equivalents. Continue lipitor and treat the source of any demand ischemia, in this case, bleeding, as we are doing with PPI gtt and transfusion. Troponins have now returned to normal. Hypothyroidism - continue synthroid Hyperlipidemia -continue lipitor. Repleting multiple electrolytes for hypocalcemia, hypophosphatemia and hypomagnesemia. D/W pt at bedside who voiced understanding and appreciation for the care. Critical Care Time: 35 minutes
[2019-12-25] MEDS ORDERED: Calcium Gluconate INJ* 2 GM in NS 0.9% 100 ML* 100 ML IV ONE (10:36)
[2019-12-25] MEDS ORDERED: Potassium Phosphate IV* 15 MMOLE in NS 0.9% 250 ML* 250 ML IVPB ONE (10:36)
[2019-12-25] MEDS ORDERED: Magnesium Sulfate 2 GM IV* 2 GM/50 ML BAG IVPB ONE (10:36)
[2019-12-25] MEDS ORDERED: Midazolam* 1 MG/ML 10 ML VIAL (10 MG) ONE (13:52)
[2019-12-25] MEDS ORDERED: fentaNYL* 50 MCG/ML 2 ML VIAL (100 MCG VIAL) ONE (13:52)
[2019-12-25] MEDS ORDERED: EPINEPHrine SYR 0.1MG/ML* SYRINGE ONE (15:15)
[2019-12-25] MEDS: cefTRIAXone(*) 1 GM in NS 0.9% 50 ML* 50 ML IVPB SCH (18:18)
[2019-12-25 20:37] LABS: Hematocrit 22 % (35-47); Hemoglobin 7.5 g/dL (12.0-16.0); Mean Corpuscular HGB Conc 34 g/dL (31-36); Mean Corpuscular Hemoglobin 29 pg (27-31); Mean Corpuscular Volume 86 fL (80-97); Mean Platelet Volume 7.2 fL (7.4-10.4); Platelet Count 146 10^3/uL (150-450); Red Blood Count 2.59 10^6 /uL (3.70-4.87); Red Cell Distribution Width 16 % (10-15); White Blood Count 13.9 10^3/uL (3.5-10.8)
[2019-12-25 20:43] LABS: INR 1.06 (0.82-1.09)
[2019-12-25] MEDS: Atorvastatin* 10 MG TAB PO SCH (21:33)
[2019-12-26] MEDS: Hydrocortisone INJ* 100 MG/2 ML VIAL (in pyxis) IV SCH ×3 (03:21→17:29)
[2019-12-26] MEDS: oxyCODONE/Acetamin 5/325 MG* TAB PO PRN ×3 (03:48→20:41)
--- NOTE | 2019-12-26 03:57 | PRO ---
CC: Dr. Dawood Hager* EGD REPORT: DATE OF PROCEDURE: 12/25/19 INDICATION FOR PROCEDURE: Melena, acute blood loss anemia. PROCEDURE PERFORMED: Complete esophagogastroduodenoscopy with EndoClip placement treatment with epinephrine and BICAP cautery therapy of ulcerations. MEDICATIONS GIVEN: Include: 1. 3.5 mg IV midazolam. 2. 25 mcg IV fentanyl. DESCRIPTION OF PROCEDURE: After the EGD procedure, including the risks, benefits, and alternatives with the risks not limited to perforation, surgery, missed lesions, and/or were explained to the patient, written informed consent was obtained, IV medication was given, and a bite block was placed between the teeth. The adult Olympus gastroscope was then inserted into the patient's oropharynx into the tubular esophagus. The tubular esophagus was essentially unremarkable. The scope was then advanced through the lower esophageal sphincter into the stomach. No fresh or old blood was seen. On both antegrade and retroflexion, the views were unremarkable except for a few prior old scars within the antrum. The scope was then advanced through the widely patent pylorus into the duodenal bulb. Immediately at the 6 o'clock and 12 o' clock positions were 2 large ulcerations. At the 6 o'clock position, a deep ulceration was noted. There was no fresh or old blood. I did not find a specific high-risk vessel; however, the depth of the ulcer was concerning. I injected epinephrine around this ulcer and also to the ulcer at the 12 o'clock position. This did have a red spot that was on the fringe of the deep portion of the ulcer. I injected epinephrine around this area as well. I then cauterized the entirety of both ulcers with BICAP at 25 sepulveda with good effect. There was no bleeding after treatment. Given the slightly higher risk stigmata of the ulcer at 12 o'clock with the red spot, I did place 3 clips over this area, the first 2 did not have fantastic approximation; however, the third clip had good approximation over this red spot. At the conclusion of the procedure, no evidence of fresh or old blood was seen. The scope was then removed from the patient. She tolerated the procedure well. A total of 5 mL of 1:10,000 epinephrine was injected in the ulcers. She remained in the ICU in serious condition. IMPRESSION: 1. Complete esophagogastroduodenoscopy with endoscopic treatment of 2 ulcerations as above. 2. EndoClip placement x3 as above. 3. At conclusion of exam, no fresh or old blood. 4. Endoscopic treatment with BICAP and epinephrine with good effect. RECOMMENDATIONS: Continue IV PPI, these are 2 high-risk ulcerations given the depth and the red spot that was visualized today. At the conclusion of the procedure, I do not notice any evidence of active bleeding. Would monitor the hemoglobin and hematocrit. Her blood pressure was vastly improved. I would continue the IV PPI drip for at least another 72 hours. Continue to monitor H and Hs q.6 hours and keep the patient in the ICU at least for this evening. We will place her on clear liquids today, may advance diet if hemoglobin stable tomorrow to full liquids. If she has evidence of ongoing overt blood loss, may need consideration for IR embolization versus surgery. Give comorbidities, IR embolization may be preferred. [id number]/CPS #: [id number] BARBARA
[2019-12-26] MEDS: Levothyroxine TAB* 100 MCG TAB PO SCH (05:27)
[2019-12-26 05:57] LABS: Albumin/Globulin Ratio 1.3 (1-3); BUN/Creatinine Ratio 30.2 (8-20); Calcium 7.3 mg/dL (8.6-10.3); EGFR Non-African American 63.7 (>60); Globulin 1.6 g/dL (2-4); Magnesium 2.3 mg/dL (1.9-2.7); Phosphorus 2.5 mg/dL (2.5-5.0); Potassium 3.6 mmol/L (3.5-5.0); Total Bilirubin 0.3 mg/dL (0.2-1.0); Total Protein 3.6 g/dL (6.4-8.9)
[2019-12-26 07:36] LABS: Hematocrit 21 % (35-47); Hemoglobin 7.2 g/dL (12.0-16.0); Mean Corpuscular HGB Conc 34 g/dL (31-36); Mean Corpuscular Hemoglobin 30 pg (27-31); Mean Corpuscular Volume 87 fL (80-97); Mean Platelet Volume 7.5 fL (7.4-10.4); Platelet Count 140 10^3/uL (150-450); Red Blood Count 2.42 10^6 /uL (3.70-4.87); Red Cell Distribution Width 16 % (10-15); White Blood Count 9.7 10^3/uL (3.5-10.8)
[2019-12-26] MEDS: Nystatin SUSPENSION* 100000 UNITS/ML 5 ML UDC PO SCH ×4 (08:07→20:41)
[2019-12-26] MEDS: Loperamide CAP* 2 MG PO SCH (08:07)
[2019-12-26] MEDS: Nystatin TOP POWDER* 15 GM BTL TOPICAL SCH ×3 (08:07→20:41)
[2019-12-26] MEDS: hydrOXYzine HCL TAB* 10 MG PO SCH (08:07)
[2019-12-26] MEDS: NS 0.9% 1000 ML** 1,000 ML IV SCH (08:54)
[2019-12-26] MEDS: Pantoprazole* 80 mg IN NS 80 MG/250 ML BAG IV SCH ×2 (09:35→20:17)
[2019-12-26] MEDS ORDERED: Furosemide IV* 10 MG/ML VIAL (40 MG) IV ONE (10:52)
[2019-12-26 11:36] LABS: Hematocrit 23 % (35-47); Hemoglobin 7.9 g/dL (12.0-16.0); Mean Corpuscular HGB Conc 34 g/dL (31-36); Mean Corpuscular Hemoglobin 30 pg (27-31); Mean Corpuscular Volume 86 fL (80-97); Platelet Count 145 10^3/uL (150-450); Red Blood Count 2.69 10^6 /uL (3.70-4.87); Red Cell Distribution Width 16 % (10-15); White Blood Count 10.5 10^3/uL (3.5-10.8)
--- NOTE | 2019-12-26 14:26 | PN ---
Date of Service: 12/26/19 Critical Care Services: Patient seen and examined. two additional bloody BMs overnight and this AM after EGD yesterday. Denies abdominal pain. No n/v. No fevers or chills. Receiving additional unit of blood this am. Vital Signs: Temp Pulse Resp BP SpO2 FiO2 97.2 F 53 21 159/66 98 12/26/19 13:02 12/26/19 13:02 12/26/19 13:02 12/26/19 13:02 12/26/19 13:02 Physical Exam: General: Alert, NAD HEENT: Normocephalic, atraumatic, non-icteric sclera, moist oral mucosa Neck: soft, supple, no JVD CV: Regular rate and rhythm, no murmurs or rubs Pulm/Chest: Good bilateral air entry, no rhonchi or rales, no wheeze Abdomen/GI: soft, nontender, nondistended, +BS noted MSK/Skin: cool, edematous with areas of weeping, bilateral LE non-healing wounds with regions of excoriation, sacral wounds not visualized Neuro: A&Ox2, sometimes forgetful, no gross focalities Psych: Appropriate affect and mood Fluid Balance (Past 24 Hours): Intake & Output 12/24/19 12/25/19 12/26/19 12/27/19 06:59 06:59 06:59 06:59 Intake Total 4897.5 5693 3859 0 Output Total 720 596 734 0273 Balance 4177.5 4963 3041 -2150 Weight 193 lb 9.054 oz 201 lb 0.985 oz 219 lb 12.814 oz Intake: IV Fluids 4344 2521 2966 NS (0.9%) 3623 2056 2444 Protonix 721 465 522 IVPB 74 191 173 ABX 47 66 Ca gluconate 125 115 NS (0.9%) 27 magnesium sulfate 58 Medicated IV 177.5 CC - Norepinephrine/ 177.5 Levophed Oral 0 2730 720 0 Packed Cells 302 251 Output: Casanova 720 140 697 0073 Other: Date of Last Bowel 12/25/19 12/25/2019 Movement # Bowel Movements 1 2 1 Estimated Stool Amount Large Large Small Labs: Laboratory Results - last 24 hr 12/23/19 12/25/19 12/25/19 04:14 10:32 20:22 WBC 13.9 H RBC 2.59 L Hgb 7.5 L Hct 22 L MCV 86 MCH 29 MCHC 34 RDW 16 H Plt Count 146 L MPV 7.2 L INR (Anticoag Therapy) Sodium Potassium Chloride Carbon Dioxide Anion Gap BUN Creatinine Est GFR ( Amer) Est GFR (Non-Af Amer) BUN/Creatinine Ratio Glucose Calcium Ionized Calcium Phosphorus Magnesium Total Bilirubin AST ALT Alkaline Phosphatase Total Protein Albumin Globulin Albumin/Globulin Ratio Blood Type O Negative Antibody Screen Negative Crossmatch See Detail See Detail 12/25/19 12/26/19 12/26/19 20:22 05:24 05:24 WBC RBC Hgb Hct MCV MCH MCHC RDW Plt Count MPV INR (Anticoag Therapy) 1.06 Sodium 142 Potassium 3.6 Chloride 120 H Carbon Dioxide 19 L Anion Gap 3 BUN 26 H Creatinine 0.86 Est GFR ( Amer) 77.0 Est GFR (Non-Af Amer) 63.7 BUN/Creatinine Ratio 30.2 H Glucose 100 Calcium 7.3 L Ionized Calcium 1.19 Phosphorus 2.5 Magnesium 2.3 Total Bilirubin 0.30 AST 55 H ALT 66 H Alkaline Phosphatase 80 Total Protein 3.6 L Albumin 2.0 L Globulin 1.6 L Albumin/Globulin Ratio 1.3 Blood Type Antibody Screen Crossmatch 12/26/19 12/26/19 12/26/19 05:24 05:24 11:24 WBC 9.7 10.5 RBC 2.42 L 2.69 L Hgb 7.2 L 7.9 L Hct 21 L 23 L MCV 87 86 MCH 30 30 MCHC 34 34 RDW 16 H 16 H Plt Count 140 L 145 L MPV 7.5 7.0 L INR (Anticoag Therapy) Sodium Potassium Chloride Carbon Dioxide Anion Gap BUN Creatinine Est GFR ( Amer) Est GFR (Non-Af Amer) BUN/Creatinine Ratio Glucose Calcium Ionized Calcium Phosphorus Magnesium Total Bilirubin AST ALT Alkaline Phosphatase Total Protein Albumin Globulin Albumin/Globulin Ratio Blood Type O Negative Antibody Screen Negative Crossmatch See Detail Studies: Patient Name: BERTHA WHEELER Medical Record#: [id number] Ordering Physician: Darell Riddle MD Acct.#: [id number] : 1940 Age: 79 Sex: F Location: EMERGENCY DEPARTMENT Exam Date: 12/22/19 1034 ADM Status: REG ER Order Information: CT ABD/PEL W/O Accession Number: [id number] CPT: 52623 Indication: Abdominal pain. CT of the abdomen and pelvis was performed without oral or IV contrast administration. Coronal and sagittal reconstructed images were obtained. Reformatted The lung bases demonstrate no pleural fluid, nodules or masses. Heart and straight no pericardial effusion. Liver is normal in size. No focal lesions or intrahepatic duct dilatation is noted. Patient is status post cholecystectomy. The spleen is normal in size. The pancreas demonstrates no mass or pancreatic duct dilatation. There is a right adrenal mass measuring up to 3.2 x 2.2 cm. This has a Hounsfield unit reading of 38. There is also left adrenal hyperplasia. The right adrenal mass appears to BE increased in size since September 10, 2014 and neoplastic lesion should be considered. The spleen is normal in size. The kidneys demonstrate no hydronephrosis. Parapelvic cyst measures up to 2.3 cm in the right kidney. Aorta and inferior vena cava are unremarkable. No dilated loops of bowel are noted. The colon is filled with stool. CT of the pelvis demonstrates no retroperitoneal or pelvic lymphadenopathy. Urinary bladder is unremarkable. Anterior abdominal wall hernia periumbilical in nature containing omentum is noted. No free fluid is identified. IMPRESSION: No evidence of obstructive uropathy is noted. 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 This is new since previous exam of September 10, 2014 and neoplastic process including metastatic disease should BE considered. Parapelvic cyst is noted in the right kidney with no hydronephrosis. No obstructive uropathy is noted. Periumbilical hernia containing omentum is noted. Patient Name: BERTHA WHEELER Medical Record#: [id number] Ordering Physician: Osbaldo Deshpande [employer] OPERATOR Acct.#: [id number] : 1940 Age: 79 Sex: F Location: INTENSIVE CARE UNIT Exam Date: 12/23/19 0600 ADM Status: ADM IN Order Information: CHEST AP/PORT Accession Number: [id number] CPT: 16607 HISTORY: ? PTX, COMPARISONS: December 23, 2019 VIEWS: 1: frontal AP view of the chest at 4:16 AM FINDINGS: LINES AND TUBES: None. CARDIOMEDIASTINAL SILHOUETTE: The cardiomediastinal silhouette is normal for portable technique. PLEURA: The costophrenic angles are sharp. No pleural abnormalities are noted. There is no appreciable pneumothorax. LUNG PARENCHYMA: The lungs are clear. ABDOMEN: The upper abdomen is clear. There is no subphrenic gas. BONES AND SOFT TISSUES: No bone or soft tissue abnormalities are noted. IMPRESSION: NO ACTIVE CARDIOPULMONARY DISEASE. Nutrition: Clears Impression: This is a 79 year old female with history of RA, chronic leg wounds and chronic steroid use that presented with reports of fatigue, nausea and bloody stools admitted with hypotension and GIB. Diagnoses: 1. Hypovolemic Shock 2/2 Acute Blood Loss Anemia 2. Upper GI bleeding 3. Troponinemia 4. Electrolyte and Metabolic Derangement 5. 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 - Will give lasix today and continue to monitor volume status - Bradycardia resolved - Trops elevated in the presence of demand ischemia and shock/bleeding, now resolving. No anginal equivalents noted Pulm - 3L NC with sats in 90s ID - Proteus in the urine, responsive to ceftriaxone, day 3 GI - s/p EGD 12/23 and 12/24, for large areas of ulceration noted - Treated with epi injections and clips on 12/24 after additional drop in H&H and further maroon stools overnight on 12/23 - Two additional melena stools overnight and this morning - Continue protonix drip - Continue tapering off steroids, go to Q12h this evening; no NSAIDs - Discussed case with surgery, patient is essentially stable at this time, no indication for urgent/emergent intervention, may benefit from IR if she continues to bleed but remains hemodynamically stable. Call out to Dr. Brown to discuss. May need to be transferred if she continues to bleed and she is not a candidate for IR. Renal- - Strict I/O, replete to keep K>4, Mg>2 - Fluid positive 3L, lasix 40mg IV and continue to follow output - Casanova - Replete and optimize lytes while nutrition is compromised Heme - H&H Q6h - s/p 7units PRBCs and 2 units FFP, continue to monitor stools for additional bleeding - PLTS stable Endo - Maintain BG<200, insulin protocol as needed Musculsk/Skin - Wound care as per Cecilia Skinner, [employer] OPERATOR - Offloading, T&P Q2h - OOB to chair - Pain control with percocet and tylenol DVT prophylaxis: Cannot have chemoprophylaxis 2/2 bleeding and cannot have SCDs 2/2 pyoderma/wounds. Patient remains extremely high risk for DVT GI prophylaxis: protonix gtt Lines: Right femoral Disposition: Patient requires Critical Care/ICU for critical hemodynamic monitoring of GI bleed Patient clinical status: Guarded Code Status: Full Total Critical Care time is 40 minutes
[2019-12-26] MEDS: cefTRIAXone(*) 1 GM in NS 0.9% 50 ML* 50 ML IVPB SCH (17:29)
[2019-12-26 17:33] LABS: Hematocrit 28 % (35-47); Hemoglobin 9.2 g/dL (12.0-16.0); Mean Corpuscular HGB Conc 34 g/dL (31-36); Mean Corpuscular Hemoglobin 29 pg (27-31); Mean Corpuscular Volume 87 fL (80-97); Platelet Count 159 10^3/uL (150-450); Red Blood Count 3.16 10^6 /uL (3.70-4.87); Red Cell Distribution Width 16 % (10-15); White Blood Count 10.4 10^3/uL (3.5-10.8)
[2019-12-26] MEDS: Atorvastatin* 10 MG TAB PO SCH (20:41)
[2019-12-26] MEDS ORDERED: hydrALAZINE TAB* 25 MG PO ONE (22:19)
[2019-12-26 23:07] LABS: Hematocrit 27 % (35-47); Mean Corpuscular HGB Conc 34 g/dL (31-36); Mean Corpuscular Hemoglobin 29 pg (27-31); Mean Corpuscular Volume 87 fL (80-97); Mean Platelet Volume 6.6 fL (7.4-10.4); Platelet Count 148 10^3/uL (150-450); Red Blood Count 3.07 10^6 /uL (3.70-4.87); Red Cell Distribution Width 16 % (10-15); White Blood Count 10.8 10^3/uL (3.5-10.8)
[2019-12-27] MEDS: Melatonin 3 MG TAB PO PRN ×2 (01:08→23:47)
[2019-12-27 04:26] LABS: Hematocrit 26 % (35-47); Hemoglobin 8.7 g/dL (12.0-16.0); Mean Corpuscular HGB Conc 34 g/dL (31-36); Mean Corpuscular Hemoglobin 30 pg (27-31); Mean Corpuscular Volume 87 fL (80-97); Mean Platelet Volume 6.8 fL (7.4-10.4); Platelet Count 152 10^3/uL (150-450); Red Blood Count 2.96 10^6 /uL (3.70-4.87); Red Cell Distribution Width 16 % (10-15); White Blood Count 10.4 10^3/uL (3.5-10.8)
[2019-12-27 04:46] LABS: BUN/Creatinine Ratio 27.1 (8-20); Calcium 7.2 mg/dL (8.6-10.3); EGFR African American 78.1 (>60); EGFR Non-African American 64.5 (>60); Potassium 3.2 mmol/L (3.5-5.0)
[2019-12-27 05:00] LABS: Microcytosis 1+; Polychromasia 1+
[2019-12-27] MEDS: Pantoprazole* 80 mg IN NS 80 MG/250 ML BAG IV SCH ×2 (05:02→16:29)
[2019-12-27] MEDS: Levothyroxine TAB* 100 MCG TAB PO SCH (05:02)
[2019-12-27] MEDS: Hydrocortisone INJ* 100 MG/2 ML VIAL (in pyxis) IV SCH ×2 (05:02→16:47)
[2019-12-27] MEDS: Potassium Chlor TAB* 20 MEQ TAB.ER PO SCH ×2 (05:43→09:33)
[2019-12-27] MEDS ORDERED: hydrALAZINE TAB* 25 MG PO PRN (06:04)
[2019-12-27] MEDS ORDERED: Furosemide IV* 10 MG/ML VIAL (40 MG) IV SLOW PU ONE ×2 (07:38→09:57)
[2019-12-27] MEDS: hydrALAZINE IV* 20 MG/ML VIAL IV SLOW PU PRN ×2 (08:06→11:40)
[2019-12-27] MEDS: Loperamide CAP* 2 MG PO SCH (08:07)
[2019-12-27] MEDS: hydrOXYzine HCL TAB* 10 MG PO SCH (08:07)
[2019-12-27] MEDS: Nystatin SUSPENSION* 100000 UNITS/ML 5 ML UDC PO SCH ×4 (08:08→20:10)
[2019-12-27] MEDS: Nystatin TOP POWDER* 15 GM BTL TOPICAL SCH ×3 (08:08→20:14)
--- NOTE | 2019-12-27 09:19 | PN ---
<Tiffanie Pacheco - Last Filed: 12/27/19 10:28> Progress Note - Progress Note Date of Service: 12/27/19 Note: Progress Note -- Critical Care 24 hour events/significant events: - Patient has been tolerating a clear liquid diet - No further episodes of significant melana - Remains fluid overloaded - Does endorse pain in her lower extremities and concerns over her high blood pressure. ROS: negative except for pertinent positives mentioned above Tele: Sinus filippo Vitals: Vital Signs 12/26/19 12/26/19 12/26/19 10:00 10:01 11:00 Temperature 97.2 F 97.2 F 97.2 F Pulse Rate 60 57 Respiratory 20 20 28 Rate Blood Pressure 152/63 (mmHg) O2 Sat by Pulse 98 98 Oximetry 12/26/19 12/26/19 12/26/19 11:16 11:52 12:00 Temperature 97.2 F 97.3 F 97.2 F Pulse Rate 61 51 Respiratory 24 17 14 Rate Blood Pressure 155/71 156/62 (mmHg) O2 Sat by Pulse 98 100 Oximetry 12/26/19 12/26/19 12/26/19 12:01 12:15 13:00 Temperature 97.2 F 97.3 F 97.2 F Pulse Rate 51 56 56 Respiratory 13 14 14 Rate Blood Pressure 134/56 139/59 (mmHg) O2 Sat by Pulse 100 98 97 Oximetry 12/26/19 12/26/19 12/26/19 13:02 14:00 14:02 Temperature 97.2 F 96.8 F 96.8 F Pulse Rate 53 68 66 Respiratory 21 23 23 Rate Blood Pressure 159/66 188/79 (mmHg) O2 Sat by Pulse 98 97 97 Oximetry 12/26/19 12/26/19 12/26/19 15:00 15:01 15:27 Temperature 97.3 F 97.3 F Pulse Rate 73 70 Respiratory 26 24 19 Rate Blood Pressure 158/69 (mmHg) O2 Sat by Pulse 98 98 Oximetry 12/26/19 12/26/19 12/26/19 15:45 16:00 16:01 Temperature 97.5 F 97.5 F 97.5 F Pulse Rate 70 67 70 Respiratory 25 19 29 Rate Blood Pressure 169/79 174/75 (mmHg) O2 Sat by Pulse 97 100 98 Oximetry 12/26/19 12/26/19 12/26/19 16:02 17:00 17:01 Temperature 97.5 F 97.9 F 97.9 F Pulse Rate 75 75 65 Respiratory 16 22 21 Rate Blood Pressure 177/70 170/65 (mmHg) O2 Sat by Pulse 99 99 98 Oximetry 12/26/19 12/26/19 12/26/19 18:00 18:02 18:57 Temperature 98.2 F 98.2 F 98.4 F Pulse Rate 72 75 76 Respiratory 21 18 21 Rate Blood Pressure 178/68 171/65 (mmHg) O2 Sat by Pulse 100 98 98 Oximetry 12/26/19 12/26/19 12/26/19 18:58 19:00 19:01 Temperature 98.4 F 98.4 F 98.4 F Pulse Rate 81 90 88 Respiratory 19 32 32 Rate Blood Pressure 165/92 164/78 (mmHg) O2 Sat by Pulse 97 97 96 Oximetry 12/26/19 12/26/19 12/26/19 20:00 20:01 20:11 Temperature 98.4 F 98.4 F 98.4 F Pulse Rate 75 70 76 Respiratory 24 22 24 Rate Blood Pressure 180/73 169/81 (mmHg) O2 Sat by Pulse 95 95 95 Oximetry 12/26/19 12/26/19 12/26/19 20:41 21:00 21:01 Temperature 98.4 F 98.4 F Pulse Rate 66 69 Respiratory 20 23 26 Rate Blood Pressure 178/83 (mmHg) O2 Sat by Pulse 96 96 Oximetry 12/26/19 12/26/19 12/26/19 22:00 22:02 22:04 Temperature 98.1 F 98.2 F 98.1 F Pulse Rate 78 89 72 Respiratory 27 21 23 Rate Blood Pressure 197/76 187/80 (mmHg) O2 Sat by Pulse 94 96 97 Oximetry 12/26/19 12/26/19 12/26/19 22:31 23:00 23:01 Temperature 98.1 F 98.1 F 98.1 F Pulse Rate 77 76 79 Respiratory 23 25 28 Rate Blood Pressure 169/84 166/66 (mmHg) O2 Sat by Pulse 97 96 97 Oximetry 12/26/19 12/26/19 12/27/19 23:18 23:31 00:00 Temperature 98.1 F 98.1 F 98.2 F Pulse Rate 67 72 62 Respiratory 27 28 18 Rate Blood Pressure 159/63 (mmHg) O2 Sat by Pulse 98 98 97 Oximetry 12/27/19 12/27/19 12/27/19 00:01 00:31 01:00 Temperature 98.2 F 98.2 F 98.1 F Pulse Rate 61 66 62 Respiratory 15 21 17 Rate Blood Pressure 157/69 170/67 (mmHg) O2 Sat by Pulse 97 97 98 Oximetry 12/27/19 12/27/19 12/27/19 01:01 01:31 02:00 Temperature 98.2 F 98.1 F 98.1 F Pulse Rate 62 58 83 Respiratory 18 13 12 Rate Blood Pressure 157/73 140/68 141/72 (mmHg) O2 Sat by Pulse 97 98 84 Oximetry 12/27/19 12/27/19 12/27/19 02:31 03:00 03:31 Temperature 97.9 F 97.7 F 97.5 F Pulse Rate 60 63 58 Respiratory 10 15 15 Rate Blood Pressure 140/64 159/68 169/71 (mmHg) O2 Sat by Pulse 97 98 98 Oximetry 12/27/19 12/27/19 12/27/19 04:00 04:01 04:31 Temperature 97.5 F 97.5 F 97.3 F Pulse Rate 78 78 56 Respiratory 23 26 15 Rate Blood Pressure 164/90 164/77 (mmHg) O2 Sat by Pulse 100 98 99 Oximetry 12/27/19 12/27/19 12/27/19 05:00 05:01 05:31 Temperature 97.5 F 97.3 F 97.3 F Pulse Rate 60 49 65 Respiratory 13 16 15 Rate Blood Pressure 166/75 189/93 (mmHg) O2 Sat by Pulse 99 99 99 Oximetry 12/27/19 12/27/19 12/27/19 05:39 06:00 06:01 Temperature 97.3 F 97.2 F 97.2 F Pulse Rate 56 60 58 Respiratory 14 17 14 Rate Blood Pressure 171/82 181/74 (mmHg) O2 Sat by Pulse 99 99 99 Oximetry 12/27/19 12/27/19 12/27/19 06:02 06:21 06:31 Temperature 97.2 F 97.2 F 97.2 F Pulse Rate 49 68 63 Respiratory 13 29 18 Rate Blood Pressure 189/79 174/88 200/88 (mmHg) O2 Sat by Pulse 99 98 98 Oximetry 12/27/19 12/27/1920 06:43 07:00 07:01 Temperature 97.2 F 97.2 F 97.2 F Pulse Rate 62 72 71 Respiratory 14 15 21 Rate Blood Pressure 181/81 177/82 (mmHg) O2 Sat by Pulse 97 98 98 Oximetry 12/27/19 12/27/19 12/27/19 07:31 08:00 08:01 Temperature 97.2 F 97.2 F 97.2 F Pulse Rate 80 70 81 Respiratory 23 30 22 Rate Blood Pressure 177/84 191/86 (mmHg) O2 Sat by Pulse 97 98 97 Oximetry 12/27/19 08:31 Temperature 97.0 F Pulse Rate 78 Respiratory 19 Rate Blood Pressure 114/83 (mmHg) O2 Sat by Pulse 97 Oximetry Intake and Output Last 24 Hours 12/25/19 12/26/19 12/27/19 12/28/19 06:59 06:59 06:59 07:59 Intake Total 5693 3859 3451 Output Total 907 058 2202 200 Balance 4963 3041 -444 -200 Weight 201 lb 0.985 oz 219 lb 12.814 oz 221 lb 15.327 oz Intake: IV Fluids 2521 2966 1287 ABX 54 NS (0.9%) 2056 2444 1055 Protonix 465 522 178 IVPB 191 173 494 ABX 66 59 Ca gluconate 125 115 Protonix 435 magnesium sulfate 58 Oral 2730 720 1670 Packed Cells 251 Output: Carlson 868 235 7424 200 Other: Date of Last Bowel 12/25/19 12/25/2019 Movement # Bowel Movements 2 1 1 Estimated Stool Amount Large Small Small O2: RA Infusions: None Medications: Acetaminophen (Tylenol Tab*) 650 mg PO Q4H PRN PRN Reason: mild to moderate pain Last Admin: 12/24/19 15:06 Dose: 650 mg Atorvastatin Calcium (Lipitor*) 10 mg PO 2100 JOHN Last Admin: 12/26/19 20:41 Dose: 10 mg Hydralazine HCl (Apresoline Iv*) 5 mg IV SLOW PU Q1H PRN PRN Reason: SYSTOLIC BP GREATER THAN:170 Last Admin: 12/27/19 08:06 Dose: 5 mg Hydrocortisone Sodium Succinate (Solu-Cortef*) 25 mg IV Q12H JOHN Last Admin: 12/27/19 05:02 Dose: 25 mg Hydroxyzine HCl (Atarax Tab*) 10 mg PO DAILY [facility] Last Admin: 12/27/19 08:07 Dose: 10 mg Ceftriaxone Sodium 1 gm/ (Sodium Chloride) 50 mls @ 100 mls/hr IVPB Q24H [facility] Last Admin: 12/26/19 17:29 Dose: 100 mls/hr Pantoprazole Sodium (Protonix Iv Bag*) 80 mg in 250 mls @ 25 mls/hr IV Q10H [facility] Last Admin: 12/27/19 05:02 Dose: Not Given Levothyroxine Sodium (Synthroid Tab*) 100 mcg PO DAILY@0600 [facility] Last Admin: 12/27/19 05:02 Dose: 100 mcg Loperamide HCl (Imodium Cap*) 2 mg PO DAILY [facility] Last Admin: 12/27/19 08:07 Dose: 2 mg Melatonin (Melatonin) 3 mg PO BEDTIME PRN PRN Reason: TROUBLE SLEEPING Last Admin: 12/27/19 01:08 Dose: 3 mg Nystatin (Nystatin Suspension*) 200,000 units PO QID [facility] Last Admin: 12/27/19 08:08 Dose: 200,000 units Nystatin (Nystatin Top Powder*) 1 applic TOPICAL TID [facility] Last Admin: 12/27/19 08:08 Dose: 1 applic Ondansetron HCl (Zofran Inj*) 4 mg IV Q4H PRN PRN Reason: NAUSEA/VOMITING Oxycodone/Acetaminophen (Percocet 5/325 Tab*) 1 tab PO TID PRN PRN Reason: PAIN - MODERATE Last Admin: 12/26/19 20:41 Dose: 1 tab Potassium Chloride (Klor Con Er Tab*) 40 meq PO Q4H [facility] Stop: 12/27/19 10:01 Last Admin: 12/27/19 05:43 Dose: 40 meq Physical Exam: Constitutional: awake, alert, no distress, no diaphoresis Head: normocephalic, atraumatic Eyes: no pallor, no icterus ENT: moist mucous membranes Neck: soft, supple CVS: normal rate, regular, no murmur Chest/Resp: bilateral air entry, diminished throughout no rhales, no wheeze, no rhonchi, no acc muscle use Abdomen/GI: soft, nontender, nondistended, BS hypoactive Ext/Msk: warm, has generalized edema, BUE 3+, BLE difficult to examine d/t pyoderma gangrenosum, has cream intact with some open areas visualized Skin: intact with the exception of BLE, warm Neuro: awake, alert, orientedx3, moving all extremities, no gross focal deficit Psych: normal affect Labs: Laboratory Results - last 24 hr 12/23/19 12/24/19 12/25/19 04:14 22:39 10:32 WBC RBC Hgb Hct MCV MCH MCHC RDW Plt Count MPV Neut % (Auto) Lymph % (Auto) [place] % (Auto) Eos % (Auto) Baso % (Auto) Absolute Neuts (auto) Absolute Lymphs (auto) Absolute Monos (auto) Absolute Eos (auto) Absolute Basos (auto) Absolute Nucleated RBC Immature Gran % Neutrophils % Band Neutrophils % Lymphocytes % Monocytes % Metamyelocytes % Myelocytes % Nucleated RBC % Nucleated RBCs/100 WBC Normal RBC Morphology Polychromasia Anisocytosis Microcytosis Sodium Potassium Chloride Carbon Dioxide Anion Gap BUN Creatinine Est GFR ( Amer) Est GFR (Non-Af Amer) BUN/Creatinine Ratio Glucose Calcium Blood Type O Negative Antibody Screen Negative Crossmatch See Detail See Detail Reaction Interpretation 12/26/19 12/26/19 12/26/19 05:24 11:24 17:26 WBC 10.5 10.4 RBC 2.69 L 3.16 L Hgb 7.9 L 9.2 L Hct 23 L 28 L MCV 86 87 MCH 30 29 MCHC 34 34 RDW 16 H 16 H Plt Count 145 L 159 MPV 7.0 L 7.0 L Neut % (Auto) Lymph % (Auto) [place] % (Auto) Eos % (Auto) Baso % (Auto) Absolute Neuts (auto) Absolute Lymphs (auto) Absolute Monos (auto) Absolute Eos (auto) Absolute Basos (auto) Absolute Nucleated RBC Immature Gran % Neutrophils % Band Neutrophils % Lymphocytes % Monocytes % Metamyelocytes % Myelocytes % Nucleated RBC % Nucleated RBCs/100 WBC Normal RBC Morphology Polychromasia Anisocytosis Microcytosis Sodium Potassium Chloride Carbon Dioxide Anion Gap BUN Creatinine Est GFR ( Amer) Est GFR (Non-Af Amer) BUN/Creatinine Ratio Glucose Calcium Blood Type O Negative Antibody Screen Negative Crossmatch See Detail Reaction Interpretation 12/26/19 12/27/19 12/27/19 22:58 04:00 04:00 WBC 10.8 10.4 RBC 3.07 L 2.96 L Hgb 9.0 L 8.7 L Hct 27 L 26 L MCV 87 87 MCH 29 30 MCHC 34 34 RDW 16 H 16 H Plt Count 148 L 152 MPV 6.6 L 6.8 L Neut % (Auto) Not Reportable Lymph % (Auto) Not Reportable [place] % (Auto) Not Reportable Eos % (Auto) Not Reportable Baso % (Auto) Not Reportable Absolute Neuts (auto) Not Reportable Absolute Lymphs (auto) Not Reportable Absolute Monos (auto) Not Reportable Absolute Eos (auto) Not Reportable Absolute Basos (auto) Not Reportable Absolute Nucleated RBC Not Reportable Immature Gran % 4.0 Neutrophils % 83.0 Band Neutrophils % 2.0 Lymphocytes % 6.0 Monocytes % 7.0 Metamyelocytes % 1.0 Myelocytes % 1.0 Nucleated RBC % Not Reportable Nucleated RBCs/100 WBC 3.0 H Normal RBC Morphology Not Reportable Polychromasia 1+ Anisocytosis 1+ Microcytosis 1+ Sodium 143 Potassium 3.2 L Chloride 117 H Carbon Dioxide 21 L Anion Gap 5 BUN 23 Creatinine 0.85 Est GFR ( Amer) 78.1 Est GFR (Non-Af Amer) 64.5 BUN/Creatinine Ratio 27.1 H Glucose 142 H Calcium 7.2 L Blood Type Antibody Screen Crossmatch Reaction Interpretation Imaging: Chest xray 12/22: no acute changes CTH 12/21: Negative CT chest/abdomen 12/21: Right adrenal mass, left adrenal hyperplasia, otherwise WNL Assessment: 79F with known medical history of HTN, RA, pyoderm gangrenosium, vasculitis, and PUD, presents on 12/22/19 with complaints of decreased appetite, nausea, vomiting, abdominal pain, and SOB. Admitted to ICU with hypotension and GI bleed. S/p EGD in which large areas of ulceration were injected with epi and clipped. - Blood loss anemia - Upper GI bleed - Fluid overload - HTN - Hypokalemia - UTI - Pyoderma gangrenosum of BLE Plan: Neuro- - No active issues -Delirium prec; avoid BDZ CVS- - HTN: acute on chronic. HR is on the low end of normal so will use PRN hydralyzine IV for now. - Also will aggressively diurese with lasix to reduce BP. Consider ACEI or ARB if BP unable to be controlled with diuretics. -Maintain MAP>65 as long as SBP<160 Resp- - No active issues -Wean Fio2 to keep sat>92% -Aspiration prec, Pulmonary Toilet, IS ID- - UTI: proteus mirabilis - Continue ceftriaxone which will cover this bacteria. - Goal temp<101 - WBC remains WNL GI- - Upper GI bleed: acute, improving. S/p epi injections and clipping of large duodenal ulcerations - No further episodes of significant melana -Nutrition: Ok for heart healthy diet -GI prophylaxis: continue protonix gtt for 72hrs more, ending 12/28/19. Renal- -strict I/O, replete to keep K>4, Mg>2 -carlson as indicated Heme- - Anemia: acute, improving. - D/t blood loss from upper GI bleed. H/H has stabilized. Endo-Maintain BG<200, insulin protocol as needed - Hypokalemia: acute. Replaced this AM Musculsk- pressure ulcer prophylaxis. OOB. Wounds- BLE chronic wounds Nutrition- heart healthy diet DVT prophylaxis: contraindicated GI prophylaxis: PPI Carlson Catheter: continue while aggressively diuresing Disposition: Patient will likely be transferred to floor later today once cleared by GI Patient clinical status: stable Code Status: FULL <Sully Hickey - Last Filed: 12/27/19 16:30> Progress Note - Progress Note Note: Attending physician attestation: Pt seen and examined at bedside. Plan of care discussed with bedside RN and [place] Pacheco APPOINTMENT SCHEDULER. 79 y o f with GI bleed, s/p EGD, large areas of ulceration, clipps were applied. Pt continued to have bleeding and drop in H&H after procedure. She subsequenlty stabilized and had no bleeding for 24 hrs. She was able to tolerate diet. Her BP was elevated today, responded to hydrallazine. Volume overload was suspected and Lasix was administered. Pt has h/o pyoderma of LE, being followed by wound clinic. She has been on prednisone which was stopped given GI bleed. c/ w wound care. Pt was stable to be transferred to regular medical floor today after consulting with GI. Pt was endorsed to inpt care team
[2019-12-27] MEDS: oxyCODONE/Acetamin 5/325 MG* TAB PO PRN ×3 (09:33→20:09)
[2019-12-27] MEDS: Atenolol TAB* 50 MG PO SCH (14:08)
[2019-12-27] MEDS: cefTRIAXone(*) 1 GM in NS 0.9% 50 ML* 50 ML IVPB SCH (20:09)
[2019-12-27] MEDS: Atorvastatin* 10 MG TAB PO SCH (20:10)
[2019-12-28] MEDS: Pantoprazole* 80 mg IN NS 80 MG/250 ML BAG IV SCH ×3 (01:56→09:49)
[2019-12-28] MEDS: hydrALAZINE IV* 20 MG/ML VIAL IV SLOW PU PRN (04:02)
[2019-12-28] MEDS: Hydrocortisone INJ* 100 MG/2 ML VIAL (in pyxis) IV SCH (05:04)
[2019-12-28] MEDS: oxyCODONE/Acetamin 5/325 MG* TAB PO PRN ×3 (05:23→16:41)
[2019-12-28] MEDS: Levothyroxine TAB* 100 MCG TAB PO SCH (05:24)
[2019-12-28 05:38] LABS: Hematocrit 27 % (35-47); Hemoglobin 9.4 g/dL (12.0-16.0); Mean Corpuscular HGB Conc 35 g/dL (31-36); Mean Corpuscular Hemoglobin 30 pg (27-31); Mean Corpuscular Volume 86 fL (80-97); Mean Platelet Volume 6.9 fL (7.4-10.4); Platelet Count 156 10^3/uL (150-450); Red Blood Count 3.13 10^6 /uL (3.70-4.87); Red Cell Distribution Width 16 % (10-15); White Blood Count 11.6 10^3/uL (3.5-10.8)
[2019-12-28 05:55] LABS: BUN/Creatinine Ratio 29.5 (8-20); Calcium 7.4 mg/dL (8.6-10.3); EGFR African American 86.2 (>60); EGFR Non-African American 71.2 (>60); Magnesium 1.7 mg/dL (1.9-2.7); Potassium 3.6 mmol/L (3.5-5.0)
--- NOTE | 2019-12-28 09:01 | PN ---
Subjective Date of Service: 12/28/19 Interval History: Patient c/o leg pain and feels the wounds are worsening. She denies abd pain, nausea, vomiting, chest pain, difficulty breathing, lightheadedness. She has not had a BM in 2 days, but prior to that was having diarrhea. Family History: Unchanged from Admission Social History: Unchanged from Admission Past Medical History: Unchanged from Admission Objective Active Medications: Acetaminophen (Tylenol Tab*) 650 mg PO Q4H PRN PRN Reason: mild to moderate pain Last Admin: 12/24/19 15:06 Dose: 650 mg Atenolol (Tenormin Tab*) 50 mg PO DAILY [facility] Last Admin: 12/27/19 14:08 Dose: 50 mg Atorvastatin Calcium (Lipitor*) 10 mg PO 2100 [facility] Last Admin: 12/27/19 20:10 Dose: 10 mg Hydralazine HCl (Apresoline Iv*) 5 mg IV SLOW PU Q1H PRN PRN Reason: SYSTOLIC BP GREATER THAN:170 Last Admin: 12/28/19 04:02 Dose: 5 mg Hydrocortisone Sodium Succinate (Solu-Cortef*) 25 mg IV Q12H [facility] Last Admin: 12/28/19 05:04 Dose: 25 mg Hydroxyzine HCl (Atarax Tab*) 10 mg PO DAILY [facility] Last Admin: 12/27/19 08:07 Dose: 10 mg Ceftriaxone Sodium 1 gm/ (Sodium Chloride) 50 mls @ 100 mls/hr IVPB Q24H [facility] Last Admin: 12/27/19 20:09 Dose: 100 mls/hr Pantoprazole Sodium (Protonix Iv Bag*) 80 mg in 250 mls @ 25 mls/hr IV Q10H [facility] Last Admin: 12/28/19 05:03 Dose: 25 mls/hr Levothyroxine Sodium (Synthroid Tab*) 100 mcg PO DAILY@0600 [facility] Last Admin: 12/28/19 05:24 Dose: 100 mcg Loperamide HCl (Imodium Cap*) 2 mg PO DAILY [facility] Last Admin: 12/27/19 08:07 Dose: 2 mg Melatonin (Melatonin) 3 mg PO BEDTIME PRN PRN Reason: TROUBLE SLEEPING Last Admin: 12/27/19 23:47 Dose: 3 mg Nystatin (Nystatin Suspension*) 200,000 units PO QID [facility] Last Admin: 12/27/19 20:10 Dose: 200,000 units Nystatin (Nystatin Top Powder*) 1 applic TOPICAL TID JOHN Last Admin: 12/27/19 20:14 Dose: Not Given Ondansetron HCl (Zofran Inj*) 4 mg IV Q4H PRN PRN Reason: NAUSEA/VOMITING Oxycodone/Acetaminophen (Percocet 5/325 Tab*) 1 tab PO TID PRN PRN Reason: PAIN - MODERATE Last Admin: 12/28/19 05:23 Dose: 1 tab Vital Signs - 8 hr 12/28/19 12/28/19 12/28/19 00:38 03:42 05:23 Temperature 97 F Pulse Rate 71 Respiratory 16 18 16 Rate Blood Pressure 172/81 (mmHg) O2 Sat by Pulse 100 Oximetry 12/28/19 05:46 Temperature Pulse Rate Respiratory Rate Blood Pressure 163/63 (mmHg) O2 Sat by Pulse Oximetry Oxygen Devices in Use Now: None Appearance: Obese, elderly white female, laying upright in bed, appearing comfortable and in NAD Eyes: No Scleral Icterus, - - PERRL Ears/Nose/Mouth/Throat: Mucous Membranes Moist Neck: Trachea Midline Respiratory: Symmetrical Chest Expansion and Respiratory Effort, - - crackles in bilateral bases Cardiovascular: NL Sounds; No Murmurs; No JVD, RRR Abdominal: NL Sounds; No Tenderness; No Distention Extremities: - - +1 nonpitting edema throughout bilateral UEs, +2-3 pitting edema to bilateral LEs pretibially and pedally with +1 edema to knees; difficulty to assess edema in LEs overall due to wounds Skin: - - difficulty to assess wounds on LEs due to dried/caked barrier cream Neurological: Alert and Oriented x 3 Result Diagrams: 12/28/19 05:17 12/28/19 05:17 Additional Lab and Data: Laboratory Tests 12/22/19 12/23/19 12/23/19 09:34 04:14 04:14 WBC 17.5 H Hgb 6.7 L Hct 20 L Plt Count 247 Sodium 135 Potassium 4.5 Chloride 109 Carbon Dioxide 21 L BUN 58 H Creatinine 1.11 H Glucose 156 H Total Protein 6.3 L Albumin 3.2 Assess/Plan/Problems-Billing Assessment: 79 yo female with PMHx HTN, hypothyroidism, PUD, rheumatoid arthritis, IBS, vasculitis, and pyoderma gangrenosum presents with abdominal pain, n/v, and anemia. Admitted to the ICU for hypovolemic shock 2/2 UGIB. Has since improved after endoclipping of duodenal ulcers and has been transferred to the medical floor. - Patient Problems (1) Upper GI bleed Current Visit: Yes Status: Acute Code(s): K92.2 - GASTROINTESTINAL HEMORRHAGE, UNSPECIFIED SNOMED Code(s): 78663810 Comment: -presented with abd pain, n/v -EGD 12/23/19 with old blood in stomach, nonbleeding duodenal ulcers demonstrated -EGD 12/25/19 performed due to continued anemia; duodenal ulcers injected with epi and endoclipped -has received 8 units of PRBCs, 1U FFP, and 1U plts -H&H stable today -changing protonix drip to IV BID -no BM in 2 days but reportedly did not have melena prior to that -ASA has been discontinued (2) Hypovolemic shock Current Visit: Yes Status: Acute Code(s): R57.1 - HYPOVOLEMIC SHOCK SNOMED Code(s): 42533395 Comment: -UGIB complicated by hypovolemic shock in ICU, has since been hemodynamically stable and is appropriate for the medical floor -R fem line placed in ICU (3) Acute blood loss anemia Current Visit: Yes Status: Acute Code(s): D62 - ACUTE POSTHEMORRHAGIC ANEMIA SNOMED Code(s): 744465938 Comment: -2/2 GIB as above -has received 8U PRBCs total -H&H stable (4) UTI (urinary tract infection) Current Visit: Yes Status: Acute Comment: -urine culture positive for proteus -today is day 5 of ceftriaxone, will d/c (5) Anasarca Current Visit: Yes Status: Acute Code(s): R60.1 - GENERALIZED EDEMA SNOMED Code(s): 416879126 Comment: -upper and lower extremity edema -albumin and prealbumin low, nutrition has recommended TID Ensure -starting IV lasix 40 BID -patient does not have hx HFrEF; ordered TTE which is pending -may be related to large volume fluids and transfusions -I&Os and daily weights (6) Pyoderma gangrenosum Current Visit: Yes Status: Acute Code(s): L88 - PYODERMA GANGRENOSUM SNOMED Code(s): 99815239 Comment: -confirmed on skin biopsy outpatient -previously on 20mg prednisone total and dapsone -steroids attempted to be weaned previously in setting of GIB but then put on IV hydrocortisone for stress dosing as patient was hypotensive -attempting to minimally wean today and monitor, changing hydrocortisone to 10mg prednisone; Dr. Jain feels further taper likely not needed as ASA has been discontinued so lower prednisone dose may be OK in setting of PUD -concerns that dapsone was causing presenting abd pain/n/v, but it is evident now that this was d/t PUD; restarting dapsone and OK with Dr. Jain -appreciate wound consult; NO barrier cream to wounds but can attempt vasaline gauze (7) Hypertension Current Visit: No Status: Chronic Priority: Low Code(s): I10 - ESSENTIAL ( PRIMARY) HYPERTENSION SNOMED Code(s): 66726302 Comment: -previously on atenolol for HTN -has had bradycardia, will d/c atenolol and start lisinopril -prn hydralazine (8) Hypothyroidism Current Visit: No Status: Chronic Priority: Low Code(s): E03.9 - HYPOTHYROIDISM, UNSPECIFIED SNOMED Code(s): 47369574 Comment: -continue synthroid (9) Esophageal candidiasis Current Visit: Yes Status: Acute Code(s): B37.81 - CANDIDAL ESOPHAGITIS SNOMED Code(s): 69138424 Comment: -demonstrated on EGD -continue nystatin - please ensure swish and swallow -likely d/t chronic steroid use (10) Rheumatoid arthritis Current Visit: No Status: Chronic Priority: Low Code(s): M06.9 - RHEUMATOID ARTHRITIS, UNSPECIFIED SNOMED Code(s): 74247881 Comment: -prednisone plan as above (11) DVT prophylaxis Current Visit: No Status: Acute Priority: High Onset Date: 10/14/14 Code (s): WHC5456 - SNOMED Code(s): 700292309 Comment: -try to ambulate -SCDs are contraindicated d/t LE wounds, chemoprophylaxis contrainidcated d/t GIB (12) Full code status Current Visit: No Status: Acute Priority: High Onset Date: 09/09/14 Code (s): Z78.9 - OTHER SPECIFIED HEALTH STATUS SNOMED Code(s): 910049921 Status and Disposition: will need ANDRESSA vs PMRU
[2019-12-28] MEDS: Atenolol TAB* 50 MG PO SCH (09:49)
[2019-12-28] MEDS: Lisinopril TAB* 10 MG PO SCH (09:51)
[2019-12-28] MEDS: Loperamide CAP* 2 MG PO SCH (09:51)
[2019-12-28] MEDS: hydrOXYzine HCL TAB* 10 MG PO SCH (09:52)
[2019-12-28] MEDS: Nystatin SUSPENSION* 100000 UNITS/ML 5 ML UDC PO SCH ×4 (09:53→20:13)
[2019-12-28] MEDS ORDERED: Furosemide IV* 10 MG/ML VIAL (40 MG) IV SLOW PU ONE (09:57)
[2019-12-28] MEDS ORDERED: Magnesium Sulfate 2 GM IV* 2 GM/50 ML BAG IVPB ONE (09:57)
[2019-12-28] MEDS ORDERED: Potassium Chlor TAB* 20 MEQ TAB.ER PO ONE (09:58)
[2019-12-28] MEDS: Nystatin TOP POWDER* 15 GM BTL TOPICAL SCH ×3 (10:00→20:20)
[2019-12-28 13:00] LABS: Albumin 2.4 g/dL (3.2-5.2); Albumin/Globulin Ratio 1.2 (1-3); Indirect Bilirubin 0.2 mg/dL (0.3-1.0); Total Bilirubin 0.3 mg/dL (0.2-1.0); Total Protein 4.4 g/dL (6.4-8.9)
[2019-12-28] MEDS: Furosemide IV* 10 MG/ML VIAL (40 MG) IV SLOW PU SCH (19:00)
[2019-12-28] MEDS: Dapsone TAB* 100 MG PO SCH (20:14)
[2019-12-28] MEDS: Atorvastatin* 10 MG TAB PO SCH (20:14)
[2019-12-28] MEDS: Pantoprazole IV* 40 MG IV SCH (20:15)
[2019-12-29] MEDS: oxyCODONE/Acetamin 5/325 MG* TAB PO PRN ×2 (00:41→09:38)
[2019-12-29] MEDS: Acetaminophen TAB* 325 MG PO PRN ×3 (03:15→16:20)
[2019-12-29] MEDS: Melatonin 3 MG TAB PO PRN ×2 (03:15→22:49)
[2019-12-29 05:09] LABS: Hematocrit 29 % (35-47); Hemoglobin 9.7 g/dL (12.0-16.0); Mean Corpuscular HGB Conc 34 g/dL (31-36); Mean Corpuscular Hemoglobin 30 pg (27-31); Mean Corpuscular Volume 88 fL (80-97); Mean Platelet Volume 7.1 fL (7.4-10.4); Platelet Count 164 10^3/uL (150-450); Red Blood Count 3.28 10^6 /uL (3.70-4.87); Red Cell Distribution Width 16 % (10-15); White Blood Count 12.5 10^3/uL (3.5-10.8)
[2019-12-29 05:19] LABS: Albumin 2.5 g/dL (3.2-5.2); Calcium 7.3 mg/dL (8.6-10.3); Magnesium 1.8 mg/dL (1.9-2.7); Potassium 3.7 mmol/L (3.5-5.0); Total Bilirubin 0.4 mg/dL (0.2-1.0)
[2019-12-29] MEDS: Levothyroxine TAB* 100 MCG TAB PO SCH (05:21)
[2019-12-29 05:25] LABS: Albumin/Globulin Ratio 1.3 (1-3); EGFR African American 93.1 (>60); EGFR Non-African American 76.9 (>60); Total Protein 4.5 g/dL (6.4-8.9)
[2019-12-29 05:27] LABS: Polychromasia 1+
[2019-12-29 05:28] LABS: ABS Lymphocytes 0.8 10^3/ul (1.0-4.8); ABS Monocytes 0.4 10^3/ul (0-0.8); ABS Neutrophils 11.3 10^3/ul (1.5-7.7); Lymphocyte % 6.1 %; Nucleated Red Blood Cells % 0.3
--- NOTE | 2019-12-29 09:04 | ECHO ---
*[facility]* [place] [address] Fax #: [phone] Transthoracic Echocardiogram Patient: Eloisa Ash : 1940 Study Date: 12/29/2019 Age: 79 Gender: F HR: 70 bpm Height: 61 in /154.9 cm BSA: 1.97 m^2 Weight: 220.5 lb /100.2 kg BMI: 41.8 kg/m^2 *Cd Reactor Operator Head: Marian Troy *Referring Physician: * O'Velia Lyn *Reading Physician: * Naren Montoya MD Indications: Edema. History: Risk factors: Hypertension. Conclusions Summary: - Left ventricle: Systolic function is normal. The estimated ejection fraction is 55-60%. Wall motion is normal; there are no regional wall motion abnormalities. - Right ventricle: Systolic function is normal. - Mitral valve: There is trace regurgitation. - Tricuspid valve: There is trace regurgitation. - Pulmonary arteries: Systolic pressure can not be accurately estimated. - Study data: No prior study is available for comparison. Study data: Transthoracic echocardiogram. Procedure: Transthoracic echocardiography was performed. Image quality was adequate. The study was technically limited due to restricted patient mobility and body habitus. Complete 2D, spectral Doppler, and color flow Doppler. Location: Bedside. Patient status: Inpatient. Patient room number: 444-2. No prior study is available for comparison. Rhythm: Normal sinus rhythm with PAC's. Findings Left ventricle: The cavity size is normal. Wall thickness is mildly to moderately increased. Systolic function is normal. The estimated ejection fraction is 55-60%. Wall motion is normal; there are no regional wall motion abnormalities. Doppler parameters are consistent with abnormal left ventricular relaxation (grade 1 diastolic dysfunction). Right ventricle: The cavity size is mildly dilated. Wall thickness is normal. Systolic function is normal. Ventricular septum: The ventricular septum is normal. Left atrium: The atrium is mildly to moderately dilated. Right atrium: The atrium is mildly to moderately dilated. Atrial septum: No defect or patent foramen ovale is identified. Mitral valve: The valve is structurally normal. There is no evidence of stenosis. There is trace regurgitation. Aortic valve: The valve is trileaflet. The leaflets are mildly calcified. There is trace regurgitation. Tricuspid valve: The valve is structurally normal. There is no evidence of stenosis. There is trace regurgitation. Pulmonic valve: The valve is structurally normal. There is no evidence of stenosis. There is trace regurgitation. Aorta: The aortic root appears normal. The aortic arch appears normal. Pericardium: There is no significant pericardial effusion. Pulmonary arteries: Systolic pressure can not be accurately estimated. Systemic veins: Inferior vena cava: The vessel is normal in size. There is (>= 50%) respiratory change in the IVC dimension. Pulmonary veins: Not well visualized. Measurements Left ventricle Value Ref Aortic valve Value Ref MELBA, LAX 4.0 cm 3.8 - 5.2 Peak v, S 1.98 m/sec ---- ESD, LAX 2.8 cm 2.2 - 3.5 VTI, S 42.0 cm ---- FS, LAX 30 % 27 - 45 Mean grad, S 8.0 mm Hg ---- PW, ED, LAX (H) 1.5 cm 0.6 - 0.9 Peak grad, S 16.0 mm Hg ---- E', lat aye, TDI (L) 4.7 cm/sec >=10.0 ALTON, VTI 2.24 cm^2 ---- E/e', lat aye, 16 ALTON, Vmax 1.95 cm^2 ---- TDI Mitral valve Value Ref LVOT Value Ref Peak E 0.75 m/sec ---- Diam, S 2.00 cm Peak A 1.15 m/sec ---- Area 3.1 cm^2 Decel time 198 ms ---- Peak vida, S 1.23 m/sec Peak grad, D 2.3 mm Hg ---- Peak grad, S 6 mm Hg Peak E/A ratio 0.7 ---- Mean grad, S 3 mm Hg SV 94 ml Pulmonic valve Value Ref Peak v, S 0.89 m/sec ---- Ventricular septum Value Ref Peak grad, S 3.0 mm Hg ---- IVS, ED (H) 1.4 cm 0.6 - 0.9 Aortic root Value Ref Right ventricle Value Ref Root diam 2.5 cm <4.1 MELBA, LAX 4.3 cm MELBA minor ax, (H) 4.8 cm 1.9 - 3.5 Ascending aorta Value Ref A4C mid AAo AP diam, S 3.2 cm ---- Left atrium Value Ref Aortic arch Value Ref AP dim, ES (H) 4.30 cm 2.70 - Arch diam 2.6 cm ---- 3.80 ML dim, A4C 5.2 cm Decending aorta Value Ref SI dim, A4C 5.8 cm Drew peak vida 0.64 m/sec ---- Vol/bsa, ES, 1-p 39 ml/m^2 11 - 40 A4C Inferior vena cava Value Ref Vol/bsa, ES, A/L (H) 43 ml/m^2 16 - 34 Diam 1.9 cm ---- Right atrium Value Ref SI dim, ES 5.2 cm 3.4 - 5.3 ML dim, ES, A4C (H) 5.1 cm 2.6 - 4.4 SI dim, ES, A4C 5.2 cm 3.4 - 5.3 Legend: (L) and (H) nikolay values outside specified reference range. Prepared and electronically signed by Naren Montoya MD 12/29/2019 09:03
[2019-12-29] MEDS ORDERED: Magnesium Sulfate 2 GM IV* 2 GM/50 ML BAG IVPB ONE (09:11)
[2019-12-29] MEDS: Nystatin SUSPENSION* 100000 UNITS/ML 5 ML UDC PO SCH ×4 (09:35→21:37)
[2019-12-29] MEDS: hydrOXYzine HCL TAB* 10 MG PO SCH (09:36)
[2019-12-29] MEDS: Lisinopril TAB* 10 MG PO SCH (09:36)
[2019-12-29] MEDS: Loperamide CAP* 2 MG PO SCH (09:39)
[2019-12-29] MEDS: Dapsone TAB* 100 MG PO SCH ×2 (09:40→21:35)
[2019-12-29] MEDS: Furosemide IV* 10 MG/ML VIAL (40 MG) IV SLOW PU SCH ×2 (09:49→16:20)
[2019-12-29] MEDS: Pantoprazole IV* 40 MG IV SCH (09:49)
[2019-12-29] MEDS ORDERED: Morphine INJ* 2 MG/ML 1 ML SYRINGE (TWO MG - NEW SYRINGE VERSION) IV ONE (10:55)
[2019-12-29] MEDS: Nystatin TOP POWDER* 15 GM BTL TOPICAL SCH ×3 (11:03→21:37)
--- NOTE | 2019-12-29 15:28 | PN ---
Progress Note - Progress Note Date of Service: 12/29/19 Note: doing well, no abd pain, no bm VS: 97.3, 126/54, 78, 16 nad alert +bs, obese, soft, nt Hgb 9.7<----9.4 bun 27<-----23 UGI bleed no evidence for bleeding, needs BID ppi Karri Mancuso MD
--- NOTE | 2019-12-29 17:09 | PN ---
Subjective Date of Service: 12/29/19 Interval History: Patient's legs washed today and she experienced severe pain for that, but she feels much better now and is glad it was done. She denies fever/chills, chest pain, difficulty breathing, abd pain, nausea/vomiting. No BM yet today. Family History: Unchanged from Admission Social History: Unchanged from Admission Past Medical History: Unchanged from Admission Objective Active Medications: Acetaminophen (Tylenol Tab*) 650 mg PO Q4H PRN PRN Reason: mild to moderate pain Last Admin: 12/29/19 16:20 Dose: 650 mg Atorvastatin Calcium (Lipitor*) 10 mg PO 2100 [facility] Last Admin: 12/28/19 20:14 Dose: 10 mg Dapsone (Dapsone Tab*) 25 mg PO BID [facility] Last Admin: 12/29/19 09:40 Dose: 25 mg Furosemide (Lasix Iv*) 40 mg IV SLOW PU 0800,1700 [facility] Last Admin: 12/29/19 16:20 Dose: 40 mg Heparin Sodium (Porcine) (Heparin Flush Picc/Ml/Cvc(*)) 1 ml FLUSH 0600,1800 [facility]; Protocol Last Admin: 12/29/19 16:21 Dose: 1 ml Hydralazine HCl (Apresoline Iv*) 5 mg IV SLOW PU Q1H PRN PRN Reason: SYSTOLIC BP GREATER THAN:170 Last Admin: 12/28/19 04:02 Dose: 5 mg Hydroxyzine HCl (Atarax Tab*) 10 mg PO DAILY [facility] Last Admin: 12/29/19 09:36 Dose: 10 mg Levothyroxine Sodium (Synthroid Tab*) 100 mcg PO DAILY@0600 [facility] Last Admin: 12/29/19 05:21 Dose: 100 mcg Lisinopril (Prinivil Tab*) 20 mg PO DAILY [facility] Last Admin: 12/29/19 09:36 Dose: 20 mg Loperamide HCl (Imodium Cap*) 2 mg PO DAILY [facility] Last Admin: 12/29/19 09:39 Dose: 2 mg Melatonin (Melatonin) 3 mg PO BEDTIME PRN PRN Reason: TROUBLE SLEEPING Last Admin: 12/29/19 03:15 Dose: 3 mg Nystatin (Nystatin Top Powder*) 1 applic TOPICAL TID [facility] Last Admin: 12/29/19 13:02 Dose: 1 applic Nystatin (Nystatin Suspension*) 200,000 units PO QID [facility] Last Admin: 12/29/19 16:20 Dose: 200,000 units Ondansetron HCl (Zofran Inj*) 4 mg IV Q4H PRN PRN Reason: NAUSEA/VOMITING Pantoprazole Sodium (Protonix Tab*) 40 mg PO BID [facility] Prednisone (Deltasone 10 Mg Tab) 10 mg PO DAILY [facility] Last Admin: 12/29/19 09:36 Dose: 10 mg Vital Signs - 8 hr 12/29/19 12/29/19 12/29/19 09:36 09:38 09:39 Temperature Pulse Rate Respiratory 16 16 16 Rate Blood Pressure (mmHg) O2 Sat by Pulse Oximetry 12/29/19 12/29/19 12/29/19 11:02 11:46 12:08 Temperature 97.3 F Pulse Rate 78 Respiratory 20 20 16 Rate Blood Pressure 126/54 (mmHg) O2 Sat by Pulse 98 Oximetry 12/29/19 16:25 Temperature 97.2 F Pulse Rate 75 Respiratory 16 Rate Blood Pressure 134/51 (mmHg) O2 Sat by Pulse 97 Oximetry Appearance: Obese, elderly white female, laying in bed, appearing comfortable and in NAD Eyes: No Scleral Icterus, - - PERRL Ears/Nose/Mouth/Throat: Mucous Membranes Moist Neck: Trachea Midline Respiratory: Symmetrical Chest Expansion and Respiratory Effort, - - faint crackles in bilateral lower lobes Cardiovascular: NL Sounds; No Murmurs; No JVD, RRR Abdominal: - - abd soft/nontender/nondistended Extremities: - - edema to knees resolved, pedal edema only +1 pitting bilaterally; difficulty to assess pretibial edema due to wounds but appealrs +1 pitting; edema in UEs improved, only trace Skin: - - purple discoloration to bilateral LEs in calf region, multiple wounds throughout bilateral LEs with clean vasaline gauze overalying Neurological: Alert and Oriented x 3 Result Diagrams: 12/29/19 05:02 12/29/19 05:02 Additional Lab and Data: Above labs were pulled in to the note, when the note was edited prior to signing. See below for labs from day of consultation. Laboratory Tests 12/22/19 12/23/19 12/23/19 09:34 04:14 04:14 WBC 17.5 H Hgb 6.7 L Hct 20 L Plt Count 247 Sodium 135 Potassium 4.5 Chloride 109 Carbon Dioxide 21 L BUN 58 H Creatinine 1.11 H Glucose 156 H Total Protein 6.3 L Albumin 3.2 Assess/Plan/Problems-Billing Assessment: 79 yo female with PMHx HTN, hypothyroidism, PUD, rheumatoid arthritis, IBS, vasculitis, and pyoderma gangrenosum presents with abdominal pain, n/v, and anemia. Admitted to the ICU for hypovolemic shock 2/2 UGIB. Has since improved after endoclipping of duodenal ulcers and has been transferred to the medical floor. - Patient Problems (1) Upper GI bleed Current Visit: Yes Status: Acute Code(s): K92.2 - GASTROINTESTINAL HEMORRHAGE, UNSPECIFIED SNOMED Code(s): 29841843 Comment: -presented with abd pain, n/v -EGD 12/23/19 with old blood in stomach, nonbleeding duodenal ulcers demonstrated -EGD 12/25/19 performed due to continued anemia; duodenal ulcers injected with epi and endoclipped -has received 8 units of PRBCs, 1U FFP, and 1U plts -H&H remains stable -changing protonix to PO -no BM in 3 days but reportedly did not have melena prior to that -ASA has been discontinued (2) Hypovolemic shock Current Visit: Yes Status: Acute Code(s): R57.1 - HYPOVOLEMIC SHOCK SNOMED Code(s): 77743978 Comment: -UGIB complicated by hypovolemic shock in ICU, has since been hemodynamically stable and is appropriate for the medical floor -R fem line placed in ICU, removing today (3) Acute blood loss anemia Current Visit: Yes Status: Acute Code(s): D62 - ACUTE POSTHEMORRHAGIC ANEMIA SNOMED Code(s): 293098272 Comment: -2/2 GIB as above -has received 8U PRBCs total -H&H stable (4) Leukocytosis Current Visit: Yes Status: Acute Code(s): D72.829 - ELEVATED WHITE BLOOD CELL COUNT, UNSPECIFIED SNOMED Code(s): 244758975 Comment: -leukocytosis started yesterday and minimally improved today -unclear of source, perhaps related to LE wounds and prednisone -did complete tx for UTI, will remove carlson and recheck UA -removing femoral line -no other signs of infection at this time (5) UTI (urinary tract infection) Current Visit: Yes Status: Acute Comment: -urine culture positive for proteus -received 5 day course ceftriaxone (6) Anasarca Current Visit: Yes Status: Acute Code(s): R60.1 - GENERALIZED EDEMA SNOMED Code(s): 528103207 Comment: -upper and lower extremity edema, greatly improved today -albumin and prealbumin low, nutrition has recommended TID Ensure -TTE with EF wnl and no diastolic dysfunction -continue IV lasix 40 BID -likely related to large volume fluids and transfusions -I&Os and daily weights (7) Pyoderma gangrenosum Current Visit: Yes Status: Acute Code(s): L88 - PYODERMA GANGRENOSUM SNOMED Code(s): 14704724 Comment: -confirmed on skin biopsy outpatient -previously on 20mg prednisone total and dapsone -steroids attempted to be weaned previously in setting of GIB but then put on IV hydrocortisone for stress dosing as patient was hypotensive -prednisone 10mg daily now; Dr. Jain feels further taper likely not needed as ASA has been discontinued so lower prednisone dose may be OK in setting of PUD -continue dapsone -appreciate wound consult; NO barrier cream to wounds but can attempt vasaline gauze (8) Hypertension Current Visit: No Status: Chronic Priority: Low Code(s): I10 - ESSENTIAL ( PRIMARY) HYPERTENSION SNOMED Code(s): 39020351 Comment: -previously on atenolol for HTN -has had bradycardia, discontinued atenolol and started lisinopril -has been normotensive (9) Hypothyroidism Current Visit: No Status: Chronic Priority: Low Code(s): E03.9 - HYPOTHYROIDISM, UNSPECIFIED SNOMED Code(s): 46805149 Comment: -continue synthroid (10) Esophageal candidiasis Current Visit: Yes Status: Acute Code(s): B37.81 - CANDIDAL ESOPHAGITIS SNOMED Code(s): 68685044 Comment: -demonstrated on EGD -continue nystatin - please ensure swish and swallow -likely d/t chronic steroid use (11) Rheumatoid arthritis Current Visit: No Status: Chronic Priority: Low Code(s): M06.9 - RHEUMATOID ARTHRITIS, UNSPECIFIED SNOMED Code(s): 55314528 Comment: -prednisone plan as above (12) DVT prophylaxis Current Visit: No Status: Acute Priority: High Onset Date: 12/24/14 Code (s): MFW6505 - SNOMED Code(s): 752349191 Comment: -try to ambulate -SCDs are contraindicated d/t LE wounds, chemoprophylaxis contrainidcated d/t GIB (13) Full code status Current Visit: No Status: Acute Priority: High Onset Date: 09/09/14 Code (s): Z78.9 - OTHER SPECIFIED HEALTH STATUS SNOMED Code(s): 369164693 Status and Disposition: will need ANDRESSA vs PMRU
[2019-12-29 18:13] LABS: Urine Appearance Clear; Urine Bilirubin Negative (Negative); Urine Blood 1+ (Negative); Urine Color Straw; Urine Glucose Negative (Negative); Urine Ketones Negative (Negative); Urine Nitrite Negative (Negative); Urine Protein Negative (Negative); Urine Specific Gravity 1.006 (1.010-1.030); Urine Urobilinogen Negative (Negative)
[2019-12-29 18:16] LABS: Urine Bacteria 1+ (Absent); Urine Red Blood Cell 2+(6-10/hpf) (Absent); Urine White Blood Cell Trace(0-5/hpf) (Absent)
[2019-12-29] MEDS: Pantoprazole TAB * 40 MG TAB PO SCH (21:35)
[2019-12-29] MEDS: Atorvastatin* 10 MG TAB PO SCH (21:35)
[2019-12-30] MEDS: Levothyroxine TAB* 100 MCG TAB PO SCH (05:35)
[2019-12-30] MEDS: Acetaminophen TAB* 325 MG PO PRN ×4 (05:35→21:21)
[2019-12-30 07:00] LABS: BUN/Creatinine Ratio 44.4 (8-20); Calcium 7.6 mg/dL (8.6-10.3); EGFR African American 110.3 (>60); EGFR Non-African American 91.2 (>60); Magnesium 1.9 mg/dL (1.9-2.7); Potassium 3.2 mmol/L (3.5-5.0)
[2019-12-30] MEDS: Dapsone TAB* 100 MG PO SCH ×2 (09:35→20:45)
[2019-12-30] MEDS: Pantoprazole TAB * 40 MG TAB PO SCH ×2 (09:36→20:45)
[2019-12-30] MEDS: hydrOXYzine HCL TAB* 10 MG PO SCH (09:36)
[2019-12-30] MEDS: Lisinopril TAB* 10 MG PO SCH (09:36)
[2019-12-30] MEDS: Furosemide IV* 10 MG/ML VIAL (40 MG) IV SLOW PU SCH (09:37)
[2019-12-30] MEDS: Nystatin SUSPENSION* 100000 UNITS/ML 5 ML UDC PO SCH ×2 (09:37→14:12)
[2019-12-30] MEDS: KCL 20 MEQ/100 ML IVPREMIX* 20 MEQ/100 ML BAG IV SCH ×3 (09:38→12:57)
[2019-12-30] MEDS: Nystatin TOP POWDER* 15 GM BTL TOPICAL SCH ×3 (09:38→20:45)
[2019-12-30] MEDS: Loperamide CAP* 2 MG PO SCH (09:38)
[2019-12-30] MEDS ORDERED: Potassium Chlor TAB* 20 MEQ TAB.ER PO ONE (12:50)
--- NOTE | 2019-12-30 16:23 | PN ---
Subjective Date of Service: 12/30/19 Interval History: Ms. 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 She was admitted to the hospital for anemia, ABD pain, nausea, vomiting, weakness, and shortness of breath. While in the hospital she was found to have a upper GI bleed. She presented to the hospital with known wounds to bilateral LEs, she follows with the wound clinic and dermatology. In October 2019 was diagnosed with Sneddon-Quick and started on Dapsone. She was later diagnosed with suspected Pyoderma gangrenosum and was started on Prednisone and increased Dapsone in November 2019. At home she has been treating the wounds with silvadene and barrier cream. She was noted to have open areas to bilateral buttocks at the time of admission. Denies fever or chills. The legs continues to have wounds that are weeping and pain Patient seen and examined at bedside. Verbal consent for wound consultation and photographs. Family History: Unchanged from Admission Social History: Unchanged from Admission Past Medical History: Unchanged from Admission Objective Active Medications: Acetaminophen (Tylenol Tab*) 975 mg PO Q6H PRN Reason: mild to moderate pain Atorvastatin Calcium (Lipitor*) 10 mg PO 2100 [facility] Dapsone (Dapsone Tab*) 25 mg PO BID [facility] Furosemide (Lasix Tab*) 60 mg PO 0800,1700 [facility] Hydroxyzine HCl (Atarax Tab*) 10 mg PO DAILY [facility] Levothyroxine Sodium (Synthroid Tab*) 100 mcg PO DAILY@0600 [facility] Lisinopril (Prinivil Tab*) 20 mg PO DAILY [facility] Loperamide HCl (Imodium Cap*) 2 mg PO DAILY [facility] Melatonin (Melatonin) 3 mg PO BEDTIME PRN Reason: TROUBLE SLEEPING Nystatin (Nystatin Top Powder*) 1 applic TOPICAL TID [facility] Nystatin (Nystatin Suspension*) 200,000 units PO QID [facility] Ondansetron HCl (Zofran Inj*) 4 mg IV Q4H PRN Reason: NAUSEA/VOMITING Pantoprazole Sodium (Protonix Tab*) 40 mg PO BID [facility] Prednisone (Deltasone 10 Mg Tab) 10 mg PO DAILY [facility] Vital Signs 12/30/19 12/30/19 12/30/19 08:36 09:36 11:00 Temperature 97.7 F 98.2 F Pulse Rate 78 77 Respiratory 16 16 20 Rate Blood Pressure 149/70 136/91 (mmHg) O2 Sat by Pulse 95 97 Oximetry Oxygen Devices in Use Now: Nasal Cannula Appearance: NAD, laying in bed Ears/Nose/Mouth/Throat: Mucous Membranes Moist Respiratory: Symmetrical Chest Expansion and Respiratory Effort Skin: - - See skin note below Neurological: Alert and Oriented x 3 - Nutrition: Malnutrition Diagnosis/Plan Malnutrition Assessment by Registered Dietitian: Malnutrition Assessment Clinical Characteristics Acute,Moderate Malnutrition Assessment: - [id number] edema Criteria - po intake > 75% est EEE X > 7 days - wt loss approx 20# since September (from 210# to 190# = 9.5% loss within three months) Malnutrition Assessment: 1. follow results of EGD 3/5 Interventions 2. post-EGD diet progression per GI orders 3. obtain pt's food preferences for clear and full liquid diets 4. if clear liquids: offer Ensure Clear (shipman flavor) @ B-L-D 5. if at least full liquids: vanilla Ensure Enlive B-L-D (pt consumes at home) Malnutrition Assessment: Goals 1. pt will tolerate post-EGD diet progression without adverse GI effects 2. adequate po intake to maintain lean body mass and hydration without add'l wt gain 3. glycemic control within inpatient parameters and without s/sx hypo- or hyperglycemia 4. achieve and maintain serum electrolytes levels WNL 5. achieve and maintain regulated bowel pattern without c/o constipation (or diarrhea) Result Diagrams: 01/02/20 05:15 01/02/20 05:15 Additional Lab and Data: Above labs were pulled in to the note, when the note was edited prior to signing. See below for labs from day of consultation. Laboratory Tests 12/23/19 12/28/19 12/29/19 04:14 05:17 05:02 Hemoglobin A1c 5.6 Total Protein 4.5 L Albumin 2.5 L Prealbumin 16 L 12/30/19 12/30/19 17:50 17:50 WBC 13.0 H Hgb 10.2 L Hct 30 L Plt Count 181 Sodium 137 Potassium TNP Chloride 93 L Carbon Dioxide 35 H BUN 29 H Creatinine 0.64 Glucose 161 H Microbiology and Other Data: SURGICAL PATHOLOGY REPORT 11/25/19 Skin, right ankle, biopsy: -- Ulcer and ulcer bed with reactive vascular hyperplasia and an acute inflammatory exudate; see comment. COMMENT: The histologic differential diagnosis includes vasculopathic ulceration and pyoderma gangrenosum. Electronically Signed by: Flores Abraham MD Reported on: 11/26/19 1103 Skin Deviation Note - Skin Deviation Findings Right forearm - Open area, measures 2 cm x 2 cm x 0.1 cm. The wound base is 100 % red epithelial tissue. There is a scant amount of serous drainage. The surrounding skin is intact. There is an area of adherent necrotic skin flap from 10 to 12 o'clock. Right lateral/posterior lower leg - There are 2 large open areas, the proximal area measures 9 cm x 9 cm x 0.2 cm. The wound base mostly red granulation tissue with a few small areas of yellow necrotic tissue, there is a large epithelial island in the center of the wound and a few smaller ones. There is a scant to small amount of serous drainage. The distal area is 14 cm x 7 cm x 0.2 cm. The wound base is 90 % red granulation tissue and 10% yellow slough. There is scant to a small amount of serous drainage. The surrounding skin is dark erythema vs hemosiderin staining. The open area at the Achilles measures 0.1 cm x 2.5 cm x 0.1 cm. The wound base is 100 % red epithelial tissue. There is scant serous drainage. The surrounding skin is intact. Right anterior/medial lower leg - There are 3 wounds present: #1 - the proximal wound on the anterior leg, measures 1.7 cm x 1.5 cm x 0.1 cm. The wound base is 90% red granulation tissue and 10% black necrotic tissue. #2 - the medial leg wound measures, 4.5 cm x 5 cm x 0.6 cm. The wound base is 80% red granulation tissue and 20 % necrotic tissue. #3 - the distal wound on the anterior leg, measures 0.8 cm x 0.8 cm x 0.1 cm. The wound base is 100% red granulation tissue. There is scant to a small amount of serous drainage from the wounds. The surrounding skin is intact with erythema vs hemosiderin staining. Left medial lower leg - There is an open area, measures 3 cm x 3.5 cm x 0.1 cm. The wound base is 5% red granulation tissue. and 95% adherent yellow necrotic tissue. There is scant to small amount of serous drainage. The surrounding skin is intact. Left posterior lower leg - 2 open areas. The proximal area, measures 3.5 cm x 3.5 cm x 0.1 cm. The wound base is 95 % red granulation tissue and 5 % epithelial islands. There is a small amount of serous drainage. The distal wound , measures 2 cm x 1.8 cm x 0.3 cm. The wound base is 90% yellow necrotic tissue and 10 % red granulation tissue. There is scant serous drainage. The surrounding skin is intact. Left lateral lower leg - There is a cluster of open areas, measures 5 cm x 3.5 cm x 0.1 cm. The wound bases are red granulation tissue. There is scant serous drainage. The surrounding skin is intact, the immediate periwound with a purple discoloration. Bilateral posterior lower legs - See above for right lateral lower leg description. The proximal superficial wounds measure 5 cm x 7 cm x 0.1 cm. The wound base is 100% red granulation tissue. There is an epithelial island in the middle. There is scant serous drainage. The surrounding skin intact. Buttocks - Left buttock with 2 small open areas near the gluteal fold, measures 0.8 cm x 1.5 cm x 0.1 cm ad 0.5 cm x 0.7 cm x 0.1 cm (just above the ruler). The wound bases are 100% pink granulation tissue. There is scant serous drainage. The surrounding skin is intact with slight purplish discoloration around the larger area. Right buttock with no open areas, there is an area of slight purplish discoloration, that is non blanchable. Wound Problem/Plan Assessment: Ms. 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 She was admitted to the hospital for anemia, ABD pain, nausea, vomiting, weakness, and shortness of breath. While in the hospital she was found to have a upper GI bleed. She presented to the hospital with known wounds to bilateral LEs, she follows with the wound clinic and dermatology. She was noted to have open areas to bilateral buttocks at the time of admission. 1. Bilateral LE wounds. Recent skin BX showed possible pyoderma gangrenosum. She is on Dapsone per Dermatology and prednisone. Recommend washing the legs gently with soap and water day as the patient is able o tolerate. Apply a thin layer of barrier cream (orange top) to bilateral legs to the intact skin (this will help protect this skin from any drainage). Apply Vaseline gauze to the open areas on bilateral LEs (Do NOT apply other dressing to the legs, and if Pt is unable to tolerate discontinue use of Vaseline gauze). Keep legs elevated as tolerated. She should continue to follow with the [facility] at discharge. 2. Open areas to bilateral buttocks, caused by moisture associated dermatitis in the setting of incontinence. Pressure may also be a component. Recommend providing incontinence care as needed. Apply barrier cream (orange top) to the area as needed. Frequent turning and repositioning. Use a friction reduction device to move in bed. 3. Moderate malnutrition, acute. As evidenced by mild to moderate edema, decreased oral intake for 7 days, 20 pound weight loss since September 2019. Prealbumin was 16 on 12/23/19. Dietitians are following the patient. 4. History of venous insufficiency and lymphedema. Edema is controlled at this time. 5. Candidiasis. Rash in ABD fold and under bilateral breasts, this is resolving. Agree with Nystatin powder. 6. Obesity. BMI 38.8. 7. Nutrition. Recommend meeting minimal nutrition requirements to assist with wound healing (Protein 1.3-1.5 grams/kg per day and Calories 30-35 kcal/kg per day). Clear liquid diet. 8. Code Status. Full Code Status. 9. Disposition. Inpatient, disposition per primary medicine team. TIME SPENT: Time for this wound consultation was 45 minutes and 35 minutes was spent with the patient discussing past medical history; assessing, measuring, and photographing the wounds; and repositioning the patient. Is Patient a Wound Clinic Patient: Yes - Dr. Nelson - last visit 12/16/19 Current Treatment: Zinc oxide to intact skin, Medihoney and triamcinolone cream to open areas, rolled gauze and medigrip Attending: Catrachita Bates
--- NOTE | 2019-12-30 16:31 | PN ---
Subjective Date of Service: 12/30/19 Interval History: Discussed with patient that she needs to work with PT if her goal is PMRU. She still is hopeful to go to PMRU. Overnight patient felt short of breath and CXR was ordered by overnight provider. Patient is without complaints today. Leg pain is manageable. Denies SOB today, chest pain, abd pain. Still no BM. Family History: Unchanged from Admission Social History: Unchanged from Admission Past Medical History: Unchanged from Admission Objective Active Medications: Acetaminophen (Tylenol Tab*) 975 mg PO Q6H PRN PRN Reason: mild to moderate pain Last Admin: 12/30/19 14:12 Dose: 975 mg Atorvastatin Calcium (Lipitor*) 10 mg PO 2100 [facility] Last Admin: 12/29/19 21:35 Dose: 10 mg Dapsone (Dapsone Tab*) 25 mg PO BID [facility] Last Admin: 12/30/19 09:35 Dose: 25 mg Furosemide (Lasix Tab*) 60 mg PO 0800,1700 [facility] Hydroxyzine HCl (Atarax Tab*) 10 mg PO DAILY [facility] Last Admin: 12/30/19 09:36 Dose: 10 mg Levothyroxine Sodium (Synthroid Tab*) 100 mcg PO DAILY@0600 [facility] Last Admin: 12/30/19 05:35 Dose: 100 mcg Lisinopril (Prinivil Tab*) 20 mg PO DAILY [facility] Last Admin: 12/30/19 09:36 Dose: 20 mg Loperamide HCl (Imodium Cap*) 2 mg PO DAILY [facility] Last Admin: 12/30/19 09:38 Dose: Not Given Melatonin (Melatonin) 3 mg PO BEDTIME PRN PRN Reason: TROUBLE SLEEPING Last Admin: 12/29/19 22:49 Dose: 3 mg Nystatin (Nystatin Top Powder*) 1 applic TOPICAL TID [facility] Last Admin: 12/30/19 14:12 Dose: 1 applic Nystatin (Nystatin Suspension*) 200,000 units PO QID [facility] Last Admin: 12/30/19 14:12 Dose: 200,000 units Ondansetron HCl (Zofran Inj*) 4 mg IV Q4H PRN PRN Reason: NAUSEA/VOMITING Pantoprazole Sodium (Protonix Tab*) 40 mg PO BID [facility] Last Admin: 12/30/19 09:36 Dose: 40 mg Prednisone (Deltasone 10 Mg Tab) 10 mg PO DAILY [facility] Last Admin: 12/30/19 09:36 Dose: 10 mg Vital Signs - 8 hr 12/30/19 12/30/19 12/30/19 08:36 09:36 11:00 Temperature 97.7 F 98.2 F Pulse Rate 78 77 Respiratory 16 16 20 Rate Blood Pressure 149/70 136/91 (mmHg) O2 Sat by Pulse 95 97 Oximetry 12/30/19 12/30/19 12:13 15:33 Temperature 98.9 F Pulse Rate 84 Respiratory 20 20 Rate Blood Pressure 121/42 (mmHg) O2 Sat by Pulse 97 Oximetry Oxygen Devices in Use Now: Nasal Cannula Appearance: Obese, elderly white female, laying upright in bed, appearing comfortable and in NAD Eyes: No Scleral Icterus, - - PERRL Ears/Nose/Mouth/Throat: Mucous Membranes Moist Neck: Trachea Midline Respiratory: Symmetrical Chest Expansion and Respiratory Effort, - - faint crackles in bilateral bases Cardiovascular: NL Sounds; No Murmurs; No JVD, RRR Abdominal: - - abd soft, nontender, nondistended Extremities: - - trace edema to bilateral feet, +1 edema pretibially bilaterally but difficult to assess due to extensive wounds Skin: - - wounds to LEs without purulent drainage Neurological: Alert and Oriented x 3 Result Diagrams: 12/29/19 05:02 12/30/19 06:10 Additional Lab and Data: Above labs were pulled in to the note, when the note was edited prior to signing. See below for labs from day of consultation. Laboratory Tests 12/22/19 12/23/19 12/23/19 09:34 04:14 04:14 WBC 17.5 H Hgb 6.7 L Hct 20 L Plt Count 247 Sodium 135 Potassium 4.5 Chloride 109 Carbon Dioxide 21 L BUN 58 H Creatinine 1.11 H Glucose 156 H Total Protein 6.3 L Albumin 3.2 Assess/Plan/Problems-Billing Assessment: 79 yo female with PMHx HTN, hypothyroidism, PUD, rheumatoid arthritis, IBS, vasculitis, and pyoderma gangrenosum presents with abdominal pain, n/v, and anemia. Admitted to the ICU for hypovolemic shock 2/2 UGIB. Has since improved after endoclipping of duodenal ulcers and has been transferred to the medical floor. - Patient Problems (1) Upper GI bleed Current Visit: Yes Status: Acute Code(s): K92.2 - GASTROINTESTINAL HEMORRHAGE, UNSPECIFIED SNOMED Code(s): 07279532 Comment: -presented with abd pain, n/v -EGD 12/23/19 with old blood in stomach, nonbleeding duodenal ulcers demonstrated -EGD 12/25/19 performed due to continued anemia; duodenal ulcers injected with epi and endoclipped -has received 8 units of PRBCs, 1U FFP, and 1U plts -H&H remains stable -changing protonix to PO -no BM in 4 days but reportedly did not have melena prior to that -home ASA has been discontinued (2) Hypovolemic shock Current Visit: Yes Status: Acute Code(s): R57.1 - HYPOVOLEMIC SHOCK SNOMED Code(s): 10934973 Comment: -UGIB complicated by hypovolemic shock in ICU, has since been hemodynamically stable and is appropriate for the medical floor -R fem line placed in ICU, removed 12/29/19 (3) Acute blood loss anemia Current Visit: Yes Status: Acute Code(s): D62 - ACUTE POSTHEMORRHAGIC ANEMIA SNOMED Code(s): 862843687 Comment: -2/2 GIB as above -has received 8U PRBCs total -H&H stable (4) Leukocytosis Current Visit: Yes Status: Acute Code(s): D72.829 - ELEVATED WHITE BLOOD CELL COUNT, UNSPECIFIED SNOMED Code(s): 938590789 Comment: -leukocytosis started 12/28/19 -unclear of source, perhaps related to LE wounds and prednisone -did complete tx for UTI, and repeat Urine cx is negative -removing femoral line -no other signs of infection at this time (5) UTI (urinary tract infection) Current Visit: Yes Status: Acute Comment: -urine culture positive for proteus -received 5 day course ceftriaxone (6) Anasarca Current Visit: Yes Status: Acute Code(s): R60.1 - GENERALIZED EDEMA SNOMED Code(s): 201601167 Comment: -upper and lower extremity edema, greatly improved today -albumin and prealbumin low, nutrition has recommended TID Ensure -TTE with EF wnl and no diastolic dysfunction -likely related to large volume fluids and transfusions -I&Os and daily weights -initially planning continued IV diuresis but patient has poor IV access, will now use 60mg BID lasix (7) Pyoderma gangrenosum Current Visit: Yes Status: Acute Code(s): L88 - PYODERMA GANGRENOSUM SNOMED Code(s): 72603374 Comment: -confirmed on skin biopsy outpatient -previously on 20mg prednisone total and dapsone -steroids attempted to be weaned previously in setting of GIB but then put on IV hydrocortisone for stress dosing as patient was hypotensive -prednisone 10mg daily now; Dr. Jain feels further taper likely not needed as ASA has been discontinued so lower prednisone dose may be OK in setting of PUD -continue dapsone -appreciate wound consult; NO barrier cream to wounds but can attempt vasaline gauze (8) Hypertension Current Visit: No Status: Chronic Priority: Low Code(s): I10 - ESSENTIAL ( PRIMARY) HYPERTENSION SNOMED Code(s): 07365803 Comment: -previously on atenolol for HTN -has had bradycardia, discontinued atenolol and started lisinopril -has been normotensive overall (9) Hypothyroidism Current Visit: No Status: Chronic Priority: Low Code(s): E03.9 - HYPOTHYROIDISM, UNSPECIFIED SNOMED Code(s): 97162828 Comment: -continue synthroid (10) Esophageal candidiasis Current Visit: Yes Status: Acute Code(s): B37.81 - CANDIDAL ESOPHAGITIS SNOMED Code(s): 79151653 Comment: -demonstrated on EGD -changing nystatin swish and swallow to fluconazole, should continue for 14 days (11) Rheumatoid arthritis Current Visit: No Status: Chronic Priority: Low Code(s): M06.9 - RHEUMATOID ARTHRITIS, UNSPECIFIED SNOMED Code(s): 04085597 Comment: -prednisone plan as above (12) Hypokalemia Current Visit: Yes Status: Acute Code(s): E87.6 - HYPOKALEMIA SNOMED Code( s): 45429250 Comment: -2/2 diuresis -attempted IV replacement but lost IV access -replacing PO (13) DVT prophylaxis Current Visit: No Status: Acute Priority: High Onset Date: 10/14/14 Code (s): [id number] - SNOMED Code(s): 393268450 Comment: -try to ambulate -SCDs are contraindicated d/t LE wounds, chemoprophylaxis contrainidcated d/t GIB (14) Full code status Current Visit: No Status: Acute Priority: High Onset Date: 09/09/14 Code (s): Z78.9 - OTHER SPECIFIED HEALTH STATUS SNOMED Code(s): 387751404 Status and Disposition: if accepted to [facility], then she is medically ready to be discharged there now. Otherwise may be able to go to [facility] as Leeanna Paul has accepted
[2019-12-30] MEDS ORDERED: Fluconazole 100 MG TAB* TAB PO ONE (16:44)
[2019-12-30] MEDS: Furosemide TAB* 20 MG PO SCH (17:19)
[2019-12-30] MEDS: Polyethylene Glycol 3350* 17 GM PACKET PO SCH (17:21)
[2019-12-30 18:13] LABS: CO2 Carbon Dioxide 35 mmol/L (22-32); Calcium 7.5 mg/dL (8.6-10.3); Chloride 93 mmol/L (101-111); Sodium 137 mmol/L (135-145)
[2019-12-30 18:19] LABS: BUN/Creatinine Ratio 45.3 (8-20); Blood Urea Nitrogen 29 mg/dL (6-24); EGFR African American 108.3 (>60); EGFR Non-African American 89.5 (>60); Glucose 161 mg/dL (70-100)
[2019-12-30 18:22] LABS: Hematocrit 30 % (35-47); Hemoglobin 10.2 g/dL (12.0-16.0); Mean Corpuscular HGB Conc 34 g/dL (31-36); Mean Corpuscular Hemoglobin 30 pg (27-31); Mean Corpuscular Volume 88 fL (80-97); Mean Platelet Volume 7.1 fL (7.4-10.4); Platelet Count 181 10^3/uL (150-450); Red Cell Distribution Width 16 % (10-15)
[2019-12-30 18:24] LABS: Anion Gap 9 mmol/L (2-11)
[2019-12-30 18:52] LABS: ABS Lymphocytes 0.5 10^3/ul (1.0-4.8); ABS Monocytes 0.4 10^3/ul (0-0.8); ABS Neutrophils 12.1 10^3/ul (1.5-7.7); Lymphocyte % 3.7 %; Nucleated Red Blood Cells % 0.3
[2019-12-30] MEDS: Atorvastatin* 10 MG TAB PO SCH (20:45)
[2019-12-31 06:09] LABS: Hematocrit 28 % (35-47); Hemoglobin 9.5 g/dL (12.0-16.0); Mean Corpuscular HGB Conc 34 g/dL (31-36); Mean Corpuscular Hemoglobin 30 pg (27-31); Mean Corpuscular Volume 88 fL (80-97); Mean Platelet Volume 6.7 fL (7.4-10.4); Platelet Count 177 10^3/uL (150-450); Red Blood Count 3.19 10^6 /uL (3.70-4.87); Red Cell Distribution Width 16 % (10-15); White Blood Count 10.1 10^3/uL (3.5-10.8)
[2019-12-31 06:27] LABS: BUN/Creatinine Ratio 43.5 (8-20); Calcium 8.1 mg/dL (8.6-10.3); EGFR African American 112.4 (>60); EGFR Non-African American 92.9 (>60); Potassium 3.3 mmol/L (3.5-5.0)
[2019-12-31] MEDS: Levothyroxine TAB* 100 MCG TAB PO SCH (07:22)
[2019-12-31 07:34] LABS: ABS Lymphocytes 0.6 10^3/ul (1.0-4.8); ABS Monocytes 0.5 10^3/ul (0-0.8); Nucleated Red Blood Cells % 0.1
[2019-12-31] MEDS: Loperamide CAP* 2 MG PO SCH (08:41)
[2019-12-31] MEDS: Polyethylene Glycol 3350* 17 GM PACKET PO SCH (08:41)
[2019-12-31] MEDS: hydrOXYzine HCL TAB* 10 MG PO SCH (08:42)
[2019-12-31] MEDS: Potassium Chlor TAB* 20 MEQ TAB.ER PO SCH (08:42)
[2019-12-31] MEDS: Pantoprazole TAB * 40 MG TAB PO SCH ×2 (08:42→21:00)
[2019-12-31] MEDS: Acetaminophen TAB* 325 MG PO PRN ×2 (08:43→18:19)
[2019-12-31] MEDS: Fluconazole 100 MG TAB* TAB PO SCH (08:43)
[2019-12-31] MEDS: Lisinopril TAB* 10 MG PO SCH (08:43)
[2019-12-31] MEDS: Furosemide TAB* 20 MG PO SCH ×2 (08:43→16:12)
[2019-12-31] MEDS: Dapsone TAB* 100 MG PO SCH ×2 (08:48→21:01)
[2019-12-31] MEDS: Nystatin TOP POWDER* 15 GM BTL TOPICAL SCH ×3 (08:48→21:06)
--- NOTE | 2019-12-31 14:57 | PN ---
Subjective Date of Service: 12/31/19 Interval History: Resting in bed on assessment. Reports she feels fatigued today. Denies shortness of breath. Reports "I had fluid on my lungs a few days ago, but I feel much better". Reports leg pain is tolerable and no worse. Family History: Unchanged from Admission Social History: Unchanged from Admission Past Medical History: Unchanged from Admission Objective Active Medications: Acetaminophen (Tylenol Tab*) 975 mg PO Q6H PRN PRN Reason: mild to moderate pain Last Admin: 12/31/19 08:43 Dose: 975 mg Atorvastatin Calcium (Lipitor*) 10 mg PO 2100 [facility] Last Admin: 12/30/19 20:45 Dose: 10 mg Dapsone (Dapsone Tab*) 25 mg PO BID [facility] Last Admin: 12/31/19 08:48 Dose: 25 mg Fluconazole (Diflucan 100 Mg Tab*) 200 mg PO DAILY [facility] Last Admin: 12/31/19 08:43 Dose: 200 mg Furosemide (Lasix Tab*) 60 mg PO 0800,1700 [facility] Last Admin: 12/31/19 08:43 Dose: 60 mg Hydroxyzine HCl (Atarax Tab*) 10 mg PO DAILY [facility] Last Admin: 12/31/19 08:42 Dose: 10 mg Levothyroxine Sodium (Synthroid Tab*) 100 mcg PO DAILY@0600 [facility] Last Admin: 12/31/19 07:22 Dose: 100 mcg Lisinopril (Prinivil Tab*) 20 mg PO DAILY [facility] Last Admin: 12/31/19 08:43 Dose: 20 mg Loperamide HCl (Imodium Cap*) 2 mg PO DAILY [facility] Last Admin: 12/31/19 08:41 Dose: Not Given Melatonin (Melatonin) 3 mg PO BEDTIME PRN PRN Reason: TROUBLE SLEEPING Last Admin: 12/29/19 22:49 Dose: 3 mg Nystatin (Nystatin Top Powder*) 1 applic TOPICAL TID [facility] Last Admin: 12/31/19 08:48 Dose: 1 applic Ondansetron HCl (Zofran Inj*) 4 mg IV Q4H PRN PRN Reason: NAUSEA/VOMITING Pantoprazole Sodium (Protonix Tab*) 40 mg PO BID [facility] Last Admin: 12/31/19 08:42 Dose: 40 mg Polyethylene Glycol/Electrolytes (Miralax (17 Gm Dose Omid)) 17 gm PO DAILY [facility] Last Admin: 12/31/19 08:41 Dose: 17 gm Potassium Chloride (Klor Con Er Tab*) 40 meq PO DAILY [facility] Last Admin: 12/31/19 08:42 Dose: 40 meq Prednisone (Deltasone 10 Mg Tab) 10 mg PO DAILY [facility] Last Admin: 12/31/19 08:42 Dose: 10 mg Vital Signs - 8 hr 12/31/19 12/31/19 12/31/19 07:00 08:00 08:42 Temperature 97.1 F Pulse Rate 71 Respiratory 18 17 17 Rate Blood Pressure 146/88 (mmHg) O2 Sat by Pulse 96 Oximetry 12/31/19 13:27 Temperature Pulse Rate Respiratory 17 Rate Blood Pressure (mmHg) O2 Sat by Pulse Oximetry Oxygen Devices in Use Now: None Appearance: Comfortable Eyes: No Scleral Icterus Ears/Nose/Mouth/Throat: Clear Oropharnyx, Mucous Membranes Moist Neck: NL Appearance and Movements; NL JVP Respiratory: Symmetrical Chest Expansion and Respiratory Effort, Clear to Auscultation Cardiovascular: NL Sounds; No Murmurs; No JVD, RRR, No Edema Abdominal: NL Sounds; No Tenderness; No Distention Lymphatic: No Cervical Adenopathy Extremities: No Edema Skin: - - Bilateral Leg Wounds Neurological: Alert and Oriented x 3 Nutrition: Taking PO's - Nutrition: Malnutrition Diagnosis/Plan Malnutrition Assessment by Registered Dietitian: . Result Diagrams: 12/31/19 05:59 12/31/19 05:59 Additional Lab and Data: Laboratory Results - last 24 hr 12/30/19 12/30/19 12/30/19 17:50 17:50 20:08 WBC 13.0 H RBC 3.40 L Hgb 10.2 L Hct 30 L MCV 88 MCH 30 MCHC 34 RDW 16 H Plt Count 181 MPV 7.1 L Neut % (Auto) 93.1 Lymph % (Auto) 3.7 Teller % (Auto) 3.2 Eos % (Auto) 0.0 Baso % (Auto) 0.0 Absolute Neuts (auto) 12.1 H Absolute Lymphs (auto) 0.5 L Absolute Monos (auto) 0.4 Absolute Eos (auto) 0.0 Absolute Basos (auto) 0.0 Absolute Nucleated RBC 0.0 Immature Gran % 3.0 Neutrophils % 88.0 Band Neutrophils % 1.0 Lymphocytes % 5.0 Monocytes % 4.0 Myelocytes % 2.0 H Nucleated RBC % 0.3 Normal RBC Morphology Normal Sodium 137 Potassium TNP 3.5 Chloride 93 L Carbon Dioxide 35 H Anion Gap 9 BUN 29 H Creatinine 0.64 Est GFR ( Amer) 108.3 Est GFR (Non-Af Amer) 89.5 BUN/Creatinine Ratio 45.3 H Glucose 161 H Calcium 7.5 L 12/31/19 12/31/19 05:59 05:59 WBC 10.1 RBC 3.19 L Hgb 9.5 L Hct 28 L MCV 88 MCH 30 MCHC 34 RDW 16 H Plt Count 177 MPV 6.7 L Neut % (Auto) 89.4 Lymph % (Auto) 6.0 Teller % (Auto) 4.5 Eos % (Auto) 0.0 Baso % (Auto) 0.1 Absolute Neuts (auto) 9.0 H Absolute Lymphs (auto) 0.6 L Absolute Monos (auto) 0.5 Absolute Eos (auto) 0.0 Absolute Basos (auto) 0.0 Absolute Nucleated RBC 0.0 Immature Gran % Neutrophils % Band Neutrophils % Lymphocytes % Monocytes % Myelocytes % Nucleated RBC % 0.1 Normal RBC Morphology Sodium 138 Potassium 3.3 L Chloride 93 L Carbon Dioxide 40 H Anion Gap 5 BUN 27 H Creatinine 0.62 Est GFR ( Amer) 112.4 Est GFR (Non-Af Amer) 92.9 BUN/Creatinine Ratio 43.5 H Glucose 123 H Calcium 8.1 L Microbiology and Other Data: SURGICAL PATHOLOGY REPORT 11/25/19 Skin, right ankle, biopsy: -- Ulcer and ulcer bed with reactive vascular hyperplasia and an acute inflammatory exudate; see comment. COMMENT: The histologic differential diagnosis includes vasculopathic ulceration and pyoderma gangrenosum. Electronically Signed by: Flores Abraham MD Reported on: 11/26/19 1103 Assess/Plan/Problems-Billing Assessment: 79 yo female with PMHx HTN, hypothyroidism, PUD, rheumatoid arthritis, IBS, vasculitis, and pyoderma gangrenosum presents with abdominal pain, n/v, and anemia. Admitted to the ICU for hypovolemic shock 2/2 UGIB. Has since improved after endoclipping of duodenal ulcers and has been transferred to the medical floor. - Patient Problems (1) Upper GI bleed Comment: - H&H remains stable. Recheck tomorrow - Presented with abd pain, n/v - EGD 12/23/19 with old blood in stomach, nonbleeding duodenal ulcers demonstrated - EGD 12/25/19 performed due to continued anemia; duodenal ulcers injected with epi and endoclipped - Received 8 units of PRBCs, 1U FFP, and 1U plts - Cont protonix PO - No BM in 4 days but reportedly did not have melena prior to that. PRN bowel meds ordered. Previously scheduled Immodium stopped - Home ASA has been discontinued (2) Hypovolemic shock Comment: - Vital signs stable. - UGIB complicated by hypovolemic shock in ICU, has since been hemodynamically stable and is appropriate for the medical floor - R fem line placed in ICU, removed 12/29/19 (3) Acute blood loss anemia Comment: - H&H stable. Reassess tomorrow - 2/2 GIB as above - Received 8U PRBCs total (4) Leukocytosis Comment: - Improved as WBC is now 10 - Unclear of source, perhaps related to LE wounds and prednisone - Complete tx for UTI, and repeat Urine cx is negative (5) Anasarca Comment: - No LE edema noted today. Very mild UE edema - Albumin and prealbumin low, nutrition has recommended TID Ensure - TTE with EF wnl and no diastolic dysfunction - Likely related to large volume fluids and transfusions - I&Os and daily weights - Home diuretics restarted (6) Pyoderma gangrenosum Comment: - Diagnosed outpatient by skin biopsy - Previously on 20mg prednisone total and dapsone - Steroids attempted to be weaned previously in setting of GIB but then put on IV hydrocortisone for stress dosing as patient was hypotensive -prednisone 10mg daily now; Dr. Jain feels further taper likely not needed as ASA has been discontinued so lower prednisone dose may be OK in setting of PUD -continue dapsone -appreciate wound consult; NO barrier cream to wounds but can attempt vasaline gauze (7) UTI (urinary tract infection) Comment: - Resolved - Urine culture positive for proteus - Received 5 day course ceftriaxone (8) Esophageal candidiasis SNOMED Code(s): 14191500 Comment: - Continue fluconazole for 14 days total - Demonstrated on EGD - Previously on nystatin swish and swallow (9) Hypertension Comment: - Normotensive - Previously on atenolol for HTN but bradycardia noted therefore discontinued atenolol and started lisinopril (10) Hypothyroidism Comment: - Continue synthroid (11) Hypokalemia Comment: - Replacement ordered. Reassess tomorrow. - 2/2 diuresis (12) Rheumatoid arthritis Comment: - Prednisone plan as above (13) Full code status (14) DVT prophylaxis Comment: - Ambulate - SCDs are contraindicated d/t LE wounds, chemoprophylaxis contrainidcated d/t GIB Status and Disposition: [facility] when stable Attending: Tera Hough
[2019-12-31] MEDS ORDERED: Senna TAB 8.6 mg* TAB PO PRN (15:08)
[2019-12-31] MEDS ORDERED: Magnesium Hydroxide LIQ* 30 ML UDC PO PRN (15:08)
--- NOTE | 2019-12-31 15:18 | DS ---
TRANSFER OF CARE NOTE: DATE OF ADMISSION: 12/22/19 DATE OF THIS NOTE: 12/30/19 DATE OF DISCHARGE/TRANSFER: To be determined (This note was dictated to assist with change of service). PRIMARY DIAGNOSES THUS FAR: 1. Hypovolemic shock secondary to acute blood loss anemia. 2. Upper gastrointestinal bleed, status post duodenal ulcer Endoclipping and epinephrine injection. 3. Urinary tract infection with urine cultures positive for Proteus mirabilis. 4. Esophageal candidiasis. SECONDARY DIAGNOSES: 1. Hypertension. 2. Hypothyroidism. 3. Rheumatoid arthritis. 4. Irritable bowel syndrome. 5. Gastroesophageal reflux disease. 6. Pyoderma gangrenosum. 7. Vasculitis. 8. Lymphedema and chronic venous insufficiency. 9. History of prior peptic ulcer disease. HOSPITAL COURSE THUS FAR: Eloisa Ash is a 79-year-old white female with past medical history significant for prior peptic ulcer disease; hypertension; pyoderma gangrenosum, follows at the wound clinic; GERD; and rheumatoid arthritis, who presented to the emergency department on 12/22/19 due to decreased appetite, nausea, vomiting, abdominal pain, and shortness of breath. The patient had epigastric pain and initially did not have very severe anemia, though her hemoglobin was approximately 2 points lower than her baseline. Ultimately, she did have continuing worsening anemia and her lowest hemoglobin was 6.1. During the course of her hospitalization, she received a total of 8 units of PRBCs, 1 unit of FFP, and platelets. She was in the ICU during this period of time being taken care of by the critical care team. The patient had an endoscopy initially on 12/23/19, which showed old blood in the stomach as well as nonbleeding duodenal ulcers, though the next day the patient had severe anemia with hemoglobin less than 7 and she had a repeat endoscopy the following day on 12/25/19. Dr. Hudson identified actively bleeding duodenal ulcer as there was small red spot on the endoscopy. This ulcer was injected with epinephrine as well as multiple ulcers were Endo-clipped. During this period of time, the patient was on a Protonix drip. The patient ultimately had a stable H and H and was transferred to the medical floor. The patient is now on p.o. b.i.d. Protonix. By the time she arrived to the medical floor, she was quite anasarcic, which is likely due to high volume fluid replacement as well as the high volumes of blood products. She has thus far been responding well to IV diuresis. She has had a transthoracic echocardiogram without evidence of heart failure. Of note, she was feeling short of breath overnight last night and chest x-ray showed some pulmonary edema, which is consistent with her overall peripheral edema and I will continue diuresis. I was planning for IV diuresis further; however, she has lost IV access and multiple ultrasound- guided peripheral IVs have been placed at different points and have infiltrated and we will just continue with oral diuresis at this point. I am going to continue to replace oral potassium as diuresis has caused some hypokalemia. The patient's wounds have been followed by Wound consult, Cecilia Noriega NP. Some instructions have not been followed as ideally as possible, but to this point her wounds have been well cleaned, thanks to the nursing staff and she is having better pain control. The patient was previously on 20 mg total prednisone per day, which likely contributed to her GI bleed, but at home she was additionally taking aspirin. I have tapered her prednisone down to [address] Jain was in agreement with this considering that her aspirin has been stopped and I have restarted her dapsone for treatment of her pyoderma gangrenosum. The patient was previously taking atenolol for her hypertension. A low dose was restarted by the critical care team; however, she did develop some bradycardia at that point. I have discontinued this and started lisinopril and her blood pressure has had good control. Additionally, esophageal candidiasis was noted in her endoscopy. She was initially started on nystatin swish and swallow. Upon further evaluation of literature, it appears fluconazole is superior and I started this today. She should have a 14-day course at minimum. She is not complaining of any throat pain. This is perhaps the reason for her leukocytosis, which restarted at this point thus far her repeat urine culture is negative. I did remove the patient' s femoral line, which was placed during the ICU to reduce further source of infection. Unfortunately, clearly she has poor IV access though and hopefully she will not need more invasive access. Regarding that she had a UTI at presentation, her urine culture grew Proteus mirabilis and she has received 5-day treatment of ceftriaxone and she is asymptomatic and no longer using a Casanova catheter. She did present with acute kidney injury, which has resolved. To this point, the patient is very hopeful for a plan for discharge to include [facility], but to this point the [facility] has not declined or accepted the patient. At this point, she is medically ready to go there; but if not, she does have a bed offer at [facility] [place] for subacute rehab. Please see my progress note from today's date for the physical exam and assessment and plan. This is a brief summary of the patient's hospitalization thus far. This represents a transfer of care note as I am going off service. MICHELLE DANIEL [id number]/[facility] #: [id number]
[2019-12-31] MEDS ORDERED: Potassium Chlor TAB* 20 MEQ TAB.ER PO ONE (16:47)
[2019-12-31] MEDS: Atorvastatin* 10 MG TAB PO SCH (21:01)
[2019-12-31] MEDS: Melatonin 3 MG TAB PO PRN (21:03)
[2019-12-31] MEDS: Triamterene/HCTZ 37.5-25 MG* CAP PO SCH (21:04)
[2020-01-01] MEDS: Levothyroxine TAB* 100 MCG TAB PO SCH (05:22)
[2020-01-01 07:26] LABS: Calcium 8.1 mg/dL (8.6-10.3); Potassium 3.8 mmol/L (3.5-5.0)
[2020-01-01 07:27] LABS: Hematocrit 29 % (35-47); Hemoglobin 9.7 g/dL (12.0-16.0); Mean Corpuscular HGB Conc 33 g/dL (31-36); Mean Corpuscular Hemoglobin 30 pg (27-31); Mean Corpuscular Volume 89 fL (80-97); Red Blood Count 3.28 10^6 /uL (3.70-4.87); Red Cell Distribution Width 17 % (10-15)
[2020-01-01 07:31] LABS: EGFR African American 96.1 (>60); EGFR Non-African American 79.4 (>60)
[2020-01-01 08:57] LABS: ABS Lymphocytes 0.9 10^3/ul (1.0-4.8); ABS Monocytes 0.5 10^3/ul (0-0.8); ABS Neutrophils 10.6 10^3/ul (1.5-7.7); Lymphocyte % 7.2 %; Nucleated Red Blood Cells % 0.1
[2020-01-01 09:00] LABS: Mean Platelet Volume 7.3 fL (7.4-10.4); Platelet Count 162 10^3/uL (150-450)
[2020-01-01] MEDS: Acetaminophen TAB* 325 MG PO PRN ×2 (09:30→20:46)
[2020-01-01] MEDS: Pantoprazole TAB * 40 MG TAB PO SCH ×2 (09:31→20:47)
[2020-01-01] MEDS: Dapsone TAB* 100 MG PO SCH ×2 (09:31→20:47)
[2020-01-01] MEDS: Lisinopril TAB* 10 MG PO SCH (09:33)
[2020-01-01] MEDS: Fluconazole 100 MG TAB* TAB PO SCH (09:33)
[2020-01-01] MEDS: Potassium Chlor TAB* 20 MEQ TAB.ER PO SCH (09:33)
[2020-01-01] MEDS: hydrOXYzine HCL TAB* 10 MG PO SCH (09:33)
[2020-01-01] MEDS: Polyethylene Glycol 3350* 17 GM PACKET PO SCH (09:36)
[2020-01-01] MEDS: Nystatin TOP POWDER* 15 GM BTL TOPICAL SCH ×3 (09:41→20:47)
--- NOTE | 2020-01-01 14:49 | PN ---
Subjective Date of Service: 01/01/20 Interval History: Resting in bed on assessment. Reports she feels much improved today as she is less fatigued. Reports she continues to have leg pain but this is not new and not worse. Denies shortness of breath, cough, cp, fever, chills, nausea, vomiting, diarrhea. Family History: Unchanged from Admission Social History: Unchanged from Admission Past Medical History: Unchanged from Admission Objective Active Medications: Acetaminophen (Tylenol Tab*) 975 mg PO Q6H PRN PRN Reason: mild to moderate pain Last Admin: 01/01/20 09:30 Dose: 975 mg Atorvastatin Calcium (Lipitor*) 10 mg PO 2100 [facility] Last Admin: 12/31/19 21:01 Dose: 10 mg Dapsone (Dapsone Tab*) 25 mg PO BID [facility] Last Admin: 01/01/20 09:31 Dose: 25 mg Fluconazole (Diflucan 100 Mg Tab*) 200 mg PO DAILY [facility] Last Admin: 01/01/20 09:33 Dose: 200 mg Hydroxyzine HCl (Atarax Tab*) 10 mg PO DAILY [facility] Last Admin: 01/01/20 09:33 Dose: 10 mg Levothyroxine Sodium (Synthroid Tab*) 100 mcg PO DAILY@0600 [facility] Last Admin: 01/01/20 05:22 Dose: 100 mcg Lisinopril (Prinivil Tab*) 20 mg PO DAILY [facility] Last Admin: 01/01/20 09:33 Dose: 20 mg Magnesium Hydroxide (Milk Of Magnesia Liq*) 30 ml PO Q6H PRN PRN Reason: CONSTIPATION Last Admin: 12/31/19 16:12 Dose: 30 ml Melatonin (Melatonin) 3 mg PO BEDTIME PRN PRN Reason: TROUBLE SLEEPING Last Admin: 12/31/19 21:03 Dose: 3 mg Nystatin (Nystatin Top Powder*) 1 applic TOPICAL TID [facility] Last Admin: 01/01/20 09:41 Dose: 1 applic Ondansetron HCl (Zofran Inj*) 4 mg IV Q4H PRN PRN Reason: NAUSEA/VOMITING Pantoprazole Sodium (Protonix Tab*) 40 mg PO BID [facility] Last Admin: 01/01/20 09:31 Dose: 40 mg Polyethylene Glycol/Electrolytes (Miralax (17 Gm Dose Omid)) 17 gm PO DAILY [facility] Last Admin: 01/01/20 09:36 Dose: Not Given Potassium Chloride (Klor Con Er Tab*) 40 meq PO DAILY [facility] Last Admin: 01/01/20 09:33 Dose: 40 meq Prednisone (Deltasone 10 Mg Tab) 10 mg PO DAILY [facility] Last Admin: 01/01/20 09:31 Dose: 10 mg Senna (Senokot 8.6 Mg Tab*) 2 tab PO BEDTIME PRN PRN Reason: CONSTIPATION Last Admin: 12/31/19 21:03 Dose: 2 tab Triamterene/HCTZ (Dyazide Cap*) 1 cap PO WeFr@0900 [facility] Last Admin: 12/31/19 21:04 Dose: 1 cap Vital Signs - 8 hr 01/01/20 01/01/20 01/01/20 07:23 08:00 09:33 Temperature 98.2 F Pulse Rate 78 Respiratory 14 18 16 Rate Blood Pressure 138/75 (mmHg) O2 Sat by Pulse 93 Oximetry 01/01/20 01/01/20 10:59 11:37 Temperature 98.4 F Pulse Rate 79 Respiratory 20 20 Rate Blood Pressure 137/63 (mmHg) O2 Sat by Pulse 94 Oximetry Oxygen Devices in Use Now: None Appearance: Comfortable, NAD Eyes: No Scleral Icterus Ears/Nose/Mouth/Throat: Clear Oropharnyx, Mucous Membranes Moist Neck: NL Appearance and Movements; NL JVP Respiratory: Symmetrical Chest Expansion and Respiratory Effort, Clear to Auscultation Cardiovascular: NL Sounds; No Murmurs; No JVD, RRR Abdominal: NL Sounds; No Tenderness; No Distention Lymphatic: No Cervical Adenopathy Extremities: No Edema Skin: - - Bilateral LE wounds Neurological: Alert and Oriented x 3 Nutrition: Taking PO's - Nutrition: Malnutrition Diagnosis/Plan Malnutrition Assessment by Registered Dietitian: Malnutrition Assessment Clinical Characteristics Acute,Moderate Malnutrition Assessment: - [id number] edema Criteria - po intake > 75% est EEE X > 7 days - wt loss approx 20# since September (from 210# to 190# = 9.5% loss within three months) Malnutrition Assessment: 1. follow results of EGD 3/5 Interventions 2. post-EGD diet progression per GI orders 3. obtain pt's food preferences for clear and full liquid diets 4. if clear liquids: offer Ensure Clear (shipman flavor) @ B-L-D 5. if at least full liquids: vanilla Ensure Enlive B-L-D (pt consumes at home) Malnutrition Assessment: Goals 1. pt will tolerate post-EGD diet progression without adverse GI effects 2. adequate po intake to maintain lean body mass and hydration without add'l wt gain 3. glycemic control within inpatient parameters and without s/sx hypo- or hyperglycemia 4. achieve and maintain serum electrolytes levels WNL 5. achieve and maintain regulated bowel pattern without c/o constipation (or diarrhea) Result Diagrams: 01/02/20 05:15 01/02/20 05:15 Additional Lab and Data: Laboratory Results - last 24 hr 01/01/20 01/01/20 06:51 06:51 WBC 12.0 H RBC 3.28 L Hgb 9.7 L Hct 29 L MCV 89 MCH 30 MCHC 33 RDW 17 H Plt Count 162 MPV 7.3 L Neut % (Auto) 88.6 Lymph % (Auto) 7.2 [place] % (Auto) 4.1 Eos % (Auto) 0.0 Baso % (Auto) 0.1 Absolute Neuts (auto) 10.6 H Absolute Lymphs (auto) 0.9 L Absolute Monos (auto) 0.5 Absolute Eos (auto) 0.0 Absolute Basos (auto) 0.0 Absolute Nucleated RBC 0.0 Immature Gran % 3.0 Neutrophils % 80.0 Band Neutrophils % 1.0 Lymphocytes % 9.0 Monocytes % 8.0 Metamyelocytes % 1.0 Myelocytes % 1.0 Nucleated RBC % 0.1 Normal RBC Morphology Normal Sodium 136 Potassium 3.8 Chloride 91 L Carbon Dioxide 38 H Anion Gap 7 BUN 27 H Creatinine 0.71 Est GFR ( Amer) 96.1 Est GFR (Non-Af Amer) 79.4 BUN/Creatinine Ratio 38.0 H Glucose 127 H Calcium 8.1 L Microbiology and Other Data: SURGICAL PATHOLOGY REPORT 11/25/19 Skin, right ankle, biopsy: -- Ulcer and ulcer bed with reactive vascular hyperplasia and an acute inflammatory exudate; see comment. COMMENT: The histologic differential diagnosis includes vasculopathic ulceration and pyoderma gangrenosum. Electronically Signed by: Flores Abraham MD Reported on: 11/26/19 1103 Microbiology 12/29/19 17:20 Urine Culture - Final Urine No Growth (<1,000 CFU/mL) 12/25/19 04:10 Transfusion Reaction Culture - Final Blood Bag No Growth Day 5 Transfusion Reaction Gram Stain - Final 12/24/19 22:39 Transfusion Reaction Culture - Final Blood Bag No Growth Day 5 Transfusion Reaction Gram Stain - Final 12/23/19 12:46 Urine Culture - Final Urine Proteus Mirabilis 12/24/19 11:19 Nasal Screen MRSA (PCR) - Final Nasal Mrsa Not Detected 12/22/19 13:27 Stool Occult Blood (PETER) - Final Stool Assess/Plan/Problems-Billing Assessment: 79 yo female with PMHx HTN, hypothyroidism, PUD, rheumatoid arthritis, IBS, vasculitis, and pyoderma gangrenosum presents with abdominal pain, n/v, and anemia. Admitted to the ICU for hypovolemic shock 2/2 UGIB. Has since improved after endoclipping of duodenal ulcers and has been transferred to the medical floor. - Patient Problems (1) Upper GI bleed Comment: - Stable H&H - Presented with abd pain, n/v - EGD 12/23/19 with old blood in stomach, nonbleeding duodenal ulcers demonstrated - EGD 12/25/19 performed due to continued anemia; duodenal ulcers injected with epi and endoclipped - Received 8 units of PRBCs, 1U FFP, and 1U plts - Cont protonix PO - BM today - Home ASA has been discontinued (2) Hypovolemic shock Comment: - Appears euvolemic - Vital signs stable. - UGIB complicated by hypovolemic shock in ICU - R fem line placed in ICU, removed 12/29/19 (3) Acute blood loss anemia Comment: - H&H stable. - 2/2 GIB as above - Received 8U PRBCs total (4) Leukocytosis Comment: - Slight increase in WBC today. No fever. No S/S of infection. Steriods? - Unclear of source, perhaps related to LE wounds and prednisone - Complete tx for UTI, and repeat Urine cx is negative (5) Anasarca Comment: - Continues to have mild UE edema. - No LE edema - Albumin and prealbumin low, nutrition has recommended TID Ensure - TTE with EF wnl and no diastolic dysfunction - Likely related to large volume fluids and transfusions - I&Os and daily weights - Home diuretics restarted (6) Pyoderma gangrenosum Comment: - Diagnosed outpatient by skin biopsy - Previously on 20mg prednisone total and dapsone - Steroids attempted to be weaned previously in setting of GIB but then put on IV hydrocortisone for stress dosing as patient was hypotensive -prednisone 10mg daily now; Dr. Jain feels further taper likely not needed as ASA has been discontinued so lower prednisone dose may be OK in setting of PUD -continue dapsone -appreciate wound consult; NO barrier cream to wounds but can attempt vasaline gauze (7) UTI (urinary tract infection) Comment: - Resolved - Urine culture positive for proteus - Received 5 day course ceftriaxone (8) Esophageal candidiasis SNOMED Code(s): 50006538 Comment: - Continue fluconazole for 14 days total - Demonstrated on EGD - Previously on nystatin swish and swallow (9) Hypertension Comment: - Normotensive - Previously on atenolol for HTN but bradycardia noted therefore discontinued atenolol and started lisinopril (10) Hypothyroidism Comment: - Continue synthroid (11) Hypokalemia Comment: - WNL today - Replaced yesterday - 2/2 diuresis (12) Rheumatoid arthritis Comment: - Prednisone plan as above (13) Full code status (14) DVT prophylaxis Comment: - Ambulate - SCDs are contraindicated d/t LE wounds, chemoprophylaxis contrainidcated d/t GIB Status and Disposition: [facility] when stable Attending: Annalise Redding
[2020-01-01] MEDS: Atorvastatin* 10 MG TAB PO SCH (20:47)
[2020-01-02 05:32] LABS: Hematocrit 29 % (35-47); Hemoglobin 9.6 g/dL (12.0-16.0); Mean Corpuscular HGB Conc 34 g/dL (31-36); Mean Corpuscular Hemoglobin 30 pg (27-31); Mean Corpuscular Volume 89 fL (80-97); Mean Platelet Volume 6.5 fL (7.4-10.4); Platelet Count 194 10^3/uL (150-450); Red Blood Count 3.22 10^6 /uL (3.70-4.87); Red Cell Distribution Width 16 % (10-15); White Blood Count 10.7 10^3/uL (3.5-10.8)
[2020-01-02] MEDS: Levothyroxine TAB* 100 MCG TAB PO SCH (05:39)
[2020-01-02 05:49] LABS: BUN/Creatinine Ratio 35.8 (8-20); Calcium 8.8 mg/dL (8.6-10.3); EGFR African American 102.7 (>60); EGFR Non-African American 84.9 (>60); Magnesium 1.9 mg/dL (1.9-2.7); Potassium 3.7 mmol/L (3.5-5.0)
[2020-01-02 06:01] LABS: ABS Lymphocytes 0.8 10^3/ul (1.0-4.8); ABS Monocytes 0.5 10^3/ul (0-0.8); ABS Neutrophils 9.4 10^3/ul (1.5-7.7); Lymphocyte % 7.8 %; Nucleated Red Blood Cells % 0.2
[2020-01-02] MEDS: Acetaminophen TAB* 325 MG PO PRN (09:07)
[2020-01-02] MEDS: Polyethylene Glycol 3350* 17 GM PACKET PO SCH (09:08)
[2020-01-02] MEDS: Lisinopril TAB* 10 MG PO SCH (09:08)
[2020-01-02] MEDS: Potassium Chlor TAB* 20 MEQ TAB.ER PO SCH (09:08)
[2020-01-02] MEDS: hydrOXYzine HCL TAB* 10 MG PO SCH (09:08)
[2020-01-02] MEDS: Pantoprazole TAB * 40 MG TAB PO SCH (09:08)
[2020-01-02] MEDS: Fluconazole 100 MG TAB* TAB PO SCH (09:08)
[2020-01-02] MEDS: Nystatin TOP POWDER* 15 GM BTL TOPICAL SCH ×2 (09:09→14:08)
[2020-01-02] MEDS: Dapsone TAB* 100 MG PO SCH (09:14)
[2020-01-02] MEDS: Triamterene/HCTZ 37.5-25 MG* CAP PO SCH (09:15)
[2020-01-02 12:42] VITALS: BP 145/71
[2020-01-02] MEDS ORDERED: Acetaminophen TAB* 325 MG PO ONE (14:00)
--- NOTE | 2020-01-02 22:05 | DS ---
DISCHARGE SUMMARY: ADDENDUM: Please note that there was an adrenal mass measuring 3.1 x 2.[address] of abdomen and pelvis. This is new since 09/10/14. Neoplastic process including metastases should be considered. Therefore, the patient will need followup as an outpatient for further evaluation. SULMA MEZA, DIAN [id number]/[facility] #: [id number] BARBARA
--- NOTE | 2020-01-02 23:39 | DS ---
ADDENDUM NOW INCLUDED ON THIS REPORT DISCHARGE SUMMARY: ADDENDUM: Ms. Cruz is stable for discharge today 01/02/20 to [facility]. DATE OF ADMISSION: 12/22/19 DATE OF DISCHARGE: 01/02/20. ATTENDING PROVIDER: Dr. Hough * (DICTATED BY SULMA MEZA NP) NOTE: Please see discharge summary completed by MICHELLE Branham on . There have been no changes in the patient's discharge plan since the dictation of the discharge summary on 12/30/19. The patient was held here in the hospital to ensure the patient was completely diuresed. The patient was restarted on her oral diuretic and her labs were monitored. The patient has remained stable. The patient is stable for discharge to [facility] today. REVIEW OF SYSTEMS: The patient reports bilateral leg pain that is not new, but chronic since leg wounds. She reports it is mildly improved from previously. The patient denies shortness of breath, chest pain, fever, chills, abdominal pain, nausea, dysuria, hematuria. A 14-point review of systems were completed and all those were negative. PHYSICAL EXAMINATION: Vital Signs: Temp 97.9, HR 76, RR 16, O2 saturation is 95% on room air, BP is 154/81. General: Ms. Ash is lying in bed. Appears to be in no distress. Appears stated age. HEENT: EOMs intact. PERRLA. Oral mucosa is moist without lesion. Posterior pharynx is clear. Sclerae without icterus. Neck: Supple. No lymphadenopathy. Respiratory: Symmetrical chest expansion. No accessory muscle used. Lungs are clear to auscultation. No rhonchi, wheezes, or rubs. CV: Regular rate and rhythm. S1, S2 present. No murmurs, rubs, or gallops. No JVD. Extremities: Skin is warm and smooth bilaterally. The patient has mild edema bilaterally. Pedal pulses 2+ bilaterally. Musculoskeletal: No pain or deformities. Abdomen: Soft and nontender. Bowel sounds normoactive. Last BM was 01/01/20. Neuro: Awake, alert, oriented x4. Skin: The patient has multiple wounds on bilateral legs. LABORATORY DATA: WBC 10.7, hemoglobin 9.6, hematocrit 29, platelets 194. Sodium 138, potassium 3.7, chloride 94, carbon dioxide 39, BUN 24, creatinine 0.67, glucose 118. DISCHARGE PLAN/FOLLOWUP: 1. Upper GI bleed: The patient had duodenal ulcers, injected with epi and Endoclipped. The patient's H and H is stable. The patient is to continue Protonix p.o. The patient should discontinue home aspirin. 2. Hypovolemic shock: The patient is currently euvolemic. Vital signs are stable. 3. Acute blood loss anemia: The patient's H and H are stable. The patient should have a repeat CBC in one week. 4. Leukocytosis: The patient had increasing white blood cells while at admission, but has improved. 5. Anasarca: The patient's edema had apparently improved with diuresis. The patient's edema was likely related a lot of volume of fluids and transfusion. The patient is to continue her home diuretic. 6. Pyoderma gangrenosum: The patient will continue her dapsone and prednisone. 7. UTI: The patient had a urine culture positive for Proteus. The patient received 5-day course of ceftriaxone. The patient is currently symptom-free. 8. Esophageal candidiasis: The patient was noted to have esophageal candidiasis on EGD. The patient was previously on nystatin swish and swallow, but was switched to fluconazole. The patient is to complete 14 days total. The patient has received 3 days as of today 01/02/20. 9. Hypertension: The patient was previously on atenolol, but it was stopped due to bradycardia. The patient was started on lisinopril and has tolerated well. The patient is to continue her lisinopril. 10. Hypothyroid: The patient is to continue her Synthroid. 11. Hypokalemia: The patient did have occasional hypokalemia likely secondary to diuresis. The patient received replacement. The patient is within normal limits. I would recommend a repeat BMP in 1 week. 12. Rheumatoid arthritis: The patient is to continue her prednisone. 13. Followup: I would recommend the patient evaluated by primary care provider in one to three days. The patient should have repeat blood work in one week including CBC and BMP. 14. Education: The patient is educated on signs and symptoms of new or worsening condition and when to return to the emergency department. The patient stated understanding. This case has been reviewed with my attending Dr. Hough, who is in agreement with my plan of care. TIME SPENT: Approximately 35 minutes was spent on discharge, greater than half that time was spent [id number] with the patient discussing discharge plans and instructions. SULMA MEZA NP ADDENDUM: Please note that there was an adrenal mass measuring 3.1 x 2.[address] of abdomen and pelvis. This is new since 09/10/14. Neoplastic process including metastases should be considered. Therefore, the patient will need followup as an outpatient for further evaluation. SULMA MEZA NP [id number]/[facility] #: [id number]/[facility] #: [id number] [place]BARA
== END 2020-01-02 14:20 | DRG 377 ==
LOC: ED 08:58 → MED 13:23 → ICU 12-23 02:38 → MEDTELE 12-27 12:03 → MED 12-31 06:10
PROVIDERS: ADMIT Hospitalist; ATTEND Internal Medicine
PROC: 30233N1 Transfusion of Nonautologous Red Blood Cells into Peripheral Vein, Percutaneous Approach (ICD-10-PCS; 2019-12-23)
PROC: 06HM33Z Insertion of Infusion Device into Right Femoral Vein, Percutaneous Approach (ICD-10-PCS; 2019-12-23)
PROC: 0DJ08ZZ Inspection of Upper Intestinal Tract, Via Natural or Artificial Opening Endoscopic (ICD-10-PCS; 2019-12-23)
PROC: 3E033XZ Introduction of Vasopressor into Peripheral Vein, Percutaneous Approach (ICD-10-PCS; 2019-12-23)
PROC: 0W3P8ZZ Control Bleeding in Gastrointestinal Tract, Via Natural or Artificial Opening Endoscopic (ICD-10-PCS; principal; 2019-12-25)
PROC: 30233L1 Transfusion of Nonautologous Fresh Plasma into Peripheral Vein, Percutaneous Approach (ICD-10-PCS; 2019-12-25)
PROC: 30233R1 Transfusion of Nonautologous Platelets into Peripheral Vein, Percutaneous Approach (ICD-10-PCS; 2019-12-25)
PROC: 30233K1 Transfusion of Nonautologous Frozen Plasma into Peripheral Vein, Percutaneous Approach (ICD-10-PCS; 2019-12-25)
PROC: 3E0G8GC Introduction of Other Therapeutic Substance into Upper GI, Via Natural or Artificial Opening Endoscopic (ICD-10-PCS; 2019-12-25)
DX: K26.4 Chronic or unspecified duodenal ulcer with hemorrhage (principal); R57.1 Hypovolemic shock; N39.0 Urinary tract infection, site not specified; B37.81 Candidal esophagitis; L88 Pyoderma gangrenosum; J81.1 Chronic pulmonary edema; N17.9 Acute kidney failure, unspecified; D62 Acute posthemorrhagic anemia; E27.40 Unspecified adrenocortical insufficiency; G93.40 Encephalopathy, unspecified; B96.4 Proteus (mirabilis) (morganii) as the cause of diseases classified elsewhere; M48.00 Spinal stenosis, site unspecified; M41.9 Scoliosis, unspecified; G43.909 Migraine, unspecified, not intractable, without status migrainosus; M81.0 Age-related osteoporosis without current pathological fracture; R79.89 Other specified abnormal findings of blood chemistry; E27.9 Disorder of adrenal gland, unspecified; N28.1 Cyst of kidney, acquired; K42.9 Umbilical hernia without obstruction or gangrene; I10 Essential (primary) hypertension; E03.9 Hypothyroidism, unspecified; M06.9 Rheumatoid arthritis, unspecified; K58.9 Irritable bowel syndrome, unspecified; K21.9 Gastro-esophageal reflux disease without esophagitis; I77.6 Arteritis, unspecified; I89.0 Lymphedema, not elsewhere classified; I87.2 Venous insufficiency (chronic) (peripheral); E66.9 Obesity, unspecified; I95.9 Hypotension, unspecified; E78.5 Hyperlipidemia, unspecified; E83.51 Hypocalcemia; E83.39 Other disorders of phosphorus metabolism; E83.42 Hypomagnesemia; S51.801A Unspecified open wound of right forearm, initial encounter; S81.801A Unspecified open wound, right lower leg, initial encounter; S81.802A Unspecified open wound, left lower leg, initial encounter; S31.829A Unspecified open wound of left buttock, initial encounter; L30.9 Dermatitis, unspecified; K57.90 Diverticulosis of intestine, part unspecified, without perforation or abscess without bleeding; L89.899 Pressure ulcer of other site, unspecified stage; Z53.09 Procedure and treatment not carried out because of other contraindication; K44.9 Diaphragmatic hernia without obstruction or gangrene; K20.8 Other esophagitis; E87.6 Hypokalemia; T50.2X5A Adverse effect of carbonic-anhydrase inhibitors, benzothiadiazides and other diuretics, initial encounter; Y92.239 Unspecified place in hospital as the place of occurrence of the external cause; T38.0X5A Adverse effect of glucocorticoids and synthetic analogues, initial encounter; R00.1 Bradycardia, unspecified; Z88.2 Allergy status to sulfonamides; Z87.11 Personal history of peptic ulcer disease; Z88.1 Allergy status to other antibiotic agents; Z88.0 Allergy status to penicillin; Z91.013 Allergy to seafood; Z86.718 Personal history of other venous thrombosis and embolism; Z90.49 Acquired absence of other specified parts of digestive tract; Z90.710 Acquired absence of both cervix and uterus; Z68.38 Body mass index [BMI] 38.0-38.9, adult
CPT/HCPCS: 36415; 70450; 71045; 74176; 80048; 80053; 80076; 81003; 81015; 82272; 82330; 83036; 83605; 83690; 83735; 84100; 84134; 84443; 84484; 85014; 85018; 85025; 85027; 85610; 85730; 86078; 86140; 86850; 86900; 86901; 86922; 86927; 87077; 87086; 87186; 87641; 93005; 93306; 96374; 99156; 99157; 99285; A9270-GY; J0171; J0360; J0610; J0696; J1650; J1720; J1940; J2250; J2270; J2405; J3010; J3475; J3480; J7512; P9017; P9035; P9040